=== PATIENT | male | born 1965 | race Caucasian/White ===

== ENCOUNTER → 2018-01-28 | Outpatient (CLI) | payer BC ==
--- NOTE | 2018-01-28 18:06 | XR ---
EXAMINATION TYPE: XR cervical spine comp DATE OF EXAM: 01/28/2018 COMPARISON: NONE HISTORY: Neck pain TECHNIQUE: 5 views FINDINGS: There is narrowing of C5-6 disc space widths mild spurring of the endplates. There is sligh t straightening of the vertebra. Posterior elements are intact. Neural foramina are fairly well-maint ained. Atlantoaxial facet joint is normal. There are no cervical ribs. IMPRESSION: Spondylosis at C5-6. No fracture.
--- NOTE | 2018-01-28 18:07 | XR ---
EXAMINATION TYPE: XR thoracic spine complete DATE OF EXAM: 01/28/2018 COMPARISON: NONE HISTORY: Pain TECHNIQUE: 4 views FINDINGS: Thoracic vertebra have normal alignment. Disc spaces are fairly normal. There is no evidenc e of a compression fracture. There is no paraspinal mass. Posterior elements appear intact. IMPRESSION: Negative thoracic spine exam.
--- NOTE | 2018-01-28 18:10 | XR ---
EXAMINATION TYPE: XR knee complete bilateral DATE OF EXAM: 01/28/2018 COMPARISON: NONE HISTORY: Pain TECHNIQUE: 6 views FINDINGS: I see no fracture nor dislocation. Joint spaces are fairly normal. There is no sign of join t effusion. IMPRESSION: Negative bilateral knee exam.
--- NOTE | 2018-01-28 18:11 | XR ---
EXAMINATION TYPE: XR lumbosacral spine min 4V DATE OF EXAM: 01/28/2018 COMPARISON: NONE HISTORY: Pain TECHNIQUE: 5 views FINDINGS: The lumbar vertebra have normal alignment. Posterior elements are intact. Disc spaces are n ormal. Sacroiliac joints are normal. IMPRESSION: Negative lumbar spine exam.
--- NOTE | 2018-01-28 18:13 | XR ---
EXAMINATION TYPE: XR ankle complete bilateral DATE OF EXAM: 01/28/2018 COMPARISON: NONE HISTORY: Pain TECHNIQUE: 6 views FINDINGS: Joint spaces are normal. I see no fracture nor dislocation. Soft tissues appear normal. The re are no pathologic calcifications. IMPRESSION: Negative bilateral ankle exam.
== END | disposition home or self-care (01) ==
LOC: RADXRMAIN 16:50
PROVIDERS: ATTEND Internal Medicine
DX: M47.812 Spondylosis without myelopathy or radiculopathy, cervical region (principal); M25.569 Pain in unspecified knee; M25.579 Pain in unspecified ankle and joints of unspecified foot
CPT/HCPCS: 72050; 72072; 72110

== ENCOUNTER → 2018-02-25 | Outpatient (CLI) | payer BC ==
--- NOTE | 2018-02-25 10:21 | CT ---
EXAMINATION TYPE: CT cervical spine wo con DATE OF EXAM: 02/25/2018 COMPARISON: NONE HISTORY: Neck pain and stiffness CT DLP: 618.40 mGycm Automated exposure control for dose reduction was used. TECHNIQUE: CT scan of the cervical spine is obtained without contrast, axial images are obtained, sa gittal and coronal reformatted images are also reviewed. FINDINGS: There is loss of disc height C5-6. Minimal kyphosis at C5-6 may be present. Endplate spurring has mod erate anterior thecal sac compression. Some cord contact may be present. Stenosis by measurement crit eria is not present. Bilateral severe foraminal narrowing is present due to uncovertebral joint hyper trophy C5-6. IMPRESSION: 1. Focal degenerative disc changes with loss of disc height C5-6. Uncovertebral joint hypertrophy is contributing to bilateral foraminal stenosis at that level. Endplate spurring is contributing to spin al canal narrowing. Some cord contact may be present. Consider MRI for additional evaluation of these findings. 2. Remaining disc levels have a more normal appearance.
--- NOTE | 2018-02-25 10:42 | CT ---
EXAMINATION TYPE: CT lumbar spine wo con DATE OF EXAM: 02/25/2018 COMPARISON: NONE HISTORY: Low back pain. Stiffness, Loss of range of motion CT DLP: 702.10 mGycm CONTRAST: None TECHNIQUE: CT of the lumbar spine is performed on a spiral scan at 3 mm thick sections. Reconstructed images are performed in the coronal and sagittal planes. FINDINGS: There is mild symmetrical disc bulging L3-4 and L4-5 with mild anterior thecal sac flatteni ng. No AP spinal canal stenosis. Neural foramen are patent. Mild facet hypertrophy is present L4-5. There is minimal disc bulge at L5-S1 with anterior thecal sac contact. No stenosis is present. Remaining disc levels appear unremarkable without focal disc herniation or significant disc bulge or spinal canal stenosis or neural foraminal stenosis IMPRESSION: Mild disc bulging L3-4, L4-5 and to a lesser degree L5-S1.
== END | disposition home or self-care (01) ==
LOC: RADCTMAIN 07:28
PROVIDERS: ATTEND Internal Medicine
DX: M48.02 Spinal stenosis, cervical region (principal); M99.71 Connective tissue and disc stenosis of intervertebral foramina of cervical region; M51.27 Other intervertebral disc displacement, lumbosacral region; M47.812 Spondylosis without myelopathy or radiculopathy, cervical region
CPT/HCPCS: 72125; 72131

== ENCOUNTER 2020-10-02 20:07 | Inpatient (IN) | payer BC ==
[2020-10-02] MEDS ORDERED: SODIUM CHLORIDE 0.9% 1,000 ML IV ONE (20:16)
[2020-10-02] MEDS ORDERED: HYDROmorphone 1 MG/ML 1 ML SYRINGE IVP STA (20:16)
--- NOTE | 2020-10-02 20:18 | ED ---
Abdominal Pain HPI - General Chief Complaint: Abdominal Pain Stated Complaint: ABD pain Time Seen by Provider: 10/02/20 20:12 Source: patient Mode of arrival: ambulatory Limitations: no limitations - History of Present Illness Initial Comments: 54-year-old male patient presents to the emergency department today for evaluation of right-sided abdominal pain. Patient states the pain started earlier this afternoon has been gradually worsening since. States the pain started in the midepigastric region has now migrated down to the right lower abdomen. States he has had several episodes of nausea but no vomiting. States he did one episode of diarrhea this morning but has had normal bowel movements since. Denies any hematuria, dysuria, urinary frequency, urinary urgency. Denies history of abdominal surgery. Denies any fever or chills. Denies any other medical problems. Denies any known aortic aneurysms. Patient denies any recent rash, cough, shortness of breath, chest pain, back pain, numbness, tingling, dizziness, weakness, headache, visual changes, or any other complaints. - Related Data Home Medications Medication Instructions Recorded Confirmed Tadalafil [Cialis] 5 mg PO DAILY 09/26/14 09/28/14 Allergies Allergy/AdvReac Type Severity Reaction Status Date / Time No Known Allergies Allergy Verified 10/02/20 20:11 Review of Systems ROS Statement: Those systems with pertinent positive or pertinent negative responses have been documented in the HPI. ROS Other: All systems not noted in ROS Statement are negative. Past Medical History Past Medical History: Atrial Fibrillation, Prostate Disorder Additional Past Medical History / Comment(s): HX OF AFIB, NO LONGER ON MEDICATION, HX BLOOD IN STOOL, AND HEMMORIODS History of Any Multi-Drug Resistant Organisms: None Reported Past Surgical History: Cardiac Ablation Additional Past Surgical History / Comment(s): ABLATION X2 Past Anesthesia/Blood Transfusion Reactions: No Reported Reaction Past Psychological History: No Psychological Hx Reported Smoking Status: Never smoker Past Alcohol Use History: Occasional Past Drug Use History: None Reported General Exam Limitations: no limitations General appearance: alert, in no apparent distress, other (This is a well- developed, well-nourished adult male patient in mild distress related to pain. Vital signs upon presentation are temperature 98.3F, pulse 81, respirations 16, blood pressure 175/104, pulse ox 97% on room air.) Eye exam: Absent: scleral icterus Respiratory exam: Present: normal lung sounds bilaterally. Absent: respiratory distress, wheezes, rales, rhonchi, stridor Cardiovascular Exam: Present: regular rate, normal rhythm, normal heart sounds. Absent: systolic murmur, diastolic murmur, rubs, gallop, clicks GI/Abdominal exam: Present: soft, tenderness (Right upper and right lower quadrant tenderness), guarding, normal bowel sounds. Absent: distended, rebound, rigid Neurological exam: Present: alert, oriented X3, CN II-XII intact Psychiatric exam: Present: normal affect, normal mood Skin exam: Present: warm, dry, intact, normal color. Absent: rash Course Vital Signs 10/02/20 10/02/20 10/02/20 20:09 21:00 21:30 Temperature 98.3 F Pulse Rate 81 89 84 Respiratory 16 18 18 Rate Blood Pressure 175/104 159/95 156/102 O2 Sat by Pulse 97 97 94 L Oximetry 10/02/20 10/02/20 22:00 22:30 Temperature Pulse Rate 69 76 Respiratory 18 16 Rate Blood Pressure 158/104 164/107 O2 Sat by Pulse 96 95 Oximetry Medical Decision Making - Medical Decision Making 54-year-old male patient presents to the emergency department today for evaluation of right-sided abdominal pain and nausea. Physical examination did reveal right upper quadrant right lower quadrant abdominal tenderness. Did have one episode of diarrhea this morning but normal bowel movement this evening. No urinary discomfort or related labs reviewed and are relatively unremarkable. CT abdomen and pelvis was obtained and did show abnormalities including inflammatory changes of the mesentery with a 9 cm x 5 cm ovoid mass with mass effect possible internal hernia. Patient was given pain medication and nausea medication. Upon reevaluation is still quite uncomfortable with significant abdominal tenderness and guarding. We'll admit to the hospital for further evaluation by general surgery. Patient is agreeable with this plan. Attempts were made to contact [facility] for admission without response so patient was admitted to [facility] per new protocol. - Lab Data Result diagrams: 10/02/20 20:22 10/02/20 20:22 Lab Results 10/02/20 10/02/20 10/02/20 Range/Units 20:22 20:22 20:22 WBC 10.5 (3.8-10.6) k/uL RBC 4.82 (4.30-5.90) m/uL Hgb 15.9 (13.0-17.5) gm/dL Hct 45.5 (39.0-53.0) % MCV 94.3 (80.0-100.0) fL MCH 32.9 (25.0-35.0) pg MCHC 34.9 (31.0-37.0) g/dL RDW 12.0 (11.5-15.5) % Plt Count 198 (150-450) k/uL MPV 7.2 Neutrophils % 82 % Lymphocytes % 11 % Monocytes % 5 % Eosinophils % 1 % Basophils % 1 % Neutrophils # 8.6 H (1.3-7.7) k/uL Lymphocytes # 1.1 (1.0-4.8) k/uL Monocytes # 0.5 (0-1.0) k/uL Eosinophils # 0.1 (0-0.7) k/uL Basophils # 0.1 (0-0.2) k/uL Sodium 139 (137-145) mmol/L Potassium 4.4 (3.5-5.1) mmol/L Chloride 102 (98-107) mmol/L Carbon Dioxide 32 H (22-30) mmol/L Anion Gap 5 mmol/L BUN 15 (9-20) mg/dL Creatinine 0.94 (0.66-1.25) mg/dL Est GFR (CKD-EPI)AfAm >90 (>60 ml/min/1.73 sqM) Est GFR (CKD-EPI)NonAf >90 (>60 ml/min/1.73 sqM) Glucose 128 H (74-99) mg/dL Plasma Lactic Acid Roshan 0.9 (0.7-2.0) mmol/L Calcium 9.4 (8.4-10.2) mg/dL Total Bilirubin 1.3 (0.2-1.3) mg/dL AST 29 (17-59) U/L ALT 36 (4-49) U/L Alkaline Phosphatase 82 (38-126) U/L Total Protein 7.4 (6.3-8.2) g/dL Albumin 4.6 (3.5-5.0) g/dL Amylase 50 (30-110) U/L Lipase 64 (23-300) U/L - Radiology Data Radiology results: report reviewed, image reviewed CT abdomen and pelvis was obtained report reviewed in its entirety. Impression by Dr. Carbajal shows yanira mesentery appearance. Consider inflammatory etiologies. Neoplasm such as lymphoma not excluded. Digestive internal hernia focal mass effect. No polyps section. Finding was present on 2018 CT without significant interval change favoring benign etiology. Disposition Clinical Impression: Abdominal pain, Internal hernia Disposition: ADMITTED IP TO THIS [facility] Condition: Serious Referrals: Isrrael Zepeda MD [Primary Care Provider] - 1-2 days Decision to Admit Reason: Admit from [facility] Decision Date: 10/02/20 Decision Time: 23:00
[2020-10-02] MEDS: ONDANSETRON 4 MG/2 ML VIAL IVP STA (20:27)
[2020-10-02 20:29] LABS: Basophils # (A) 0.1 k/uL (0-0.2); Basophils % (A) 1 %; Eosinophils # (A) 0.1 k/uL (0-0.7); Eosinophils % (A) 1 %; HCT 45.5 % (39.0-53.0); HGB 15.9 gm/dL (13.0-17.5); Lymphocytes # (A) 1.1 k/uL (1.0-4.8); Lymphocytes % (A) 11 %; MCH 32.9 pg (25.0-35.0); MCHC 34.9 g/dL (31.0-37.0); MCV 94.3 fL (80.0-100.0); Mean Platelet Volume 7.2; Monocytes # (A) 0.5 k/uL (0-1.0); Monocytes % (A) 5 %; Neutrophils # (A) 8.6 k/uL (1.3-7.7); Neutrophils % (A) 82 %; Platelet Count 198 k/uL (150-450); RBC 4.82 m/uL (4.30-5.90); WBC 10.5 k/uL (3.8-10.6)
[2020-10-02 20:39] LABS: ALT 36 U/L (4-49); AST 29 U/L (17-59); African American GFR (CKD) >90 (>60 ml/min/1.73 sqM); Albumin 4.6 g/dL (3.5-5.0); Alkaline Phosphatase 82 U/L (38-126); Amylase 50 U/L (30-110); Anion Gap 5 mmol/L; Blood Urea Nitrogen 15 mg/dL (9-20); Calcium 9.4 mg/dL (8.4-10.2); Carbon Dioxide 32 mmol/L (22-30); Chloride 102 mmol/L (98-107); Glucose 128 mg/dL (74-99); Lipase 64 U/L (23-300); Non-African American GFR(CKD) >90 (>60 ml/min/1.73 sqM); Potassium 4.4 mmol/L (3.5-5.1); Sodium 139 mmol/L (137-145); Total Bilirubin 1.3 mg/dL (0.2-1.3); Total Protein 7.4 g/dL (6.3-8.2)
--- NOTE | 2020-10-02 21:25 | CT ---
EXAMINATION TYPE: CT abdomen pelvis w con DATE OF EXAM: 10/02/2020 COMPARISON: None. HISTORY: Generalized abdominal pain that started today. CT DLP: 1200.2 mGycm, Automated Exposure Control for Dose Reduction was Utilized. CONTRAST: CT scan of the abdomen and pelvis is performed without oral but with IV Contrast, patient injected wi th 100ml mL of Isovue 300. FINDINGS: LUNG BASES: No significant abnormality is appreciated. LIVER/GB: Liver is heterogeneously hypodense relative to spleen suggesting mild diffuse fatty infiltr ation. PANCREAS: No significant abnormality is seen. SPLEEN: No significant abnormality is seen. ADRENALS: Nonspecific 1.9 cm left adrenal mass axial image 24. Lesion noted CT lumbar spine 2018 axia l image 15 with Hounsfield units measure -2 consistent with benign lipid rich adenoma. KIDNEYS: Symmetric cortical medullary uptake and excretion without concerning renal mass or hydroneph rosis seen bilaterally. BOWEL: Suboptimal evaluation without enteric contrast. Debris-filled stomach suggests recent meal ing estion. No suspicious small or large bowel dilatation. PROSTATE/SEMINAL VESICLES: Mildly Enlarged prostate gland consistent with BPH, correlate clinically. LYMPH NODES: Mild yanira mesentery appearance in the left midabdomen with prominent but predominantly subcentimeter lymph nodes. A few slightly enlarged lymph nodes including 2.2 x 2.1 cm lymph node axia l image 42. There is suggestion of local mass effect due to ovoid 9.5 x 5.0 cm area axial image 43, p ossible internal hernia. Some prominence of mesenteric vessels on coronal images without obvious defi arthur lesion, suggestion of more defined lesion on sagittal images with some prominent mesenteric vesse ls. Findings were present and partially imaged on February 25, 2018 CT. OSSEOUS STRUCTURES: Mild disc space narrowing L5-S1 level. Mild facet arthropathy lower lumbar levels . Moderate to borderline severe symmetric axial joint space loss in both hips somewhat pronounced for patient's age. OTHER: No significant additional abnormality is seen. IMPRESSION: Yanira mesentery appearance. Consider inflammatory etiologies. Neoplasm such as lymphoma n ot excluded. Suggestion of internal hernia with local mass effect. No bowel obstruction. Finding was present on 2018 CT without significant interval change favoring benign etiology.
[2020-10-02] MEDS ORDERED: NALOXONE 0.4 MG/ML 1 ML VIAL IV PRN (22:10)
[2020-10-02] MEDS ORDERED: HYDROmorphone 1 MG/ML 1 ML SYRINGE IVP PRN (22:10)
[2020-10-02] MEDS ORDERED: ONDANSETRON 4 MG/2 ML VIAL IVP PRN (22:10)
[2020-10-02] MEDS: SODIUM CHLORIDE 0.9% 1,000 ML IV SCH (22:32)
[2020-10-02 22:49] LABS: Appearance,Urine Clear (Clear); Bilirubin,Urine Negative (Negative); Blood,Urine Negative (Negative); Color,Urine Yellow; Glucose,Urine (UA) Negative (Negative); Ketones,Urine 1+ (Negative); Leukocyte Esterase,Urine Negative (Negative); Nitrite,Urine Negative (Negative); PH, Urine 6.5 (5.0-8.0); Protein,Urine Negative (Negative); Urobilinogen,Urine <2.0 mg/dL (<2.0)
[2020-10-02] MEDS ORDERED: tiZANidine 4 MG TAB PO PRN (23:46)
[2020-10-03] MEDS ORDERED: KETOROLAC 15 MG/ML 1 ML VIAL IVP STA (00:19)
[2020-10-03] MEDS ORDERED: KETOROLAC 15 MG/ML 1 ML VIAL IVP PRN (01:04)
--- NOTE | 2020-10-03 01:29 | P.HPIM ---
History of Present Illness H&P Date: 10/02/20 Chief Complaint: abd pain 54 year old male with hypertension , not currently on treatment, h/o afib s/p ablation patient comes in with abd pain started in the afternoon as epigastric abd pain , then shifted to right lower quadrant abd pain. 8-10/10 in severity , sharp pa in , worse with movement, one episode of diarrhea resolved, no bleeding, no sebas, no vomiting, but positive nausea, no fever, no chills, no histroy of renal stones, no dysuria or other urinary symptoms , no hematuria , no flank pain , no [place] to abd, no recent travel , no unsanitary food or drink. pain is not improving, he denies any similar episodes in the past in the ED pain improved with dilaudid but comes back once medication wears off patient does regular core muscle exercising, denies heavy alcohol use, denies any drug use, blood work unremarkable CT abd , showed unchanged compared to [address] enlargement, prominent mesenteric blood vessels and internal hernia Review of Systems Pertinent positives as noted in HPI. All other systems were reviewed and are negative Past Medical History Past Medical History: Atrial Fibrillation, Prostate Disorder Additional Past Medical History / Comment(s): HX OF AFIB, NO LONGER ON MEDICATION, HX BLOOD IN STOOL, AND HEMMORIODS History of Any Multi-Drug Resistant Organisms: None Reported Past Surgical History: Cardiac Ablation Additional Past Surgical History / Comment(s): ABLATION X2 Past Anesthesia/Blood Transfusion Reactions: No Reported Reaction Past Psychological History: No Psychological Hx Reported Smoking Status: Never smoker Past Alcohol Use History: Occasional Past Drug Use History: None Reported - Past Family History family Additional Family Medical History / Comment(s): rossy runs in the family Medications and Allergies Home Medications Medication Instructions Recorded Confirmed Type Tadalafil [Cialis] 5 mg PO DAILY 09/26/14 10/02/20 History tiZANidine HCL [Zanaflex] 4 mg PO HS PRN 10/02/20 10/02/20 History Allergies Allergy/AdvReac Type Severity Reaction Status Date / Time No Known Allergies Allergy Verified 10/02/20 23:13 Physical Exam Vitals: Vital Signs Temp Pulse Resp BP Pulse Ox 10/02/20 23:03 98.0 F 60 18 153/94 100 10/02/20 23:00 75 18 147/95 95 10/02/20 22:30 76 16 164/107 95 10/02/20 22:00 69 18 158/104 96 10/02/20 21:30 84 18 156/102 94 L 10/02/20 21:00 89 18 159/95 97 10/02/20 20:09 98.3 F 81 16 175/104 97 Intake and Output 10/02/20 10/02/20 10/03/20 14:59 22:59 06:59 Other: Weight 102.058 kg Constitutional: No acute distress, conversant, pleasant Eyes: Anicteric sclerae, moist conjunctiva, Pupils equal round reactive to light ENMT: NC/AT Oropharynx clear, no erythema, or exudates Neck: Supple, FROM, no masses, or JVD No carotid bruits No thyromegaly Lungs: Clear to auscultation Clear to percussion Normal respiratory effort, no accessory muscle use Cardiovascular: Heart regular in rate and rhythm, No murmurs, gallops, or rubs No peripheral edema Abdominal: Soft tenderness to superficial and deep palpation with voluntary guarding especially on the right side of abd, no palpable masses , no rebound Abdomen moving with respiration Normoactive bowel sounds No hepatomegaly, No splenomegaly No palpable mass No abdominal wall hernia noted Skin: Normal temperature, tone, texture, turgor No induration No subcutaneous nodules No rash, lesions No ulcers Extremities: No digital cyanosis No clubbing Pedal pulses intact and symmetrical Radial pulses intact and symmetrical No calf tenderness Psychiatric: Alert and oriented to person, place and time Appropriate affect fair judgement Neuro Muscles Strength 5/5 in all 4 extremities Sensation to light touch grossly present throughout Cranial nerves II-XII grossly intact No focal sensory deficits Lymphatics: no palpable cervical or supraclavicular , or inguinal lymph nodes Results CBC & Chem 7: 10/02/20 20:22 10/02/20 20:22 Labs: Abnormal Lab Results - Last 24 Hours (Table) 10/02/20 10/02/20 10/02/20 Range/Units 20:22 20:22 22:26 Neutrophils # 8.6 H (1.3-7.7) k/uL Carbon Dioxide 32 H (22-30) mmol/L Glucose 128 H (74-99) mg/dL Ur Specific [place] 1.050 H (1.001-1.035) Urine Ketones 1+ H (Negative) Assessment and Plan Assessment: acute abd pain pain control supportive care IVF hydration General surgery consult lipase , LA unremarkable check CPK CT abd noted NPO AMN chronic condition h/o afib s/p ablation hypertension , with dietry and life style modification , not currently on pharmacologic treatment BPH degenerative disc disease, muscle relaxants CODE STATUS:full code DVT prophylaxis: mechanical Discussed with: Patient, ER, RN Anticipated length of stay < than [address]: home A total of 75 minutes was spent on the care of this complex patient more than 50% of the time was spent in counseling and care coordination.
[2020-10-03] MEDS: HYDROmorphone 0.5 MG/0.5 ML SYRINGE IVP PRN ×2 (01:54→08:12)
[2020-10-03 08:21] LABS: Basophils % (A) 0 %; Eosinophils # (A) 0.1 k/uL (0-0.7); Eosinophils % (A) 1 %; HCT 42.1 % (39.0-53.0); HGB 14.3 gm/dL (13.0-17.5); Lymphocytes # (A) 1.3 k/uL (1.0-4.8); Lymphocytes % (A) 15 %; MCH 31.4 pg (25.0-35.0); MCHC 33.9 g/dL (31.0-37.0); MCV 92.7 fL (80.0-100.0); Monocytes # (A) 0.5 k/uL (0-1.0); Monocytes % (A) 6 %; Neutrophils # (A) 6.3 k/uL (1.3-7.7); Neutrophils % (A) 77 %; Platelet Count 185 k/uL (150-450); RBC 4.54 m/uL (4.30-5.90); RDW 12.6 % (11.5-15.5); WBC 8.1 k/uL (3.8-10.6)
[2020-10-03 08:43] LABS: ALT 27 U/L (4-49); AST 22 U/L (17-59); African American GFR (CKD) >90 (>60 ml/min/1.73 sqM); Albumin 3.7 g/dL (3.5-5.0); Alkaline Phosphatase 69 U/L (38-126); Anion Gap 5 mmol/L; Blood Urea Nitrogen 11 mg/dL (9-20); Calcium 8.4 mg/dL (8.4-10.2); Carbon Dioxide 27 mmol/L (22-30); Chloride 105 mmol/L (98-107); Glucose 97 mg/dL (74-99); Non-African American GFR(CKD) >90 (>60 ml/min/1.73 sqM); Potassium 3.7 mmol/L (3.5-5.1); Sodium 137 mmol/L (137-145); Total Bilirubin 1.7 mg/dL (0.2-1.3); Total Protein 6.1 g/dL (6.3-8.2)
--- NOTE | 2020-10-03 09:59 | P.GSCN ---
History of Present Illness Consult date: 10/03/20 History of present illness: CHIEF COMPLAINT: Abdominal pain HISTORY OF PRESENT ILLNESS: This is a 54-year-old male with a known past medical history of atrial fibrillation and treated with cardiac ablation. He is not on any medication or anticoagulation for his atrial fibrillation. Patient presents to the emergency room with sudden right-sided abdominal pain that started around noon yesterday and continued to increase in intensity. He reports that the pain started on the right lower quadrant and radiated up the right side of the abdomen. The pain became so severe that he was doubled over. He has never had pain like this before. He denies any prior abdominal surgeries. He denies any fever, chills or sweats. Does admit to having some nausea. Patient did have one episode of diarrhea earlier yesterday otherwise bowel movement have been normal. Computed tomography scan shows yanira mesentery appearance. Consider inflammatory etiologies. Neoplasm such as lymphoma not excluded. Suggestion of internal hernia with local mass effect. No bowel obstruction. Findings was present on 2018 CT without significant interval change favoring benign etiology. PAST MEDICAL HISTORY: See list. PAST SURGICAL HISTORY: See list. MEDICATIONS: See list. ALLERGIES: See list. SOCIAL HISTORY: No illicit drug use. REVIEW OF SYSTEMS: CONSTITUTIONAL: Denies fever or chills. HEENT: Denies blurred vision, vision changes, or eye pain. Denies hemoptysis CARDIOVASCULAR: Denies chest pain or pressure. RESPIRATORY: No shortness of breath. GASTROINTESTINAL: See HPI for pertinent findings HEMATOLOGIC: Denies bleeding disorders. GENITOURINARY: Denies any blood in urine or increased urinary frequency. SKIN: Denies pruitis. Denies rash. PHYSICAL EXAM: VITAL SIGNS: Reviewed GENERAL: Well-developed in no acute distress. HEENT: No sclera icterus. Extraocular movements grossly intact. Moist buccal mucosa. Head is atraumatic, normocephalic. No nasal drainage. ABDOMEN: Soft. Nondistended. Patient has tenderness in the right lower quadrant. Patient continues to have tenderness up the right side of the abdomen. Pushing on the left side of the abdomen causes pain on the right NEUROLOGIC: Alert and oriented. Cranial nerves II through XII grossly intact. LABORATORY DATA: WBC 8.1 hemoglobin 14.3 platelets 185 sodium 137 potassium 3.7 creatinine 0.77 glucose 97 total bili 1.7 LFTs normal lipase normal IMAGING: Computed tomography scan shows yanira mesentery appearance. Consider inflammatory etiologies. Neoplasm such as lymphoma not excluded. Suggestion of internal hernia with local mass effect. No bowel obstruction. Findings was pre sent on 2018 CT without significant interval change favoring benign etiology. ASSESSMENT: 1. Abdominal pain 2. Internal hernia with local mass effect noted on CAT scan likely contributing to patient's abdominal pain PLAN: -Patient is scheduled for exploratory laparotomy today with Dr. Cruz -Keep patient nothing by mouth -Continue IV fluids -Continue pain medication as needed Thank you for this consultation Physician Toxicology Supervisor note has been reviewed by physician. Signing provider agrees with the documented findings, assessment, and plan of care. Past Medical History Past Medical History: Atrial Fibrillation, Prostate Disorder Additional Past Medical History / Comment(s): HX OF AFIB, NO LONGER ON MEDICATION, HX BLOOD IN STOOL, AND HEMMORIODS History of Any Multi-Drug Resistant Organisms: None Reported Past Surgical History: Cardiac Ablation Additional Past Surgical History / Comment(s): ABLATION X2 Past Anesthesia/Blood Transfusion Reactions: No Reported Reaction Past Psychological History: No Psychological Hx Reported Smoking Status: Never smoker Past Alcohol Use History: Occasional Past Drug Use History: None Reported - Past Family History family Additional Family Medical History / Comment(s): rossy runs in the family Medications and Allergies Home Medications Medication Instructions Recorded Confirmed Type Tadalafil [Cialis] 5 mg PO DAILY 09/26/14 10/02/20 History tiZANidine HCL [Zanaflex] 4 mg PO HS PRN 10/02/20 10/02/20 History Allergies Allergy/AdvReac Type Severity Reaction Status Date / Time No Known Allergies Allergy Verified 10/02/20 23:13 Surgical - Exam Vital Signs Temp Pulse Resp BP Pulse Ox 98.3 F 81 16 175/104 97 10/02/20 20:09 10/02/20 20:09 10/02/20 20:09 10/02/20 20:09 10/02/20 20:09 Results - Labs 10/03/20 07:51 10/03/20 07:51 Abnormal Lab Results - Last 24 Hours (Table) 10/02/20 10/02/20 10/02/20 Range/Units 20:22 20:22 22:26 Neutrophils # 8.6 H (1.3-7.7) k/uL Carbon Dioxide 32 H (22-30) mmol/L Glucose 128 H (74-99) mg/dL Total Bilirubin (0.2-1.3) mg/dL Total Protein (6.3-8.2) g/dL Ur Specific [place] 1.050 H (1.001-1.035) Urine Ketones 1+ H (Negative) 10/03/20 Range/Units 07:51 Neutrophils # (1.3-7.7) k/uL Carbon Dioxide (22-30) mmol/L Glucose (74-99) mg/dL Total Bilirubin 1.7 H (0.2-1.3) mg/dL Total Protein 6.1 L (6.3-8.2) g/dL Ur Specific [place] (1.001-1.035) Urine Ketones (Negative) Diabetes panel 10/02/20 10/03/20 Range/Units 20:22 07:51 Sodium 139 137 (137-145) mmol/L Potassium 4.4 3.7 (3.5-5.1) mmol/L Chloride 102 105 (98-107) mmol/L Carbon Dioxide 32 H 27 (22-30) mmol/L BUN 15 11 (9-20) mg/dL Creatinine 0.94 0.77 (0.66-1.25) mg/dL Glucose 128 H 97 (74-99) mg/dL Calcium 9.4 8.4 (8.4-10.2) mg/dL AST 29 22 (17-59) U/L ALT 36 27 (4-49) U/L Alkaline Phosphatase 82 69 (38-126) U/L Total Protein 7.4 6.1 L (6.3-8.2) g/dL Albumin 4.6 3.7 (3.5-5.0) g/dL Calcium panel 10/02/20 10/03/20 Range/Units 20:22 07:51 Calcium 9.4 8.4 (8.4-10.2) mg/dL Albumin 4.6 3.7 (3.5-5.0) g/dL Pituitary panel 10/02/20 10/03/20 Range/Units 20:22 07:51 Sodium 139 137 (137-145) mmol/L Potassium 4.4 3.7 (3.5-5.1) mmol/L Chloride 102 105 (98-107) mmol/L Carbon Dioxide 32 H 27 (22-30) mmol/L BUN 15 11 (9-20) mg/dL Creatinine 0.94 0.77 (0.66-1.25) mg/dL Glucose 128 H 97 (74-99) mg/dL Calcium 9.4 8.4 (8.4-10.2) mg/dL Adrenal panel 10/02/20 10/03/20 Range/Units 20:22 07:51 Sodium 139 137 (137-145) mmol/L Potassium 4.4 3.7 (3.5-5.1) mmol/L Chloride 102 105 (98-107) mmol/L Carbon Dioxide 32 H 27 (22-30) mmol/L BUN 15 11 (9-20) mg/dL Creatinine 0.94 0.77 (0.66-1.25) mg/dL Glucose 128 H 97 (74-99) mg/dL Calcium 9.4 8.4 (8.4-10.2) mg/dL Total Bilirubin 1.3 1.7 H (0.2-1.3) mg/dL AST 29 22 (17-59) U/L ALT 36 27 (4-49) U/L Alkaline Phosphatase 82 69 (38-126) U/L Total Protein 7.4 6.1 L (6.3-8.2) g/dL Albumin 4.6 3.7 (3.5-5.0) g/dL
--- NOTE | 2020-10-03 13:44 | P.HPIM ---
History of Present Illness Patient is a pleasant 54-year-old male came in with complaints of right upper quadrant abdominal pain sharp in nature 10 chest in severity presently 8/10 in severity and radiating up of the right upper quadrant patient's abdominal pain started yesterday afternoon associated with nausea . Did have [address] of the abdomen is consistent with metastatic inflammation. Patient was a evaluated by general surgery, believes patient hasn't traveled hernia and patient will undergo expiratory laparotomy today. Review of Systems REVIEW OF SYSTEMS: CONSTITUTIONAL: No fever, no malaise, no fatigue. HEENT: No recent visual problems or hearing problems. Denied any sore throat. CARDIOVASCULAR: No chest pain, orthopnea, PND, no palpitations, no syncope. PULMONARY: No shortness of breath, no cough, no hemoptysis. GASTROINTESTINAL: As mentioned in HPI NEUROLOGICAL: No headaches, no weakness, no numbness. HEMATOLOGICAL: Denies any bleeding or petechiae. GENITOURINARY: Denies any burning micturition, frequency, or urgency. MUSCULOSKELETAL/RHEUMATOLOGICAL: Denies any joint pain, swelling, or any muscle pain. ENDOCRINE: Denies any polyuria or polydipsia. The rest of the 14-point review of systems is negative. Past Medical History Past Medical History: Atrial Fibrillation, Prostate Disorder Additional Past Medical History / Comment(s): HX OF AFIB, NO LONGER ON MEDICATION, HX BLOOD IN STOOL, AND HEMMORIODS History of Any Multi-Drug Resistant Organisms: None Reported Past Surgical History: Cardiac Ablation Additional Past Surgical History / Comment(s): ABLATION X2 Past Anesthesia/Blood Transfusion Reactions: No Reported Reaction Past Psychological History: No Psychological Hx Reported Smoking Status: Never smoker Past Alcohol Use History: Occasional Past Drug Use History: None Reported - Past Family History family Additional Family Medical History / Comment(s): rossy runs in the family Medications and Allergies Home Medications Medication Instructions Recorded Confirmed Type Tadalafil [Cialis] 5 mg PO DAILY 09/26/14 10/02/20 History tiZANidine HCL [Zanaflex] 4 mg PO HS PRN 10/02/20 10/02/20 History Allergies Allergy/AdvReac Type Severity Reaction Status Date / Time No Known Allergies Allergy Verified 10/02/20 23:13 Physical Exam Vitals: Vital Signs Temp Pulse Pulse Resp BP BP Pulse Ox 12/16/20 08:32 16 10/03/20 08:06 97.2 F L 76 16 132/78 95 10/03/20 03:00 97.8 F 84 18 156/70 95 10/02/20 23:16 97.9 F 71 16 145/94 97 10/02/20 23:03 98.0 F 60 18 153/94 100 10/02/20 23:00 75 18 147/95 95 10/02/20 22:30 76 16 164/107 95 10/02/20 22:00 69 18 158/104 96 10/02/20 21:30 84 18 156/102 94 L 10/02/20 21:00 89 18 159/95 97 10/02/20 20:09 98.3 F 81 16 175/104 97 Intake and Output 10/02/20 10/03/20 10/03/20 22:59 06:59 14:59 Other: # Voids 0 1 Weight 102.058 kg 102.058 kg PHYSICAL EXAMINATION: GENERAL: The patient is alert and oriented x3, not in any acute distress. Well developed, well nourished. HEENT: Pupils are round and equally reacting to light. EOMI. No scleral icterus. No conjunctival pallor. Normocephalic, atraumatic. No pharyngeal erythema. No thyromegaly. CARDIOVASCULAR: S1 and S2 present. No murmurs, rubs, or gallops. PULMONARY: Chest is clear to auscultation, no wheezing or crackles. ABDOMEN: Soft, tenderness in the right lower quadrant no rebound or rigidity, nondistended, normoactive bowel sounds. No palpable organomegaly. MUSCULOSKELETAL: No joint swelling or deformity. EXTREMITIES: No cyanosis, clubbing, or pedal edema. NEUROLOGICAL: Gross neurological examination did not reveal any focal deficits. SKIN: No rashes. Results CBC & Chem 7: 10/03/20 07:51 10/03/20 07:51 Labs: Abnormal Lab Results - Last 24 Hours (Table) 10/02/20 10/02/20 10/02/20 Range/Units 20:22 20:22 22:26 Neutrophils # 8.6 H (1.3-7.7) k/uL Carbon Dioxide 32 H (22-30) mmol/L Glucose 128 H (74-99) mg/dL Total Bilirubin (0.2-1.3) mg/dL Creatine Kinase (55-170) U/L Total Protein (6.3-8.2) g/dL Ur Specific [place] 1.050 H (1.001-1.035) Urine Ketones 1+ H (Negative) 10/03/20 10/03/20 Range/Units 07:51 07:51 Neutrophils # (1.3-7.7) k/uL Carbon Dioxide (22-30) mmol/L Glucose (74-99) mg/dL Total Bilirubin 1.7 H (0.2-1.3) mg/dL Creatine Kinase 51 L (55-170) U/L Total Protein 6.1 L (6.3-8.2) g/dL Ur Specific [place] (1.001-1.035) Urine Ketones (Negative) Thrombosis Risk Factor Assmnt - Choose All That Apply Any of the Below Risk Factors Present?: No Assessment and Plan Plan: -abdominal pain: Etiology is not clear possibly a ventral hernia patient will undergo x-ray laparotomy today. -History of atrial fibrillation presently sinus rhythm patient is status post ablation
--- NOTE | 2020-10-03 14:24 | P.PN ---
Subjective Progress Note Date: 10/03/20 Principal diagnosis: Abdominal pain Patient seen and examined at bedside. Patient states he still continues to have abdominal pain and discomfort in the epigastric and right and lower quadrants. Pain is exacerbated by movements. Patient is unable to tolerate the pain medication because it makes him feel funny. Patient is due to go for a scope later today. Patient denies chest pain, shortness of breath, nausea, fever, or chills. Objective - Vital Signs Vital signs: Vital Signs Temp 97.2 F L 10/03/20 08:06 Pulse 76 10/03/20 08:06 Resp 16 10/03/20 08:32 BP 132/78 10/03/20 08:06 Pulse Ox 95 10/03/20 08:06 Intake & Output 10/02/20 10/03/20 10/03/20 18:59 06:59 18:59 Weight 102.058 kg Other: # Voids 0 1 - Exam General: [non toxic], [no distress], [appears at stated age] Derm: [warm], [dry] Head: [atraumatic], [normocephalic], [symmetric] Eyes: [EOMI], [no lid lag], [anicteric sclera] Mouth: [no lip lesion], [mucus membranes moist] Cardiovascular: [S1S2 reg], [no murmur], [positive posterior tibial pulse bilateral], Lungs: [CTA bilateral], [no rhonchi, no rales] , [no accessory muscle use] Abdominal: [soft], [ tender to palpation], [no guarding, positive rebound], [no appreciable organomegaly] Ext: [no gross muscle atrophy], [no edema], [no contractures] Neuro: [ CN II-XI grossly intact], [no focal neuro deficits] Psych: [Alert], [oriented], [appropriate affect] - Labs CBC & Chem 7: 10/03/20 07:51 10/03/20 07:51 Labs: Abnormal Lab Results - Last 24 Hours (Table) 10/02/20 10/02/20 10/02/20 Range/Units 20:22 20:22 22:26 Neutrophils # 8.6 H (1.3-7.7) k/uL Carbon Dioxide 32 H (22-30) mmol/L Glucose 128 H (74-99) mg/dL Total Bilirubin (0.2-1.3) mg/dL Creatine Kinase (55-170) U/L Total Protein (6.3-8.2) g/dL Ur Specific [place] 1.050 H (1.001-1.035) Urine Ketones 1+ H (Negative) 10/03/20 10/03/20 Range/Units 07:51 07:51 Neutrophils # (1.3-7.7) k/uL Carbon Dioxide (22-30) mmol/L Glucose (74-99) mg/dL Total Bilirubin 1.7 H (0.2-1.3) mg/dL Creatine Kinase 51 L (55-170) U/L Total Protein 6.1 L (6.3-8.2) g/dL Ur Specific [place] (1.001-1.035) Urine Ketones (Negative) Assessment and Plan Assessment: -Acute abdominal pain pain control supportive care IVF hydration General surgery recommendations appreciated lipase , LA unremarkable CT abd noted NPO Patient is scheduled for exploratory laparotomy today with Dr. Cruz -chronic conditions h/o afib s/p ablation hypertension , with dietry and life style modification , not currently on p harmacologic treatment BPH degenerative disc disease, muscle relaxants -CODE STATUS:full code -DVT prophylaxis: mechanical -Discussed with: Patient -Anticipated length of stay < than 2 midnights -Anticipated discharge place: home A total of 30 minutes was spent on the care of this complex patient more than 50% of the time was spent in counseling and care coordination. Time with Patient: Greater than 30
[2020-10-03 15:22] LABS: Partial Thromboplastin Time 24.9 sec (22.0-30.0); Prothrombin Time 10.2 sec (9.0-12.0)
[2020-10-03] MEDS ORDERED: IV FLUID CONTINUATION 1,000 ML IV ONE (16:59)
[2020-10-03] MEDS ORDERED: fentaNYL (PF) 50 MCG/ML 2 ML AMP IV ONE (17:33)
[2020-10-03] MEDS ORDERED: MIDAZOLAM 2 MG/2 ML VIAL IV ONE (17:33)
[2020-10-03] MEDS: ONDANSETRON 4 MG/2 ML VIAL IVP STA (17:41)
[2020-10-03] MEDS ORDERED: DEXAMETHASONE SOD PHOSPHATE 4 MG/ML 1 ML VIAL IV ONE (17:41)
[2020-10-03] MEDS ORDERED: diphenhydrAMINE 50 MG/ML 1 ML VIAL IVP PRN (17:52)
[2020-10-03] MEDS: SODIUM CHLORIDE 0.9% 1,000 ML IV SCH ×4 (19:03→22:35)
[2020-10-03] MEDS ORDERED: LACTATED RINGERS 1,000 ML IV ONE ×2 (19:52→20:27)
[2020-10-03] MEDS ORDERED: SODIUM CHLORIDE 0.9% 100 ML with ceFAZolin 2,000 MG IV ONE ×2 (19:57)
[2020-10-03] MEDS ORDERED: SODIUM CHLORIDE 0.9% 50 ML with ceFAZolin 2,000 MG IV ONE ×2 (19:57)
[2020-10-03] MEDS ORDERED: ONDANSETRON 4 MG/2 ML VIAL IVP PRN (20:27)
[2020-10-03] MEDS ORDERED: HYDROmorphone 0.5 MG/0.5 ML SYRINGE IVP PRN (20:27)
[2020-10-03] MEDS ORDERED: NALOXONE 0.4 MG/ML 1 ML VIAL IV PRN ×2 (20:27→21:25)
[2020-10-03] MEDS: ROPIVACAINE 250 MG, HYDROMORPHONE (PF) 5 MG in SODIUM CHLORIDE 0.9% 200 ML EPIDURAL PRN (20:35)
--- NOTE | 2020-10-03 20:40 | P.OP ---
Date of Procedure: 10/03/20 Preoperative Diagnosis: Internal hernia Postoperative Diagnosis: Acute appendicitis Procedure(s) Performed: Exploratory laparotomy Open appendectomy Anesthesia: YUVAL Surgeon: Marshall Cruz Pathology: other (Appendix) Condition: stable Disposition: PACU Description of Procedure: The patient's placed on the operating table in supine position. He received general anesthesia. His abdomen was prepped and draped usual sterile fashion. The abdomen was entered through midline incision. Upon entering the abdomen the Bookwalter tract with wound. The right lower quadrant examined. There appeared to be evidence of a appendicitis. The cecum was mobilized brought into its midline. The mesoappendix was divided with the Ancef device. And then the appendectomy is performed by ligating the base the appendix 0 silk tie and then dividing the appendix the specimens of pathology. No significant internal hernia was visualized. The small bowel was run from ligament of Treitz to the terminal ileum. The fascia was then closed with looped #1 PDS suture. Skin was closed fredy. Patient top she will was sent to recovery room in stable condition.
[2020-10-03] MEDS ORDERED: HYDROcodone/APAP 5-325MG 1 EACH TAB PO PRN (21:25)
--- NOTE | 2020-10-03 21:25 | P.OP ---
Date of Procedure: 10/03/20 Preoperative Diagnosis: Acute appendicitis Postoperative Diagnosis: Acute appendicitis Procedure(s) Performed: Laparoscopic appendectomy Anesthesia: YUVAL Surgeon: Marshall Cruz Estimated Blood Loss (ml): 10 Pathology: other (Appendix) Condition: stable Disposition: PACU Description of Procedure: HarmThe patient's placed on the operating table in the supine position. The patient received general anesthesia. The abdomen was prepped and draped in the usual sterile fashion. The skin was anesthetized 1% local Xylocaine at the trocar sites. Using an 11 blade the skin was incised at the umbilicus. The umbilicus was grasped with a Jeimy clamp and then a Veress needle was placed into the peritoneal cavity. Position of the Veress needle was confirmed with positive drop test. After adequate insufflation a 5 mm trocar was placed into the peritoneal cavity. The abdomen was further insufflated. And then the laparoscope was placed in the peritoneal cavity. Next a 5 mm trocar was placed in the midline suprapubic position. And then a 10 mm trocar was placed in the midline epigastric position. The patient was rotated with the right side up and in Trendelenburg. The appendix was visualized. The appendix appeared to be inflamed. The appendix was grasped and then using the Harmonic scissors the mesoappendix was divided. A PDS Endoloop was then placed around the base of the appendix. And then the appendix was divided using Harmonic scissors. The appendix was placed into an Endo Catch and brought out through the 10 mm trocar site. The abdomen was irrigated. There is no bleeding seen. The trochars withdrawn. The skin was closed interrupted 3-0 Monocryl suture. Dermabond dressing was applied. Patient was sent to recovery room in stable condition.
[2020-10-04 06:21] LABS: Basophils % (A) 0 %; Eosinophils % (A) 0 %; HCT 40.4 % (39.0-53.0); HGB 14.1 gm/dL (13.0-17.5); Lymphocytes # (A) 0.6 k/uL (1.0-4.8); Lymphocytes % (A) 8 %; MCH 33.1 pg (25.0-35.0); MCHC 34.8 g/dL (31.0-37.0); MCV 95.1 fL (80.0-100.0); Mean Platelet Volume 7.6; Monocytes # (A) 0.4 k/uL (0-1.0); Monocytes % (A) 5 %; Neutrophils % (A) 86 %; Platelet Count 179 k/uL (150-450); RBC 4.24 m/uL (4.30-5.90); RDW 11.9 % (11.5-15.5); WBC 8.2 k/uL (3.8-10.6)
--- NOTE | 2020-10-04 08:31 | P.PN ---
Progress Note - Text Progress Note Date: 10/04/20 (650) Anesthesia Postop [day 1] Status post exploratory laparotomy with epidural day #2 Patient seen and examined. Doing well denies. VAS 5-6 out of 10 with cough.. [No nausea vomiting or pruritus]. Ropivacaine [0.1%] with [Dilaudid 20 mcg/mL] at 8 mL an hour. Objective: Vital signs reviewed Lungs: Good chest excursion Abdomen: Appears nondistended Other: [Epidural Site Intact without induration. Dressing intact] Neuro: [No apparent motor block]. [Sensory within normal limits]. Assessment: Status post exploratory laparotomy [postop day 1] Plan: Continue current care with your medical management. Anticipate [reevaluation tomorrow]. Platelets 179. Noticed Lovenox was ordered, communicated with Persantine and to change order to subcu heparin. Nurse notified to hold Lovenox.
[2020-10-04] MEDS ORDERED: ENOXAPARIN 40 MG/0.4 ML SYRINGE SQ SCH (09:00)
[2020-10-04 09:59] LABS: Albumin 3.8 g/dL (3.80-4.90); Albumin/Globulin Ratio 2.11 (1.60-3.17); Anion Gap 6.6 mmol/L (4.00-12.00); Calcium 8.2 mg/dL (8.7-10.3); Carbon Dioxide 26.4 mmol/L (21.6-31.8); Globulin 1.8 g/dL (1.6-3.3); Non-African American GFR(CKD) 102.7 (60.0-200.0); Potassium 4.4 mmol/L (3.5-5.5); Total Bilirubin 1.3 mg/dL (0.2-1.2); Total Protein 5.6 g/dL (6.2-8.2)
[2020-10-04] MEDS: ONDANSETRON 4 MG/2 ML VIAL IVP PRN ×2 (09:59→17:17)
[2020-10-04] MEDS: SODIUM CHLORIDE 0.9% 1,000 ML IV SCH ×3 (09:59→21:01)
[2020-10-04] MEDS: PIPERACILLIN-TAZOBACTAM 3.375 GM in SODIUM CHLORIDE 0.9% 100 ML IVPB SCH ×3 (11:16→23:55)
[2020-10-04] MEDS: HEPARIN SODIUM,PORCINE 5,000 UNIT/ML 1 ML VIAL SQ SCH ×2 (11:41→21:01)
--- NOTE | 2020-10-04 11:41 | P.PN ---
Subjective Progress Note Date: 10/04/20 CHIEF COMPLAINT: Acute appendicitis HISTORY OF PRESENT ILLNESS: Status post exploratory laparotomy with open appendectomy for acute appendicitis. Postop day #1. Patient is rating his pain about a 5 out of 10 at the incision site. He currently has epidural. He did have some nausea this morning and was complaining of gas discomfort. He did pass a small amount of gas. Afebrile. WBC 8.2 currently on a clear liquid diet. PHYSICAL EXAM: VITAL SIGNS: Reviewed. GENERAL: Well-developed in no acute distress. HEENT: No sclera icterus. Extraocular movements grossly intact. Moist buccal mucosa. Head is atraumatic, normocephalic. ABDOMEN: Soft. Mildly distended. Incision dressing has some areas of blood saturation NEUROLOGIC: Alert and oriented. Cranial nerves II through XII grossly intact. ASSESSMENT: 1. Acute appendicitis status post exploratory laparotomy and open appendectomy PLAN: -Continue clear liquid diet -Continue epidural -Continue Zofran as needed for nausea -Add simethicone drops for gas pains -Add IV Zosyn every 8 hours -Encourage patient to ambulate and to use incentive spirometer Physician Exhibits Curator note has been reviewed by physician. Signing provider agrees with the documented findings, assessment, and plan of care. Objective - Vital Signs Vital signs: Vital Signs Temp 98.0 F 10/04/20 08:00 Pulse 80 10/04/20 08:00 Resp 16 10/04/20 08:00 BP 123/73 10/04/20 08:00 Pulse Ox 96 10/04/20 08:00 Intake & Output 10/03/20 10/04/20 10/04/20 18:59 06:59 18:59 Intake Total 950 1108.3 Output Total 1865 Balance 950 -756.7 Intake: IV 950 1108.3 Output: Urine 1855 Estimated Blood Loss 10 Other: Voiding Method Indwelling Catheter Indwelling Catheter # Voids 1 - Labs CBC & Chem 7: 10/04/20 06:05 10/04/20 06:05 Labs: Abnormal Lab Results - Last 24 Hours (Table) 10/03/20 10/04/20 10/04/20 Range/Units 07:51 06:05 06:05 RBC 4.24 L (4.30-5.90) m/uL Lymphocytes # 0.6 L (1.0-4.8) k/uL Glucose 114 H (70-110) mg/dL Calcium 8.2 L (8.7-10.3) mg/dL Total Bilirubin 1.3 H (0.2-1.2) mg/dL Creatine Kinase 51 L (55-170) U/L Total Protein 5.6 L (6.2-8.2) g/dL
--- NOTE | 2020-10-04 12:05 | P.PN ---
Subjective Progress Note Date: 10/04/20 Patient is a pleasant 54-year-old male came in with complaints of right upper quadrant abdominal pain sharp in nature 10 chest in severity presently 8/10 in severity and radiating up of the right upper quadrant patient's abdominal pain started yesterday afternoon associated with nausea . Did have [address] of the abdomen is consistent with metastatic inflammation. Patient was a evaluated by general surgery, believes patient hasn't traveled hernia and patient will undergo expiratory laparotomy today. 10/04/2020 Patient is seen and evaluated in follow-up status post exploratory laparotomy with open appendectomy and is having some nausea and burping and currently denies passing any gas or having bowel movements. Patient is currently on clear liquids and tolerating. Patient does have some abdominal distention noted on exam. Patient remains on epidural pump and will continue at this time. Discussed with the patient along with nursing staff about increasing activity as tolerated and getting up and sitting in the chair. Patient currently on oxygen at 2 L via nasal cannula although no reports of shortness of breath noted. Will discuss with nursing staff about weaning FiO2 as tolerated. Continue with incentive spirometer use as well. IV Zosyn has been added. Review of systems: Constitutional: No reports of fatigue, fever, or chills Cardiovascular: No reports of chest pain or palpitations Respiratory: No reports of shortness of breath or cough GI: Reports some intermittent nausea, no reports of vomiting or diarrhea : No reports of dysuria or retention Neurovascular: No reports of weakness or numbness All medications have been reviewed Objective - Vital Signs Vital signs: Vital Signs Temp 98.0 F 10/04/20 08:00 Pulse 80 10/04/20 08:00 Resp 16 10/04/20 08:00 BP 123/73 10/04/20 08:00 Pulse Ox 96 10/04/20 08:00 Intake & Output 10/03/20 10/04/20 10/04/20 18:59 06:59 18:59 Intake Total 950 1108.3 Output Total 1865 Balance 950 -756.7 Intake: IV 950 1108.3 Output: Urine 1855 Estimated Blood Loss 10 Other: Voiding Method Indwelling Catheter # Voids 1 - Exam GENERAL: The patient is alert and oriented x3, not in any acute distress. Well developed, well nourished. HEENT: Pupils are round and equally reacting to light. EOMI. No scleral icterus. No conjunctival pallor. Normocephalic, atraumatic. No pharyngeal erythema. No thyromegaly. CARDIOVASCULAR: S1 and S2 present. No murmurs, rubs, or gallops. PULMONARY: Chest is clear to auscultation, no wheezing or crackles. ABDOMEN: Soft, tenderness in the right lower quadrant no rebound or rigidity, mildly distended, normoactive bowel sounds. No palpable organomegaly. MUSCULOSKELETAL: No joint swelling or deformity. EXTREMITIES: No cyanosis, clubbing, or pedal edema. NEUROLOGICAL: Gross neurological examination did not reveal any focal deficits. SKIN: No rashes. - Labs CBC & Chem 7: 10/04/20 06:05 10/04/20 06:05 Labs: Abnormal Lab Results - Last 24 Hours (Table) 10/03/20 10/04/20 10/04/20 Range/Units 07:51 06:05 06:05 RBC 4.24 L (4.30-5.90) m/uL Lymphocytes # 0.6 L (1.0-4.8) k/uL Glucose 114 H (70-110) mg/dL Calcium 8.2 L (8.7-10.3) mg/dL Total Bilirubin 1.3 H (0.2-1.2) mg/dL Creatine Kinase 51 L (55-170) U/L Total Protein 5.6 L (6.2-8.2) g/dL Assessment and Plan Assessment: -abdominal pain: Etiology is not clear possibly a ventral hernia, patient underwent exploratory laparotomy -Acute appendicitis Status post exploratory laparotomy with open appendectomy -History of atrial fibrillation presently sinus rhythm patient is status post ablation -DVT prophylaxis: Subcutaneous heparin -GI prophylaxis: Protonix Plan: Continue with current medications. IV antibiotics in the form of Zosyn has been added. Discussed with the patient about increasing activity as tolerated and sitting up in the chair today. Patient is belching with some intermittent nausea although no reports of gas or bowel movement noted today. Patient is currently on clear liquids and will continue at this time. Currently continues to be on an epidural pain pump. Wean FiO2 as tolerated. Will repeat a.m. labs. Further recommendations to follow.
[2020-10-04] MEDS: PANTOPRAZOLE 40 MG/10 ML VIAL IVP SCH (12:49)
[2020-10-04] MEDS: SIMETHICONE 40 MG/0.6 ML DROPS 2,000 MG/30 ML BOTTLE PO SCH ×3 (12:57→21:01)
[2020-10-04] MEDS: ROPIVACAINE 250 MG, HYDROMORPHONE (PF) 5 MG in SODIUM CHLORIDE 0.9% 200 ML EPIDURAL PRN (20:57)
[2020-10-05] MEDS: SODIUM CHLORIDE 0.9% 1,000 ML IV SCH ×4 (02:45→23:30)
[2020-10-05] MEDS: PANTOPRAZOLE 40 MG/10 ML VIAL IVP SCH (07:00)
[2020-10-05] MEDS: HEPARIN SODIUM,PORCINE 5,000 UNIT/ML 1 ML VIAL SQ SCH ×2 (07:00→20:56)
[2020-10-05] MEDS: PIPERACILLIN-TAZOBACTAM 3.375 GM in SODIUM CHLORIDE 0.9% 100 ML IVPB SCH ×3 (07:01→23:44)
[2020-10-05] MEDS: SIMETHICONE 40 MG/0.6 ML DROPS 2,000 MG/30 ML BOTTLE PO SCH ×4 (07:02→20:56)
[2020-10-05] MEDS ORDERED: HYDROmorphone 1 MG/ML 1 ML SYRINGE IVP PRN (09:50)
--- NOTE | 2020-10-05 11:36 | P.PN ---
Subjective Progress Note Date: 10/05/20 CHIEF COMPLAINT: Acute appendicitis HISTORY OF PRESENT ILLNESS: Status post exploratory laparotomy with open appendectomy for acute appendicitis. Postop day #2. Patient is rating his pain about a 5 out of 10 at the incision site. He is feeling more distended. More nauseous today. He is not passing gas his still had not had a bowel movement. He has epidural in place. Afebrile. WBC 8.2 currently on a full liquid diet PHYSICAL EXAM: VITAL SIGNS: Reviewed. GENERAL: Well-developed in no acute distress. HEENT: No sclera icterus. Extraocular movements grossly intact. Moist buccal mucosa. Head is atraumatic, normocephalic. ABDOMEN: Soft. distended. Incision site clean and intact. Some minimal blood in the middle of the incision noted NEUROLOGIC: Alert and oriented. Cranial nerves II through XII grossly intact. ASSESSMENT: 1. Acute appendicitis status post exploratory laparotomy and open appendectomy PLAN: -Continue full liquid diet -Continue epidural -Start Dilaudid to help with pain control -Continue Zofran as needed for nausea -Add simethicone drops for gas pains -Add IV Zosyn every 8 hours -Encourage patient to ambulate and to use incentive spirometer Physician Director Packaging note has been reviewed by physician. Signing provider agrees with the documented findings, assessment, and plan of care. Objective - Vital Signs Vital signs: Vital Signs Temp 98 F 10/05/20 07:36 Pulse 80 10/05/20 07:36 Resp 18 10/05/20 07:36 BP 137/79 10/05/20 07:36 Pulse Ox 92 L 10/05/20 07:36 Intake & Output 10/04/20 10/05/20 10/05/20 18:59 06:59 18:59 Intake Total 1364 Output Total 2400 Balance 1364 -2400 Intake: IV 1364 Piperacillin-Tazobactam 3 100 .375 gm In Sodium Chloride 0.9% 100 ml @ 25 mls/hr IVPB Q8HR [facility] Rx# :[id number] Ropivacaine 250 mg 64 Hydromorphone (Pf) 5 mg In Sodium Chloride 0.9% 200 ml @ Per Protocol EPIDURAL .Q0M PRN Rx#: [id number] Sodium Chloride 0.9% 1, 1200 000 ml @ 150 mls/hr IV . Q6H40M [facility] Rx#:[id number] Output: Urine 2400 Other: Voiding Method Indwelling Catheter Indwelling Catheter Indwelling Catheter # Bowel Movements 0 - Labs CBC & Chem 7: 10/04/20 06:05 10/04/20 06:05
[2020-10-05] MEDS ORDERED: KETOROLAC 15 MG/ML 1 ML VIAL IVP SCH (12:00)
--- NOTE | 2020-10-05 12:38 | P.PN ---
Subjective Progress Note Date: 10/05/20 Patient is a pleasant 54-year-old male came in with complaints of right upper quadrant abdominal pain sharp in nature 10 chest in severity presently 8/10 in severity and radiating up of the right upper quadrant patient's abdominal pain started yesterday afternoon associated with nausea . Did have [address] of the abdomen is consistent with metastatic inflammation. Patient was a evaluated by general surgery, believes patient hasn't traveled hernia and patient will undergo expiratory laparotomy today. 10/04/2020 Patient is seen and evaluated in follow-up status post exploratory laparotomy with open appendectomy and is having some nausea and burping and currently denies passing any gas or having bowel movements. Patient is currently on clear liquids and tolerating. Patient does have some abdominal distention noted on exam. Patient remains on epidural pump and will continue at this time. Discussed with the patient along with nursing staff about increasing activity as tolerated and getting up and sitting in the chair. Patient currently on oxygen at 2 L via nasal cannula although no reports of shortness of breath noted. Will discuss with nursing staff about weaning FiO2 as tolerated. Continue with incentive spirometer use as well. IV Zosyn has been added. 10/05/2020 Patient is seen this morning and continues to have some abdominal discomfort and bloating. Patient continues to be on epidural pain pump although discussing discontinuation to wean the patient off. Patient is agreeable with this. Patient was up and sitting in the chair yesterday. Patient does have incentive spirometer and will continue with this. Surgical dressing was changed this morning and appears to be dry and intact. Surgical site and fredy appear intact with no surrounding redness or swelling noted. Patient is maintained on IV antibiotics and will continue at this time. Patient denies any chest pain, shortness of breath, or palpitations. Agent is on room air and tolerating well. Patient denies any gas although continues to belch and have brief periods of nausea. Patient's diet has been advanced to full liquids and tolerating. No reports of bowel movements at this time. Review of systems: Constitutional: No reports of fatigue, fever, or chills Cardiovascular: No reports of chest pain or palpitations Respiratory: No reports of shortness of breath or cough GI: Reports some intermittent nausea, no reports of vomiting or diarrhea : No reports of dysuria or retention Neurovascular: No reports of weakness or numbness All medications have been reviewed Objective - Vital Signs Vital signs: Vital Signs Temp 98 F 10/05/20 07:36 Pulse 80 10/05/20 07:36 Resp 18 10/05/20 07:36 BP 137/79 10/05/20 07:36 Pulse Ox 92 L 10/05/20 07:36 Intake & Output 10/04/20 10/05/20 10/05/20 18:59 06:59 18:59 Intake Total 1364 Output Total 2400 Balance 1364 -2400 Intake: IV 1364 Piperacillin-Tazobactam 3 100 .375 gm In Sodium Chloride 0.9% 100 ml @ 25 mls/hr IVPB Q8HR [facility] Rx# :[id number] Ropivacaine 250 mg 64 Hydromorphone (Pf) 5 mg In Sodium Chloride 0.9% 200 ml @ Per Protocol EPIDURAL .Q0M PRN Rx#: [id number] Sodium Chloride 0.9% 1, 1200 000 ml @ 150 mls/hr IV . Q6H40M [facility] Rx#:[id number] Output: Urine 2400 Other: Voiding Method Indwelling Catheter Indwelling Catheter Indwelling Catheter # Bowel Movements 0 - Exam GENERAL: The patient is alert and oriented x3, not in any acute distress. Well developed, well nourished. HEENT: Pupils are round and equally reacting to light. EOMI. No scleral icterus. No conjunctival pallor. Normocephalic, atraumatic. No pharyngeal erythema. No thyromegaly. CARDIOVASCULAR: S1 and S2 present. No murmurs, rubs, or gallops. PULMONARY: Chest is clear to auscultation, no wheezing or crackles. ABDOMEN: Soft, tenderness in the right lower quadrant no rebound or rigidity, mildly distended, normoactive bowel sounds. No palpable organomegaly. Surgical dressing changed today with minimal drainage noted on the original. Midline fredy are intact with no redness or surrounding swelling noted. MUSCULOSKELETAL: No joint swelling or deformity. EXTREMITIES: No cyanosis, clubbing, or pedal edema. NEUROLOGICAL: Gross neurological examination did not reveal any focal deficits. SKIN: No rashes. - Labs CBC & Chem 7: 10/04/20 06:05 10/04/20 06:05 Assessment and Plan Assessment: -abdominal pain patient underwent exploratory laparotomy, slightly improved, valencia rggiovanni following -Acute appendicitis Status post exploratory laparotomy with open appendectomy, surgery following an patient is maintained on IV Zosyn -History of atrial fibrillation presently sinus rhythm patient is status post ablation -DVT prophylaxis: Subcutaneous heparin -GI prophylaxis: Protonix Plan: Continue with current medications. IV antibiotics in the form of Zosyn. Discussed with the patient about increasing activity as tolerated and sitting up in the chair today. Patient is belching with some intermittent nausea although no reports of gas or bowel movement noted again today. Patient is currently on full liquids and tolerating and will continue at this time. Slowly advance as tolerated. Currently continues to be on an epidural pain pump and will likely discontinue by the morning. Will repeat a.m. labs. Further recommendations to follow.
[2020-10-05] MEDS: METOCLOPRAMIDE 5 MG/ML 2 ML VIAL IVP SCH ×3 (13:09→23:44)
[2020-10-05] MEDS: ACETAMINOPHEN TAB 500 MG TAB PO SCH (22:16)
[2020-10-06] MEDS: ROPIVACAINE 250 MG, HYDROMORPHONE (PF) 5 MG in SODIUM CHLORIDE 0.9% 200 ML EPIDURAL PRN (01:07)
[2020-10-06] MEDS: METOCLOPRAMIDE 5 MG/ML 2 ML VIAL IVP SCH ×4 (05:25→23:03)
[2020-10-06] MEDS: ACETAMINOPHEN TAB 500 MG TAB PO SCH ×4 (05:26→23:04)
[2020-10-06] MEDS: SODIUM CHLORIDE 0.9% 1,000 ML IV SCH (05:47)
[2020-10-06 06:46] LABS: Basophils % (A) 0 %; Eosinophils # (A) 0.1 k/uL (0-0.7); Eosinophils % (A) 1 %; HCT 38.8 % (39.0-53.0); HGB 13.6 gm/dL (13.0-17.5); Lymphocytes # (A) 1.2 k/uL (1.0-4.8); Lymphocytes % (A) 11 %; MCH 33.4 pg (25.0-35.0); MCHC 35.2 g/dL (31.0-37.0); Mean Platelet Volume 7.5; Monocytes # (A) 0.8 k/uL (0-1.0); Monocytes % (A) 7 %; Neutrophils # (A) 9.2 k/uL (1.3-7.7); Neutrophils % (A) 81 %; Platelet Count 168 k/uL (150-450); RBC 4.08 m/uL (4.30-5.90); WBC 11.4 k/uL (3.8-10.6)
[2020-10-06] MEDS: PANTOPRAZOLE 40 MG/10 ML VIAL IVP SCH (08:18)
[2020-10-06] MEDS: PIPERACILLIN-TAZOBACTAM 3.375 GM in SODIUM CHLORIDE 0.9% 100 ML IVPB SCH ×3 (08:19→23:03)
[2020-10-06] MEDS: SIMETHICONE 40 MG/0.6 ML DROPS 2,000 MG/30 ML BOTTLE PO SCH ×4 (08:19→21:14)
[2020-10-06] MEDS: HEPARIN SODIUM,PORCINE 5,000 UNIT/ML 1 ML VIAL SQ SCH ×2 (08:19→21:15)
--- NOTE | 2020-10-06 08:46 | P.PN ---
Progress Note - Text Date: 10/06/2020 Time: 08:29 The patient is status post, exploratory laparotomy, postoperative day number 3 The patient has no complaints of nausea vomiting or headache. The patient does not complain of any lower extremity numbness or weakness. The epidural is running at 8 mL per hour. VAS 2-10. The patient received subcu heparin this a.m, therefore the epidural will be DC'd this afternoon. Pain meds will be provided to the patient by the service.
--- NOTE | 2020-10-06 10:29 | P.PN ---
Tomer ott is a pleasant 54-year-old male came in with complaints of right upper quadrant abdominal pain sharp in nature 10 chest in severity presently 8/10 in severity and radiating up of the right upper quadrant patient's abdominal pain started yesterday afternoon associated with nausea . Did have [address] of the abdomen is consistent with metastatic inflammation. Patient was a evaluated by general surgery, believes patient hasn't traveled hernia and patient will undergo expiratory laparotomy today. 10/04/2020 Patient is seen and evaluated in follow-up status post exploratory laparotomy with open appendectomy and is having some nausea and burping and currently denies passing any gas or having bowel movements. Patient is currently on clear liquids and tolerating. Patient does have some abdominal distention noted on e xam. Patient remains on epidural pump and will continue at this time. Discussed with the patient along with nursing staff about increasing activity as tolerated and getting up and sitting in the chair. Patient currently on oxygen at 2 L via nasal cannula although no reports of shortness of breath noted. Will discuss with nursing staff about weaning FiO2 as tolerated. Continue with incentive spirometer use as well. IV Zosyn has been added. 10/05/2020 Patient is seen this morning and continues to have some abdominal discomfort and bloating. Patient continues to be on epidural pain pump although discussing discontinuation to wean the patient off. Patient is agreeable with this. Patient was up and sitting in the chair yesterday. Patient does have incentive spirometer and will continue with this. Surgical dressing was changed this morning and appears to be dry and intact. Surgical site and fredy appear intact with no surrounding redness or swelling noted. Patient is maintained on IV antibiotics and will continue at this time. Patient denies any chest pain, shortness of breath, or palpitations. Agent is on room air and tolerating well. Patient denies any gas although continues to belch and have brief periods of nausea. Patient's diet has been advanced to full liquids and tolerating. No reports of bowel movements at this time. 10/06/2020 Patient is passing gas, patient still has epidural which probably will come out today. Patient is feeling much better abdominal pain is better controlled. Review of systems: Constitutional: No reports of fatigue, fever, or chills Cardiovascular: No reports of chest pain or palpitations Respiratory: No reports of shortness of breath or cough GI: Reports some intermittent nausea, no reports of vomiting or diarrhea : No reports of dysuria or retention Neurovascular: No reports of weakness or numbness All medications have been reviewed Objective - Vital Signs Vital signs: Vital Signs Temp 99.4 F 10/06/20 07:46 Pulse 82 10/06/20 07:46 Resp 18 10/06/20 07:46 BP 149/93 10/06/20 07:46 Pulse Ox 91 L 10/06/20 07:46 Intake & Output 10/05/20 10/06/20 10/06/20 18:59 06:59 18:59 Intake Total 325.333 Output Total 2100 4000 Balance -2100 -3674.667 Intake: Intake, IV Titration 225.333 Amount Ropivacaine 250 mg 225.333 Hydromorphone (Pf) 5 mg In Sodium Chloride 0.9% 200 ml @ Per Protocol EPIDURAL .Q0M PRN Rx#: [id number] Oral 100 Output: Urine 2100 4000 Uretheral (Brown) 2000 Other: Voiding Method Indwelling Catheter Indwelling Catheter # Voids 1 - Exam GENERAL: The patient is alert and oriented x3, not in any acute distress. Well developed, well nourished. HEENT: Pupils are round and equally reacting to light. EOMI. No scleral icterus. No conjunctival pallor. Normocephalic, atraumatic. No pharyngeal erythema. No thyromegaly. CARDIOVASCULAR: S1 and S2 present. No murmurs, rubs, or gallops. PULMONARY: Chest is clear to auscultation, no wheezing or crackles. ABDOMEN: Soft, tenderness in the right lower quadrant no rebound or rigidity, mildly distended, normoactive bowel sounds. No palpable organomegaly. Surgical site areas appear to be clean MUSCULOSKELETAL: No joint swelling or deformity. EXTREMITIES: No cyanosis, clubbing, or pedal edema. NEUROLOGICAL: Gross neurological examination did not reveal any focal deficits. SKIN: No rashes. - Labs CBC & Chem 7: 10/06/20 06:18 10/04/20 06:05 Labs: Abnormal Lab Results - Last 24 Hours (Table) 10/06/20 Range/Units 06:18 WBC 11.4 H (3.8-10.6) k/uL RBC 4.08 L (4.30-5.90) m/uL Hct 38.8 L (39.0-53.0) % Neutrophils # 9.2 H (1.3-7.7) k/uL Assessment and Plan Plan: -abdominal pain patient underwent exploratory laparotomy, slightly improved, surgery following -Acute appendicitis Status post exploratory laparotomy with open appendectomy, surgery following an patient is maintained on IV Zosyn -History of atrial fibrillation presently sinus rhythm patient is status post ablation -DVT prophylaxis: Subcutaneous heparin -GI prophylaxis: Protonix Plan: Continue with current medications. IV antibiotics in the form of Zosyn. Passing gas still has epidural which will come out no nausea and significant improved abdominal pain Patient is currently on full liquids and tolerating and will continue at this time. Slowly advance as tolerated.
[2020-10-06 10:55] LABS: Albumin/Globulin Ratio 2.22 (1.60-3.17); Anion Gap 7.1 mmol/L (4.00-12.00); Calcium 8.6 mg/dL (8.7-10.3); Carbon Dioxide 29.9 mmol/L (21.6-31.8); Globulin 1.8 g/dL (1.6-3.3); Non-African American GFR(CKD) 102.7 (60.0-200.0); Potassium 3.8 mmol/L (3.5-5.5); Total Bilirubin 2.3 mg/dL (0.2-1.2); Total Protein 5.8 g/dL (6.2-8.2)
--- NOTE | 2020-10-06 15:18 | P.PN ---
Subjective Progress Note Date: 10/06/20 CHIEF COMPLAINT: Appendicitis HISTORY OF PRESENT ILLNESS: The patient is a 54-year-old female status post open appendectomy, 10/03/20. She is POD 3. Overnight he had abdominal cramping that has improved. Patient is eager to go home. He just started passing flatus today. He notes incisional pain however tolerable. He is tolerating diet. No chills. He had low-grade temperature of 99, under 100F. He is ambulating. ROS: No reports of nausea and vomiting. No bowel movements. No productive sp utum. No chest pain. No shortness of breath. Passing flatus. PHYSICAL EXAM: VITAL SIGNS: Reviewed CONSTITUTIONAL: Well developed and in no acute distress. EYES: Conjuctivae without sclera icterus. Extraocular movements grossly intact. HEAD, EARS, NOSE, THROAT: Moist buccal mucosa. Head is atraumatic, normocephalic. Hears conversational speech. No nasal drainage. NECK: No thyroidomegaly. RESPIRATORY: Non-labored respirations and equal bilateral excursions. CARDIOVASCULAR: Palpable 2+ radial pulses. ABDOMEN: No peritonitis. Incision is intact. MUSCULOSKELETAL: No gross deformity of the lower extremities noted. No clubbing. No cyanosis. SKIN: Good skin turgor. Well perfused. NEUROLOGIC: Cranial nerves II through XII grossly intact. No focal or lateralizing signs. PSYCH: Appropriate affect. Alert and oriented to person, place and time. CLINICAL LABS: WBC elevated at 8.2-11.4. ASSESSMENT: 1. Appendicitis PLAN: 1. Will add Flagyl for elevated white count and low-grade fevers. 2. Increase diet to soft diet 3. CBC ordered for morning Objective - Vital Signs Vital signs: Vital Signs Temp 99.3 F 10/06/20 14:00 Pulse 98 10/06/20 14:00 Resp 16 10/06/20 14:00 BP 144/92 10/06/20 14:00 Pulse Ox 90 L 10/06/20 14:00 Intake & Output 10/05/20 10/06/20 10/06/20 18:59 06:59 18:59 Intake Total 325.333 Output Total 2100 4000 Balance -2100 -3674.667 Intake: Intake, IV Titration 225.333 Amount Ropivacaine 250 mg 225.333 Hydromorphone (Pf) 5 mg In Sodium Chloride 0.9% 200 ml @ Per Protocol EPIDURAL .Q0M PRN Rx#: [id number] Oral 100 Output: Urine 2100 4000 Uretheral (Brown) 2000 Other: Voiding Method Indwelling Catheter Indwelling Catheter Indwelling Catheter # Voids 1 - Labs CBC & Chem 7: 10/06/20 06:18 10/06/20 06:18 Labs: Abnormal Lab Results - Last 24 Hours (Table) 10/06/20 10/06/20 Range/Units 06:18 06:18 WBC 11.4 H (3.8-10.6) k/uL RBC 4.08 L (4.30-5.90) m/uL Hct 38.8 L (39.0-53.0) % Neutrophils # 9.2 H (1.3-7.7) k/uL BUN 8.0 L (9.0-27.0) mg/dL BUN/Creatinine Ratio 10.00 L (12.00-20.00) Ratio Calcium 8.6 L (8.7-10.3) mg/dL Total Bilirubin 2.3 H (0.2-1.2) mg/dL AST 38 H (14-35) U/L Total Protein 5.8 L (6.2-8.2) g/dL Assessment and Plan (1) Appendicitis Current Visit: Yes Status: Acute Code(s): K37 - UNSPECIFIED APPENDICITIS SNOMED Code(s): 85572548 (2) Leukocytosis Current Visit: Yes Status: Acute Code(s): D72.829 - ELEVATED WHITE BLOOD CELL COUNT, UNSPECIFIED SNOMED Code(s): 777186579
[2020-10-07] MEDS: ACETAMINOPHEN TAB 500 MG TAB PO SCH ×2 (05:21→13:04)
[2020-10-07] MEDS: METOCLOPRAMIDE 5 MG/ML 2 ML VIAL IVP SCH ×2 (05:22→13:04)
[2020-10-07] MEDS: PIPERACILLIN-TAZOBACTAM 3.375 GM in SODIUM CHLORIDE 0.9% 100 ML IVPB SCH ×2 (07:40→15:34)
[2020-10-07] MEDS: PANTOPRAZOLE 40 MG/10 ML VIAL IVP SCH (07:41)
[2020-10-07] MEDS: HEPARIN SODIUM,PORCINE 5,000 UNIT/ML 1 ML VIAL SQ SCH (07:41)
[2020-10-07] MEDS: SIMETHICONE 40 MG/0.6 ML DROPS 2,000 MG/30 ML BOTTLE PO SCH ×2 (07:41→14:22)
[2020-10-07 08:18] VITALS: PULSE 89
[2020-10-07 08:51] LABS: Basophils % (A) 0 %; Eosinophils # (A) 0.1 k/uL (0-0.7); Eosinophils % (A) 1 %; HCT 38.1 % (39.0-53.0); HGB 13.1 gm/dL (13.0-17.5); Lymphocytes % (A) 11 %; MCHC 34.5 g/dL (31.0-37.0); MCV 92.8 fL (80.0-100.0); Mean Platelet Volume 7.9; Monocytes # (A) 0.6 k/uL (0-1.0); Monocytes % (A) 6 %; Neutrophils # (A) 7.5 k/uL (1.3-7.7); Neutrophils % (A) 82 %; Platelet Count 179 k/uL (150-450); RDW 12.5 % (11.5-15.5); WBC 9.1 k/uL (3.8-10.6)
--- NOTE | 2020-10-07 10:11 | P.DS ---
Providers Date of admission: 10/03/20 14:15 Attending physician: Saulo Cardenas Consults: 10/02/20 22:10 Consult Physician Routine Consulting Provider: Marshall Cruz Consult Reason/Comments: Abd pain; abn CT Do you want consulting provider notified?: Yes Primary care physician: Duane Pennington [facility] Course: 54-year-old male came in with complaints of right upper quadrant abdominal pain sharp in nature 10 chest in severity presently 8/10 in severity and radiating up of the right upper quadrant patient's abdominal pain started yesterday afternoon associated with nausea . Did have [address] of the abdomen is consistent with metastatic inflammation. Patient was a evaluated by general surgery, believes patient hasn't traveled hernia and patient will undergo expiratory laparotomy today. 10/04/2020 Patient is seen and evaluated in follow-up status post exploratory laparotomy with open appendectomy and is having some nausea and burping and currently denies passing any gas or having bowel movements. Patient is currently on clear liquids and tolerating. Patient does have some abdominal distention noted on exam. Patient remains on epidural pump and will continue at this time. Discussed with the patient along with nursing staff about increasing activity as tolerated and getting up and sitting in the chair. Patient currently on oxygen at 2 L via nasal cannula although no reports of shortness of breath noted. Will discuss with nursing staff about weaning FiO2 as tolerated. Continue with incentive spirometer use as well. IV Zosyn has been added. 10/05/2020 Patient is seen this morning and continues to have some abdominal discomfort and bloating. Patient continues to be on epidural pain pump although discussing discontinuation to wean the patient off. Patient is agreeable with this. Patient was up and sitting in the chair yesterday. Patient does have incentive spirometer and will continue with this. Surgical dressing was changed this morning and appears to be dry and intact. Surgical site and fredy appear intact with no surrounding redness or swelling noted. Patient is maintained on IV antibiotics and will continue at this time. Patient denies any chest pain, shortness of breath, or palpitations. Agent is on room air and tolerating well. Patient denies any gas although continues to belch and have brief periods of nausea. Patient's diet has been advanced to full liquids and tolerating. No reports of bowel movements at this time. 10/06/2020 Patient is passing gas, patient still has epidural which probably will come out today. Patient is feeling much better abdominal pain is better controlled. 10/07/2020 Patient looks tired as he didn't get enough sleep last night and wishing to go home. Patient did move his bowel epidural is out does have good bowel sounds pain is well-controlled. Patient is complaining of some cough patient will need an incentive spirometer does have some atelectasis clinically patient was receiv ing antibiotics because of which are I do not believe patient has pneumonia. I'll leave the decision of continues to have antibiotics to general surgery pain management as per neurosurgery. PHYSICAL EXAMINATION: GENERAL: The patient is alert and oriented x3, not in any acute distress. Well developed, well nourished. HEENT: Pupils are round and equally reacting to light. EOMI. No scleral icterus. No conjunctival pallor. Normocephalic, atraumatic. No pharyngeal erythema. No thyromegaly. CARDIOVASCULAR: S1 and S2 present. No murmurs, rubs, or gallops. PULMONARY: Chest is clear to auscultation, no wheezing or crackles. ABDOMEN: Soft, nontender, nondistended, normoactive bowel sounds. No palpable organomegaly. Surgical sites look clean MUSCULOSKELETAL: No joint swelling or deformity. EXTREMITIES: No cyanosis, clubbing, or pedal edema. NEUROLOGICAL: Gross neurological examination did not reveal any focal deficits. SKIN: No rashes. Assessment and Plan Plan: -abdominal pain secondary to appendicitis acute patient underwent exploratory laparotomy, patient is found to have appendicitis patient underwent appendectomy presently on Zosyn probably can be discharged today. Vagina surgery antibiotics and made medications as per them -Acute appendicitis Status post exploratory laparotomy with open appendectomy, surgery following an patient is maintained on IV Zosyn -History of atrial fibrillation presently sinus rhythm patient is status post ablation Patient Condition at Discharge: Serious Plan - Discharge Summary Discharge Rx Participant: No New Discharge Prescriptions: Continue Tadalafil [Cialis] 5 mg PO DAILY tiZANidine HCL [Zanaflex] 4 mg PO HS PRN PRN Reason: neck spasm Discharge Medication List Tadalafil [Cialis] 5 mg PO DAILY 09/26/14 [History] tiZANidine HCL [Zanaflex] 4 mg PO HS PRN 10/02/20 [History] Follow up Appointment(s)/Referral(s): Isrrael Zepeda MD [Primary Care Provider] - 3 Days (Office closed at time of discharge please call ThursdayOctober 08 to set up a follow up appointment)
[2020-10-07 15:38] VITALS: BP 158/107; RESP 16; TEMP 99
--- NOTE | 2020-10-07 16:01 | P.PN ---
Subjective Progress Note Date: 10/07/20 CHIEF COMPLAINT: Appendicitis HISTORY OF PRESENT ILLNESS: The patient is a 54-year-old female status post open appendectomy, 10/03/20. Patient tolerated nonnarcotic pain regimen with ibuprofen Tylenol. He is passing flatus having bowel movements. He reports gassiness. ROS: No reports of nausea and vomiting. No bowel movements. No productive sputum. No chest pain. No shortness of breath. Passing flatus. PHYSICAL EXAM: VITAL SIGNS: Reviewed CONSTITUTIONAL: Well developed and in no acute distress. EYES: Conjuctivae without sclera icterus. Extraocular movements grossly intact. HEAD, EARS, NOSE, THROAT: Moist buccal mucosa. Head is atraumatic, normocephalic. Hears conversational speech. No nasal drainage. NECK: No thyroidomegaly. RESPIRATORY: Non-labored respirations and equal bilateral excursions. CARDIOVASCULAR: Palpable 2+ radial pulses. ABDOMEN: No peritonitis. Mild distention MUSCULOSKELETAL: No gross deformity of the lower extremities noted. No clubbing. No cyanosis. SKIN: Good skin turgor. Well perfused. NEUROLOGIC: Cranial nerves II through XII grossly intact. No focal or lateralizing signs. PSYCH: Appropriate affect. Alert and oriented to person, place and time. CLINICAL LABS: WBC elevated at 8.2-11.4, now 9.1 ASSESSMENT: 1. Appendicitis PLAN: 1. Discharge instructions including using Gas-X as needed described. 2. Continue with ibuprofen for home. 3. Follow up with Dr. Cruz 1 week. 4. Abdominal binder also described for pain management. 5. For acute appendicitis, Augmentin prescribed for 1 week Objective - Vital Signs Vital signs: Vital Signs Temp 99.0 F 10/07/20 14:00 Pulse 89 10/07/20 14:00 Resp 16 10/07/20 14:00 BP 158/107 10/07/20 14:00 Pulse Ox 94 L 10/07/20 14:00 Intake & Output 10/06/20 10/07/20 10/07/20 18:59 06:59 18:59 Output Total 2200 Balance -2200 Output: Urine 2200 Uretheral (Brown) 2200 Other: Voiding Method Indwelling Catheter Toilet # Voids 3 # Bowel Movements 0 - Labs CBC & Chem 7: 10/07/20 08:38 10/06/20 06:18 Labs: Abnormal Lab Results - Last 24 Hours (Table) 10/07/20 Range/Units 08:38 RBC 4.10 L (4.30-5.90) m/uL Hct 38.1 L (39.0-53.0) % Assessment and Plan (1) Appendicitis Status: Acute Code(s): K37 - UNSPECIFIED APPENDICITIS SNOMED Code(s): 75170447 (2) Leukocytosis Status: Acute Code(s): D72.829 - ELEVATED WHITE BLOOD CELL COUNT, UNSPECIFIED SNOMED Code(s): 344595256
== END 2020-10-07 16:44 | disposition home or self-care (01) | DRG 342 ==
LOC: EC 20:07 → 1SOBS 21:56 → OBSVTOIN 10-03 14:15 → 4SSUR 10-03 20:43
PROVIDERS: ADMIT Internal Medicine; ATTEND Internal Medicine
PROC: 0DTJ0ZZ Resection of Appendix, Open Approach (ICD-10-PCS; principal; 2020-10-03 11:40)
DX: K35.80 Unspecified acute appendicitis (principal); J98.11 Atelectasis; N40.0 Benign prostatic hyperplasia without lower urinary tract symptoms; I10 Essential (primary) hypertension; I48.91 Unspecified atrial fibrillation; Z98.890 Other specified postprocedural states
CPT/HCPCS: 36415; 74177; 80053; 81003; 82150; 82550; 83605; 83690; 85025; 85610; 85730; 88304; 94760; 96361; 96374; 96376; 99285

== ENCOUNTER → 2021-05-06 | Outpatient (CLI) | payer BC ==
[2021-05-06 15:54] LABS: African American GFR (CKD) 118.2 (60.0-200.0); Albumin 4.3 g/dL (3.80-4.90); Albumin/Globulin Ratio 2.05 (1.60-3.17); Anion Gap 6.2 mmol/L (4.00-12.00); Calcium 8.6 mg/dL (8.7-10.3); Carbon Dioxide 27.8 mmol/L (21.6-31.8); Chol/HDL Ratio 4.12; Globulin 2.1 g/dL (1.6-3.3); LDL Cholesterol,Calculated 125.8 mg/dL (0.0-131.0); Potassium 4.2 mmol/L (3.5-5.5); Total Bilirubin 1.1 mg/dL (0.3-1.2); Total Protein 6.4 g/dL (6.2-8.2); VLDL Calculation 30.2 mg/dL (5.00-40.00)
== END | disposition home or self-care (01) ==
LOC: LABWHC1 08:31
PROVIDERS: ATTEND Internal Medicine Clinical Cardiac Electrophysiology
DX: I48.0 Paroxysmal atrial fibrillation (principal); E78.5 Hyperlipidemia, unspecified
CPT/HCPCS: 36415; 80053; 80061; 84443

== ENCOUNTER → 2021-07-22 | Outpatient (CLI) | payer BC ==
[2021-07-22 12:42] LABS: African American GFR (CKD) >90 (>60 ml/min/1.73 sqM); Anion Gap 6 mmol/L; Blood Urea Nitrogen 11 mg/dL (9-20); Carbon Dioxide 28 mmol/L (22-30); Chloride 105 mmol/L (98-107); Non-African American GFR(CKD) >90 (>60 ml/min/1.73 sqM); Potassium 4.3 mmol/L (3.5-5.1); Sodium 139 mmol/L (137-145)
[2021-07-22 12:48] LABS: HCT 43.1 % (39.0-53.0); HGB 14.8 gm/dL (13.0-17.5); MCH 32.8 pg (25.0-35.0); MCHC 34.2 g/dL (31.0-37.0); MCV 96.1 fL (80.0-100.0); Mean Platelet Volume 7.7; Platelet Count 179 k/uL (150-450); RBC 4.49 m/uL (4.30-5.90); WBC 4.7 k/uL (3.8-10.6)
== END | disposition home or self-care (01) ==
LOC: LABPAT 10:56
PROVIDERS: ATTEND Internal Medicine
DX: Z01.812 Encounter for preprocedural laboratory examination (principal)
CPT/HCPCS: 36415; 80051; 82565; 84520; 85027

== ENCOUNTER 2021-07-23 07:31 | Inpatient (IN) | payer BC ==
[~2021-07-23 07:31] MED LIST: ALPRAZolam 0.25 MG TAB PO PRN; ALPRAZolam 0.5 MG TAB PO PRN; ASPIRIN 325 MG TAB PO STA; ATORVASTATIN 80 MG TAB PO STA; HEPARIN SODIUM,PORCINE 10,000 UNIT in SODIUM CHLORIDE 0.9% 1,000 ML IRRIGATION PRN; HEPARIN SODIUM,PORCINE 2,500 UNIT in SODIUM CHLORIDE 0.9% 250 ML IRRIGATION PRN; NITROGLYCERIN SL TABS 0.4 MG TAB SUBLINGUAL PRN
[2021-07-23] MEDS ORDERED: SODIUM CHLORIDE 0.9% 1,000 ML IV ONE (07:46)
[2021-07-23] MEDS ORDERED: LIDOCAINE 1% INJ 10MG/ML (20 ML MDV) ONE (08:57)
[2021-07-23] MEDS ORDERED: HEPARIN SODIUM 1,000 UN/ML (10ML VL) ONE (08:58)
[2021-07-23] MEDS ORDERED: VERAPAMIL 2.5 MG/ML 2 ML AMP ONE (08:58)
[2021-07-23] MEDS ORDERED: fentaNYL (PF) 50 MCG/ML 2 ML AMP ONE (08:58)
[2021-07-23] MEDS ORDERED: MIDAZOLAM 2 MG/2 ML VIAL IV ONE (09:10)
[2021-07-23] MEDS ORDERED: fentaNYL (PF) 50 MCG/ML 2 ML AMP IV ONE (09:10)
[2021-07-23] MEDS ORDERED: LIDOCAINE 1% INJ 10MG/ML (20 ML MDV) SQ ONE (09:10)
[2021-07-23] MEDS ORDERED: HEPARIN SODIUM 1,000 UN/ML (10ML VL) IV ONE (09:12)
[2021-07-23] MEDS ORDERED: IOPAMIDOL-370 125ML BTL INJ ONE (09:29)
[2021-07-23 11:46] LABS: ALT 19 U/L (4-49); AST 24 U/L (17-59); African American GFR (CKD) >90 (>60 ml/min/1.73 sqM); Albumin 3.9 g/dL (3.5-5.0); Alkaline Phosphatase 63 U/L (38-126); Anion Gap 5 mmol/L; Blood Urea Nitrogen 9 mg/dL (9-20); Calcium 9.1 mg/dL (8.4-10.2); Carbon Dioxide 29 mmol/L (22-30); Chloride 105 mmol/L (98-107); Glucose 102 mg/dL (74-99); Magnesium 2.2 mg/dL (1.6-2.3); Non-African American GFR(CKD) >90 (>60 ml/min/1.73 sqM); Potassium 4.2 mmol/L (3.5-5.1); Sodium 139 mmol/L (137-145); Total Protein 6.5 g/dL (6.3-8.2)
--- NOTE | 2021-07-23 12:02 | P.GSCN ---
History of Present Illness Consult date: 07/23/21 Reason for Consult: Coronary artery disease with left main disease Requesting physician: Brendan Luis History of present illness: This is a 55-year-old very active gentleman who follows on an outpatient basis with Dr. Zepeda for primary care and Dr. Burgos for cardiology. He has a previous medical history of paroxysmal atrial fibrillation status post ablation in 2012, hypertension, hyperlipidemia, appendicitis status post appendectomy in September 2020, 6 pack of beer per day EtOH use without history of withdrawal, never smoker, and family history of heart disease. Apparently over the last year or so the patient has been experiencing exertional dyspnea with mid sternal chest pressure which he attributed to getting older and being out of shape. He had a young friend who from massive heart attack, he was concerned and decided his symptoms should not be overlooked so he presented to [facility] for evaluation treatment. He had a stress test which was abnormal and he was recommended to undergo heart catheterization which was completed today and which demonstrated left main stenosis 70%, proximal LAD stenosis 90% with mid LAD stenosis 60%. Due to these findings consultation was placed to Dr. Malcolm from cardiothoracic surgery for revascularization recommendations. Review of Systems Review of systems was completed and was negative except as noted - Cardiovascular Reports as per HPI, Reports chest pain, Reports dyspnea on exertion Past Medical History Past Medical History: Atrial Fibrillation, Chest Pain / Angina, Prostate Disorder Additional Past Medical History / Comment(s): HX OF AFIB, NO LONGER ON MEDICATION, HX BLOOD IN STOOL, AND HEMMOHROIDS, appendicitis History of Any Multi-Drug Resistant Organisms: None Reported Past Surgical History: Appendectomy, Cardiac Ablation Additional Past Surgical History / Comment(s): ABLATION X2 Past Anesthesia/Blood Transfusion Reactions: No Reported Reaction Past Psychological History: No Psychological Hx Reported Smoking Status: Never smoker Past Alcohol Use History: Daily Additional Past Alcohol Use History / Comment(s): Drinks 6 beers daily Past Drug Use History: None Reported - Past Family History family Additional Family Medical History / Comment(s): rossy runs in the family Father Family Medical History: Cancer Additional Family Medical History / Comment(s): Bladder cancer; skin cancer; smoker Mother Family Medical History: Coronary Artery Disease (CAD) Medications and Allergies Home Medications Medication Instructions Recorded Confirmed Type Aspirin [Adult Low Dose Aspirin EC] 81 mg PO DAILY 07/22/21 07/23/21 History Metoprolol Succinate [Toprol XL] 25 mg PO DAILY 07/22/21 07/23/21 History Rosuvastatin [Crestor] 20 mg PO DAILY 07/22/21 07/23/21 History Allergies Allergy/AdvReac Type Severity Reaction Status Date / Time No Known Allergies Allergy Verified 07/22/21 11:40 Surgical - Exam Vital Signs Pulse Resp BP Pulse Ox 64 16 143/96 97 07/23/21 07:52 07/23/21 07:52 07/23/21 07:52 07/23/21 07:52 CONSTITUTIONAL: Awake and alert, appears comfortable, cooperative, well- developed, well-nourished, no pain, no acute distress EYES: Pupils equal, round, reactive to light, normal ocular movement ENT: Moist mucous membranes without oral lesions present NECK: No masses, no bruits, trachea midline RESPIRATORY: Lungs sounds clear to auscultation bilaterally. Respirations even, nonlabored. Currently on room air with oxygen saturation 96%. Strong cough. No chest wall deformities. No clubbing or cyanosis present CARDIOVASCULAR: S1, S2 present. Regular rate and rhythm, sinus rhythm on telemetry. Palpable peripheral pulses bilaterally. No edema present. No calf pain or tenderness noted. No significant lower extremity varicosities noted. Left radial Zane's test less than 8 seconds. GASTROINTESTINAL: Abdomen soft, nontender, nondistended without masses or organomegaly noted. There is no rebound or guarding present. Active bowel s ounds present 4 quadrants. GENITOURINARY: Deferred INTEGUMENTARY: Skin is warm and dry with evidence of good perfusion. NEUROLOGIC: Cranial nerves II through XII intact, normal coordination, no obvious motor or sensory deficits, speech is normal MUSKULOSKELETAL: Able to move all extremities, strength equal bilaterally, normal posture PSYCHIATRIC: Alert and oriented to person place and time, appropriate affect, intact judgment and insight Results - Labs 07/23/21 10:51 Abnormal Lab Results - Last 24 Hours (Table) 07/23/21 Range/Units 10:51 Glucose 102 H (74-99) mg/dL Diabetes panel 07/23/21 Range/Units 10:51 Sodium 139 (137-145) mmol/L Potassium 4.2 (3.5-5.1) mmol/L Chloride 105 (98-107) mmol/L Carbon Dioxide 29 (22-30) mmol/L BUN 9 (9-20) mg/dL Creatinine 0.68 (0.66-1.25) mg/dL Glucose 102 H (74-99) mg/dL Calcium 9.1 (8.4-10.2) mg/dL AST 24 (17-59) U/L ALT 19 (4-49) U/L Alkaline Phosphatase 63 (38-126) U/L Total Protein 6.5 (6.3-8.2) g/dL Albumin 3.9 (3.5-5.0) g/dL Calcium panel 07/23/21 Range/Units 10:51 Calcium 9.1 (8.4-10.2) mg/dL Albumin 3.9 (3.5-5.0) g/dL Pituitary panel 07/23/21 Range/Units 10:51 Sodium 139 (137-145) mmol/L Potassium 4.2 (3.5-5.1) mmol/L Chloride 105 (98-107) mmol/L Carbon Dioxide 29 (22-30) mmol/L BUN 9 (9-20) mg/dL Creatinine 0.68 (0.66-1.25) mg/dL Glucose 102 H (74-99) mg/dL Calcium 9.1 (8.4-10.2) mg/dL Adrenal panel 07/23/21 Range/Units 10:51 Sodium 139 (137-145) mmol/L Potassium 4.2 (3.5-5.1) mmol/L Chloride 105 (98-107) mmol/L Carbon Dioxide 29 (22-30) mmol/L BUN 9 (9-20) mg/dL Creatinine 0.68 (0.66-1.25) mg/dL Glucose 102 H (74-99) mg/dL Calcium 9.1 (8.4-10.2) mg/dL Total Bilirubin 1.0 (0.2-1.3) mg/dL AST 24 (17-59) U/L ALT 19 (4-49) U/L Alkaline Phosphatase 63 (38-126) U/L Total Protein 6.5 (6.3-8.2) g/dL Albumin 3.9 (3.5-5.0) g/dL - Imaging Additional studies: Heart catheterization results reviewed Assessment and Plan Assessment: 1. Coronary artery disease with left main disease 2. History of paroxysmal atrial fibrillation status post ablation in 2012 3. Hypertension 4. Hyperlipidemia, untreated, cholesterol 206, LDL 125, triglyceride 154 5. Appendicitis status post appendectomy in September 2020 6. 6 pack of beer per day EtOH use without history of withdrawal 7. Never smoker 8. Family history of heart disease Plan: The patient was seen and examined at the bedside. Chart/diagnostics reviewed. The case will be discussed with Dr. Malcolm. The usual perioperative course of coronary artery bypass surgery was discussed in detail with the patient and his , risks and benefits were reviewed, all questions were answered. Preoperative testing initiated. Once completed we will calculate STS risk score and discuss with the patient and his . Recommend continuing aspirin, statin, beta shabnam therapy. Follow-up appointment made with Dr. Gold arango 15 @ 11 AM to discuss testing results and plan for surgery. More recommendations to follow. Thank you Dr. Luis for this consult. We look forward to working with you in the care of your patient. Time with Patient: Greater than 30
--- NOTE | 2021-07-23 12:19 | XR ---
EXAMINATION TYPE: XR chest 2V DATE OF EXAM: 07/23/2021 COMPARISON: NONE HISTORY: Preop cardiac surgery TECHNIQUE: Frontal and lateral views of the chest are obtained. FINDINGS: There is no focal air space opacity, pleural effusion, or pneumothorax seen. There are ove rlying artifacts. The cardiac silhouette size is within normal limits. The osseous structures are i ntact. IMPRESSION: No acute cardiopulmonary process.
[2021-07-23 13:47] LABS: Appearance,Urine Clear (Clear); Bilirubin,Urine Negative (Negative); Blood,Urine Negative (Negative); Color,Urine Light Yellow; Glucose,Urine (UA) Negative (Negative); Ketones,Urine Negative (Negative); Leukocyte Esterase,Urine Negative (Negative); Nitrite,Urine Negative (Negative); Protein,Urine Negative (Negative); Specific Gravity,Urine 1.017 (1.001-1.035); Urobilinogen,Urine <2.0 mg/dL (<2.0)
--- NOTE | 2021-07-23 14:27 | US ---
EXAMINATION TYPE: US carotid duplex BILAT DATE OF EXAM: 07/23/2021 COMPARISON: NONE CLINICAL HISTORY: preop cardiac surgery. EXAM MEASUREMENTS: RIGHT: Peak Systolic Velocity (PSV) cm/sec ----- Right CCA: 112.3 ----- Right ICA: 89.4 ----- Right ECA: 87.4 ICA/CCA ratio: 0.8 RIGHT: End Diastole cm/sec ----- Right CCA: 19.3 ----- Right ICA: 32.9 ----- Right ECA: 8.6 LEFT: Peak Systolic Velocity (PSV) cm/sec ----- Left CCA: 102.7 ----- Left ICA: 89.5 ----- Left ECA: 69.2 ICA/CCA ratio: 0.9 LEFT: End Diastole cm/sec ----- Left CCA: 17.8 ----- Left ICA: 29.3 ----- Left ECA: 0.0 VERTEBRALS (direction of flow): Right Vertebral: Antegrade Left Vertebral: Antegrade Rhythm: Normal Grayscale, color Doppler, spectral Doppler imaging performed of the carotid arteries. Waveform analys is does not show significant stenosis of the internal carotid arteries. No elevated velocities, minim al atherosclerotic changes. IMPRESSION: No hemodynamic significant stenosis of the proximal internal carotid arteries by Doppler criteria, indirect measurement of carotid stenosis Criteria for Assigning % of Stenosis / Diameter reduction (Estimation based on the indirect measurements of the internal carotid artery velocities (ICA PSV). 1. Normal (no stenosis)=ICA PSV < 125 cm/s: ratio < 2.0: ICA EDV<40 cm/s. 2. Less than 50% stenosis=ICA PSV < 125 cm/s: ratio < 2.0: ICA EDV<40 cm/s. 3. 50 to 69% stenosis=ICA PSV of 125 to 230 cm/s: ration 2.0 ? 4.0: ICA EDV 40-100 cm/s. 4. Greater than 70% stenosis to near occlusion= ICA PSV > 230 cm/s: ratio > 4.0: ICA EDV > 100 cm/s. 5. Near occlusion= ICA PSV velocities may be low or undetectable: variable ratio and ICA EDV. 6. Total occlusion=unable to detect flow.
[2021-07-23] MEDS ORDERED: LORazepam 2 MG/ML INJ IV PRN ×3 (16:55)
[2021-07-23] MEDS: SODIUM CHLORIDE 0.9% 1,000 ML in EMPTY BAG 1 BAG IV SCH ×2 (17:02→17:03)
[2021-07-23] MEDS: THIAMINE 100 MG TAB PO SCH (17:15)
[2021-07-23] MEDS: MULTIVITAMINS, THERA 1 EACH TAB PO SCH (17:15)
--- NOTE | 2021-07-23 18:27 | P.CARDCATH ---
Description of Procedure: PROCEDURES PERFORMED: Left heart catheterization, bilateral coronary angiography INDICATION: Abnormal stress test, angina HISTORY: Patient is a pleasant 55-year-old male with family history of coronary artery disease who has been experiencing chest pain with approximately 3-4 minutes of physical activity for the last approximately year. He therefore underwent workup with stress test with reproduction of chest pain and was set up for heart catheterization. CONSENT:I have discussed the risks, benefits and alternative therapies for the above-mentioned procedure and for both sedation/analgesia as well as necessary blood product administration, if indicated, as they pertain to this patient. The patient has indicated understanding and acceptance of the risks and procedures discussed. PROCEDURE: After the risks, benefits and alternatives of the above mentioned procedure explained in detail with the patient, informed consent was obtained. Patient was taken to the catheterization lab and prepped and draped in usual fashion. 1% lidocaine was used to anesthetize the right radial artery. A 6- Anguillan sheath was placed in the right radial artery using modified Seldinger technique. Left coronary angiography was performed with a 5-Anguillan JL 3.5 catheter and right coronary angiography was performed with a 5-Anguillan JR5 cat heter in various views. A 5-Anguillan FR5 catheter was inserted into the left ventricle and pressure measurements were obtained. The right radial sheath was removed and a TR band was placed with hemostasis achieved. The patient tolerated the procedure well. Patient was transported back to the post catheterization holding area in stable condition. Conscious Sedation: Patient was monitored under the direct supervision of vision of myself for conscious sedation using Versed and fentanyl for a total duration of 12 minutes HEMODYNAMICS: Ao: 134/76 LV: 136/4, LVEDP 20mmHg SELECTIVE CORONARY ARTERIOGRAPHY: LEFT MAIN: The left main is a large caliber vessel which trifurcates into the LAD, ramus and circumflex. There is a distal LAD 70% stenosis involving the trifurcation. LEFT ANTERIOR DESCENDING CORONARY ARTERY: LAD is a large caliber vessel which wraps around to the apex. There is an ostial 90% LAD stenosis and otherwise mild luminal irregularities. RAMUS INTERMEDIUS: The ramus is a moderate caliber vessel without significant stenosis. LEFT CIRCUMFLEX CORONARY ARTERY: Left circumflex is a moderate caliber vessel without significant stenosis. RIGHT CORONARY ARTERY: The right coronary artery is a large caliber vessel which gives off a PDA and PLV branch and is the dominant vessel. There are mild luminal irregularities. FINAL IMPRESSION: 1. CAD as described above with distal left main 70% stenosis and proximal LAD 90% stenosis and otherwise mild luminal irregularities. 2. Elevated left sided filling pressures PLAN: 1. Aggressive risk factor modification per most recent ACC/AHA guidelines. 2. Given involvement of left main involving trifurcation, we will have cardiothoracic surgery evaluate patient for possible CABG.
[2021-07-23] MEDS: METOPROLOL TARTRATE 12.5 MG TAB PO SCH (21:24)
--- NOTE | 2021-07-23 22:40 | US ---
EXAMINATION TYPE: US duplex aorta DATE OF EXAM: 07/23/2021 COMPARISON: CT 10/02/2020 CLINICAL HISTORY: rule out aneurysm. Grandfather has aortic dissection. No abdominal pain EXAM MEASUREMENTS: Abdominal Aorta: Proximal: 2.1 x 2.2 x 1.9 cm Mid: 1.9 x 2.1 x 1.6 cm Distal: 2.1 x 2.2 x 1.8 cm Bifurcation: RT: 1.1 x 1.0 cm LT: 0.9 x 1.1 cm No sonographic evidence for AAA IMPRESSION: Normal exam. No evidence of abdominal aortic aneurysm or dissection.
[2021-07-24 03:27] LABS: Chol/HDL Ratio 4.21 Ratio; VLDL Calculation 9.62 mg/dL (5.00-40.00)
[2021-07-24] MEDS: THIAMINE 100 MG TAB PO SCH ×2 (06:17→17:51)
[2021-07-24] MEDS ORDERED: ACETAMINOPHEN TAB 325 MG TAB PO PRN (07:48)
[2021-07-24 08:09] LABS: HCT 43.6 % (39.0-53.0); HGB 14.8 gm/dL (13.0-17.5); MCH 32.6 pg (25.0-35.0); MCHC 33.9 g/dL (31.0-37.0); MCV 95.9 fL (80.0-100.0); Mean Platelet Volume 7.5; Platelet Count 191 k/uL (150-450); RBC 4.55 m/uL (4.30-5.90); RDW 12.1 % (11.5-15.5); WBC 5.6 k/uL (3.8-10.6)
[2021-07-24] MEDS: HEPARIN SODIUM,PORCINE/PF 5,000 UNIT/0.5 ML SYRINGE SQ SCH ×3 (08:29→23:25)
[2021-07-24] MEDS: METOPROLOL TARTRATE 12.5 MG TAB PO SCH ×2 (08:29→20:24)
[2021-07-24] MEDS: ATORVASTATIN 80 MG TAB PO SCH (08:29)
[2021-07-24] MEDS: ASPIRIN 325 MG TAB PO SCH (08:29)
[2021-07-24] MEDS: MULTIVITAMINS, THERA 1 EACH TAB PO SCH (08:29)
[2021-07-24] MEDS: MUPIROCIN 2% OINT 22 GM TUBE NASAL SCH ×2 (08:31→20:24)
[2021-07-24] MEDS: PANTOPRAZOLE 40 MG TABLET PO SCH (08:31)
[2021-07-24 08:37] LABS: African American GFR (CKD) >90 (>60 ml/min/1.73 sqM); Anion Gap 6 mmol/L; Blood Urea Nitrogen 11 mg/dL (9-20); Carbon Dioxide 22 mmol/L (22-30); Chloride 108 mmol/L (98-107); Glucose 105 mg/dL (74-99); Non-African American GFR(CKD) >90 (>60 ml/min/1.73 sqM); Potassium 4.1 mmol/L (3.5-5.1); Sodium 136 mmol/L (137-145)
--- NOTE | 2021-07-24 09:46 | P.PN ---
Subjective Progress Note Date: 07/24/21 Principal diagnosis: Coronary artery disease with left main disease. Previous medical history of paroxysmal atrial fibrillation status post ablation in 2012, hypertension, hyperlipidemia, appendicitis status post appendectomy in September 2020, daily EtOH use without history of withdrawal, never smoker, and family history of heart disease on his mother's side and son having Marfan's The patient was seen and examined this morning on the cardiac stepdown unit sitting up in bed in no acute distress. Denies any chest pain or shortness of breath. Discussed plan for surgery on Thursday, patient verbalizes understanding and agreement. Patient has been ambulatory in the room without any difficulty. Preoperative testing has been completed, no major red flags. No new concerns. Objective - Vital Signs Vital signs: Vital Signs Temp 98.0 F 07/24/21 04:00 Pulse 59 L 07/24/21 04:00 Resp 18 07/24/21 04:00 BP 130/76 07/24/21 04:00 Pulse Ox 99 07/24/21 04:00 Intake & Output 07/23/21 07/24/21 07/24/21 18:59 06:59 18:59 Intake Total 1298 10 240 Balance 1298 10 240 Weight 100.7 kg 64.3 kg Intake: IV 700 10 Invasive Line 2 10 Intake, IV Titration 0 Amount Sodium Chloride 0.9% 1, 0 000 ml @ 0 mls/hr IV .[employer] ONE Rx#:[id number] Oral 598 240 Other: # Voids 1 3 - Exam CONSTITUTIONAL: Appears comfortable, cooperative, no acute distress RESPIRATORY: Lungs sounds clear bilaterally. Respirations even, nonlabored. Currently on room air with oxygen saturation 99%. Able to achieve 4000 mL on incentive spirometry. Strong cough. CARDIOVASCULAR: S1, S2 present. Regular rate and rhythm, sinus rhythm on telemetry. Palpable peripheral pulses bilaterally. No edema present. No calf pain or tenderness noted. GASTROINTESTINAL: Abdomen soft, nontender, nondistended. Active bowel sounds present 4 quadrants. Tolerating diet. GENITOURINARY: Continues to void INTEGUMENTARY: Skin is warm and dry with evidence of good perfusion. Right radial heart catheterization site without redness or drainage NEUROLOGIC: Cranial nerves II through XII intact MUSKULOSKELETAL: Able to move all extremities, strength equal bilaterally, gait normal PSYCHIATRIC: Alert and oriented to person place and time, appropriate affect, intact judgment and insight - Allied health notes Allied health notes reviewed: nursing - Labs CBC & Chem 7: 07/24/21 07:32 07/24/21 07:30 Labs: Abnormal Lab Results - Last 24 Hours (Table) 07/23/21 07/24/21 Range/Units 10:51 07:30 Sodium 136 L (137-145) mmol/L Chloride 108 H (98-107) mmol/L Glucose 102 H 105 H (74-99) mg/dL Cholesterol 219.00 H (0.00-200.00) mg/dL Microbiology - Last 24 Hours (Table) 07/23/21 18:25 Nasal Screen MRSA/MSSA - Preliminary Nasal Swab - Imaging and Cardiology Chest x-ray: report reviewed, image reviewed CT scan - abdomen: report reviewed, image reviewed Heart catheterization and transthoracic echocardiogram films reviewed yesterday with Dr. Malcolm Assessment and Plan Assessment: 1. Coronary artery disease with left main disease 2. History of paroxysmal atrial fibrillation status post ablation in 2012 3. Hypertension 4. Hyperlipidemia, treated, cholesterol 219, LDL 125 5. Appendicitis status post appendectomy in September 2020 6. 6 pack of beer per day EtOH use without history of withdrawal 7. Never smoker, preoperative FEV1 89% of predicted 8. Family history of heart disease, including son with Marfan's Plan: 1. Continue aspirin, statin, beta shabnam therapy 2. Increase activity, ambulate as tolerated. 5 m walk test performed, 2.40, 2.65, 2.29 seconds 3. Encourage continued incentive spirometry use 4. Our plan is for myocardial revascularization with bilateral internal mammary artery usage, exclusion of the left atrial appendage on 07/26/[address] Malcolm 5. GI/DVT prophylaxis 6. CIWA protocol 7. Medical management of other comorbidities per primary care, cardiology 8. Will consult pulmonology, internal medicine service 9. STS risk calculated, mortality risk less than 1% 10. More recommendations to follow Time with Patient: Greater than 30
[2021-07-24 12:28] LABS: Hepatitis A Antibody IgM Nonreactive (Nonreactive); Hepatitis B Core IgM Nonreactive (Nonreactive); Hepatitis B Surface Antigen Nonreactive (Nonreactive); Hepatitis C IgG Antibody Nonreactive (Nonreactive)
--- NOTE | 2021-07-24 13:07 | P.PN ---
Subjective Progress Note Date: 07/24/21 HISTORY OF PRESENT ILLNESS: This is a 55-year-old male, patient of Dr. Burgos, who underwent cardiac catheterization yesterday with Dr. Luis revealing coronary artery disease with distal left main 70% stenosis and proximal LAD 90% stenosis. Patient was evaluated by cardiothoracic surgery and patient is tentatively scheduled for surgery on Thursday. Patient denies chest pain or pressure. He denies shortness of breath. Vital signs are stable. Blood pressure 130/79. Heart rate in the 60s. Telemetry reveals sinus mechanism. He is afebrile. He is on room air with oxygen saturations greater than 92%. PHYSICAL EXAM: VITAL SIGNS: Reviewed. GENERAL: Well-developed in no acute distress. NECK: Supple. No JVD or thyromegaly LUNGS: Respirations even and unlabored. Lungs essentially clear to auscultation bilaterally. HEART: Regular rate and rhythm. S1 and S2 heard. EXTREMITIES: Normal range of motion. No clubbing or cyanosis. Peripheral pulses intact. No lower extremity edema. Right radial cath site with pulse present ASSESSMENT: Coronary artery disease with left main disease History of paroxysmal atrial fibrillation with previous ablation Hyperlipidemia Hypertension Daily alcohol use Family history of coronary artery disease PLAN: Continue current cardiac medications Patient is tentatively scheduled for CABG on Thursday Further recommendations pending patient's course Nurse practitioner note has been reviewed by physician. Signing provider agrees with the documented findings, assessment, and plan of care. Objective - Vital Signs Vital signs: Vital Signs Temp 98.3 F 07/24/21 08:00 Pulse 62 07/24/21 08:00 Resp 18 07/24/21 08:00 BP 130/79 07/24/21 08:00 Pulse Ox 94 L 07/24/21 08:00 Intake & Output 07/23/21 07/24/21 07/24/21 18:59 06:59 18:59 Intake Total 1298 10 840 Balance 1298 10 840 Weight 100.7 kg 64.3 kg Intake: IV 700 10 Invasive Line 2 10 Intake, IV Titration 0 Amount Sodium Chloride 0.9% 1, 0 000 ml @ 0 mls/hr IV .[facility] ONE Rx#:[id number] Oral 598 840 Other: # Voids 1 3 1 - Labs CBC & Chem 7: 07/24/21 07:32 07/24/21 07:30 Labs: Abnormal Lab Results - Last 24 Hours (Table) 07/23/21 07/24/21 Range/Units 10:51 07:30 Sodium 136 L (137-145) mmol/L Chloride 108 H (98-107) mmol/L Glucose 105 H (74-99) mg/dL Cholesterol 219.00 H (0.00-200.00) mg/dL Microbiology - Last 24 Hours (Table) 07/23/21 18:25 Nasal Screen MRSA/MSSA - Preliminary Nasal Swab
--- NOTE | 2021-07-24 14:02 | P.CNPUL ---
History of Present Illness Consult date: 07/24/21 Requesting physician: Basilio Horton Reason for consult: other (Post CABG ICU/ventilator management) Chief complaint: Exertional shortness of breath, chest tightness History of present illness: This is a very pleasant 55-year-old male patient who follows with Dr. Zepeda as his primary care provider. He has a history of hypertension, hyperlipidemia, paroxysmal atrial fibrillation with previous ablation approximately 8 years ago. He does drink about 6 beers daily. He is a lifelong nonsmoker. FEV1 value 89% of predicted. He had been having issues with exertional shortness of breath and chest tightness. He had cardiology workup and stress testing revealed evidence of ischemia. He was brought in yesterday for an elective cardiac catheterization and was found to have 70% distal left main stenosis and a 90% proximal LAD stenosis is being considered for coronary artery bypass surgery. Presently, he is resting quite comfortably in bed. Awake and alert in no acute distress. Denies any chest pain, shortness of breath, cough or congestion. Maintaining good O2 saturation in the 90s on room air. Chest x-ray reveals no acute cardiopulmonary process. Carotid Dopplers revealed no significant carotid stenosis. White count 5.6. Hemoglobin 14.8. Clear liquids 191. Sodium 136. Potassium 4.1. Creatinine 0.70. Glucose 105. He's been initiated on aspirin, statin, beta blockers. Review of Systems REVIEW OF SYSTEMS: CONSTITUTIONAL: Denies any recent significant weight loss or weight gain. EYES: Denies change in vision. EARS, NOSE, MOUTH, THROAT: Denies headaches, denies sore throat. CARDIOVASCULAR: Denies chest pain, palpitations or syncopal episodes. RESPIRATORY: Exertional chest tightness and shortness of breath, no cough, congestion or hemoptysis. GASTROINTESTINAL: Denies change in appetite, denies abdominal pain GENITOURINARY: Denies hematuria, denies infections. MUSKULOSKELETAL: Denies pain, denies swelling. INTEGUMENTARY: Denies rash, denies eczema. NEUROLOGICAL: Denies recent memory loss, no recent seizure activity. PSYCHIATRIC: Denies anxiety, denies depression. HEMATOLOGIC/LYMPHATIC: Denies anemia, denies enlarged lymph nodes. Past Medical History Past Medical History: Atrial Fibrillation, Chest Pain / Angina, Prostate Disorder Additional Past Medical History / Comment(s): HX OF AFIB, NO LONGER ON MEDICATION, HX BLOOD IN STOOL AND HEMMOHROIDS, appendicitis History of Any Multi-Drug Resistant Organisms: None Reported Past Surgical History: Appendectomy, Cardiac Ablation Additional Past Surgical History / Comment(s): ABLATION X2 Past Anesthesia/Blood Transfusion Reactions: No Reported Reaction Smoking Status: Never smoker - Past Family History Father Family Medical History: Cancer Additional Family Medical History / Comment(s): Bladder cancer; skin cancer; smoker Mother Family Medical History: Coronary Artery Disease (CAD) family Additional Family Medical History / Comment(s): rossy runs in the family Medications and Allergies Home Medications Medication Instructions Recorded Confirmed Type Aspirin [Adult Low Dose Aspirin EC] 81 mg PO DAILY 07/22/21 07/23/21 History Metoprolol Succinate [Toprol XL] 25 mg PO DAILY 07/22/21 07/23/21 History Rosuvastatin [Crestor] 20 mg PO DAILY 07/22/21 07/23/21 History Allergies Allergy/AdvReac Type Severity Reaction Status Date / Time No Known Allergies Allergy Verified 07/22/21 11:40 Physical Exam Vitals: Vital Signs Temp Pulse Pulse Resp BP BP Pulse Ox 07/24/21 08:00 98.3 F 62 18 130/79 94 L 07/24/21 04:00 98.0 F 59 L 18 130/76 99 07/24/21 00:00 97.8 F 62 18 122/73 98 07/23/21 20:00 97.8 F 60 18 135/85 98 07/23/21 16:06 98.2 F 62 20 122/83 98 07/23/21 15:17 68 16 132/93 99 Intake and Output 07/23/21 07/24/21 07/24/21 22:59 06:59 14:59 Intake Total 128 840 Balance 128 840 Intake: IV 10 Invasive Line 2 10 Oral 118 840 Other: # Voids 3 1 Weight 100.7 kg 64.3 kg GENERAL EXAM: Alert, very pleasant 55-year-old gentleman, on room air, comfortable in no apparent distress. HEAD: Normocephalic. EYES: Normal reaction of pupils, equal size. NOSE: Clear with pink turbinates. THROAT: No erythema or exudates. NECK: No masses, no JVD. CHEST: No chest wall deformity. LUNGS: Equal air entry with no crackles, wheeze, rhonchi or dullness. CVS: S1 and S2 normal with no audible murmur, regular rhythm. ABDOMEN: No hepatosplenomegaly, normal bowel sounds, no guarding or rigidity. SPINE: No scoliosis or deformity SKIN: No rashes CENTRAL NERVOUS SYSTEM: No focal deficits, tone is normal in all 4 extremities. EXTREMITIES: There is no peripheral edema. No clubbing, no cyanosis. Peripheral pulses are intact. Results - Laboratory Findings CBC and BMP: 07/24/21 07:32 07/24/21 07:30 Abnormal lab findings: Abnormal Labs 07/23/21 07/24/21 10:51 07:30 Sodium 136 L Chloride 108 H Glucose 102 H 105 H Cholesterol 219.00 H - Diagnostic Findings Chest x-ray: image reviewed Assessment and Plan Assessment: 1 Exertional dyspnea and chest tightness and a patient found to have significant coronary artery disease including 70% stenosis of the distal left main and 90% stenosis of the proximal LAD 2 Hyperlipidemia 3 Hypertension 4 Lifelong nonsmoker, FEV1 89% of predicted 5 Daily alcohol use 6 History of proximal atrial fibrillation status post ablation in 2012 Plan: The patient was seen and evaluated by Dr. Rolle Chest x-ray, labs, FEV1 value reviewed Educated regarding the use of the incentive spirometer and cough and deep breathing exercises Plan is for possible surgery on 07/26/2021 We will continue to follow and make further recommendations based on his clinical status I, the cosigning physician, performed a history & physical examination of the patient. Lungs sounds are clear. Maintaining good O2 saturations in the 90s on room air. I discussed the assessment and plan of care with my nurse practitioner, Laura Null. I attest to the above consultation as dictated by her. Time with Patient: Greater than 30
--- NOTE | 2021-07-24 20:11 | P.CONS ---
History of Present Illness - History of Present Illness This is a pleasant 55 years old male with past medical history of paroxysmal atrial fibrillation status post ablation, hypertension, hyperlipidemia. Alcohol abuse. Patient had cardiac cath yesterday with Dr. Luis showed significant coronary artery disease with 70% stenosis of the left main artery and 90% of the LAD. Patient admitted and evaluated by cardiothoracic surgery for bypass procedure this coming Thursday 07/26. Patient currently lying in bed comfortable, he says he has mild chest discomfort and dyspnea. No other complaints. No abdominal pain. No diarrhea. No dysuria. No fever. Vitals are stable. Labs are unremarkable including CBC, BMP, liver enzymes and INR. Patient drink 6 years per day and he is already on [facility] protocol maintained Review of Systems CONSTITUTIONAL: No fever, no malaise, no fatigue. HEENT: No recent visual problems or hearing problems. Denied any sore throat. CARDIOVASCULAR: No orthopnea, PND, no palpitations, no syncope. PULMONARY: No shortness of breath, no cough, no hemoptysis. GASTROINTESTINAL: No diarrhea, no nausea, no vomiting, no abdominal pain. Normoactive bowel sounds. NEUROLOGICAL: No headaches, no weakness, no numbness. HEMATOLOGICAL: Denies any bleeding or petechiae. GENITOURINARY: Denies any burning micturition, frequency, or urgency. MUSCULOSKELETAL/RHEUMATOLOGICAL: Denies any joint pain, swelling, or any muscle pain. ENDOCRINE: Denies any polyuria or polydipsia. Past Medical History Past Medical History: Atrial Fibrillation, Chest Pain / Angina, Prostate Disorder Additional Past Medical History / Comment(s): HX OF AFIB, NO LONGER ON MEDICATION, HX BLOOD IN STOOL AND HEMMOHROIDS, appendicitis History of Any Multi-Drug Resistant Organisms: None Reported Past Surgical History: Appendectomy, Cardiac Ablation Additional Past Surgical History / Comment(s): ABLATION X2 Past Anesthesia/Blood Transfusion Reactions: No Reported Reaction Smoking Status: Never smoker - Past Family History Father Family Medical History: Cancer Additional Family Medical History / Comment(s): Bladder cancer; skin cancer; smoker Mother Family Medical History: Coronary Artery Disease (CAD) family Additional Family Medical History / Comment(s): alexbarbara runs in the family Medications and Allergies Home Medications Medication Instructions Recorded Confirmed Type Aspirin [Adult Low Dose Aspirin EC] 81 mg PO DAILY 07/22/21 07/23/21 History Metoprolol Succinate [Toprol XL] 25 mg PO DAILY 07/22/21 07/23/21 History Rosuvastatin [Crestor] 20 mg PO DAILY 07/22/21 07/23/21 History Allergies Allergy/AdvReac Type Severity Reaction Status Date / Time No Known Allergies Allergy Verified 07/22/21 11:40 Physical Exam Vitals: Vital Signs Temp Pulse Pulse Resp BP BP Pulse Ox 07/24/21 08:00 98.3 F 62 18 130/79 94 L 07/24/21 04:00 98.0 F 59 L 18 130/76 99 07/24/21 00:00 97.8 F 62 18 122/73 98 07/23/21 20:00 97.8 F 60 18 135/85 98 07/23/21 16:06 98.2 F 62 20 122/83 98 07/23/21 15:17 68 16 132/93 99 Intake and Output 07/23/21 07/24/21 07/24/21 22:59 06:59 14:59 Intake Total 128 840 Balance 128 840 Intake: IV 10 Invasive Line 2 10 Oral 118 840 Other: # Voids 3 1 Weight 100.7 kg 64.3 kg GENERAL: The patient is alert and oriented x3, not in any acute distress. Well developed, well nourished. HEENT: Pupils are round and equally reacting to light. EOMI. No scleral icterus. No conjunctival pallor. Normocephalic, atraumatic. No pharyngeal erythema. No thyromegaly. CARDIOVASCULAR: S1 and S2 present. No murmurs, rubs, or gallops. PULMONARY: Chest is clear to auscultation, no wheezing or crackles. ABDOMEN: Soft, nontender, nondistended, normoactive bowel sounds. No palpable organomegaly. MUSCULOSKELETAL: No joint swelling or deformity. EXTREMITIES: No cyanosis, clubbing, or pedal edema. NEUROLOGICAL: Gross neurological examination did not reveal any focal deficits. SKIN: No rashes. No petechiae Results CBC & Chem 7: 07/24/21 07:32 07/24/21 07:30 Labs: Abnormal Lab Results - Last 24 Hours (Table) 07/23/21 07/24/21 Range/Units 10:51 07:30 Sodium 136 L (137-145) mmol/L Chloride 108 H (98-107) mmol/L Glucose 105 H (74-99) mg/dL Cholesterol 219.00 H (0.00-200.00) mg/dL Microbiology - Last 24 Hours (Table) 07/23/21 18:25 Nasal Screen MRSA/MSSA - Preliminary Nasal Swab Assessment and Plan Assessment: coronary artery disease with stenosis of left main artery 70%, and LAD 90%, scheduled for bypass surgery on 07/26 Paroxysmal atrial fibrillation status post ablation, not on anticoagulation Hypertension Hyperlipidemia Plan: This is a pleasant 55 years old male with significant coronary artery disease scheduled for bypass on Thursday 07/26 Continue with aspirin Continue with CIWA protocol and a mean Several consultants on the case including cardiology and cardiothoracic surgery and pulmonary Labs and medication were reviewed.. Continue same treatment. Continue with symptomatic treatment. Resume home medication. Monitor lytes and vitals. DVT and GI prophylaxis. Further recommendationsas per clinical course of the patient DVT prophylaxis: Subcutaneous heparin Lovenox GI Prophylaxis: Ppi Prognosis is guarded
[2021-07-24] MEDS: SODIUM CHLORIDE 0.9% 1,000 ML in EMPTY BAG 1 BAG IV SCH ×3 (20:18→22:24)
[2021-07-25] MEDS: PANTOPRAZOLE 40 MG TABLET PO SCH (06:13)
[2021-07-25] MEDS: THIAMINE 100 MG TAB PO SCH ×2 (06:13→17:38)
[2021-07-25 07:26] LABS: HCT 42.5 % (39.0-53.0); HGB 14.4 gm/dL (13.0-17.5); MCH 32.5 pg (25.0-35.0); MCV 95.5 fL (80.0-100.0); Mean Platelet Volume 7.6; Platelet Count 182 k/uL (150-450); RBC 4.45 m/uL (4.30-5.90); RDW 11.9 % (11.5-15.5); WBC 5.2 k/uL (3.8-10.6)
[2021-07-25 07:55] LABS: African American GFR (CKD) >90 (>60 ml/min/1.73 sqM); Anion Gap 6 mmol/L; Blood Urea Nitrogen 13 mg/dL (9-20); Calcium 8.9 mg/dL (8.4-10.2); Carbon Dioxide 25 mmol/L (22-30); Chloride 106 mmol/L (98-107); Glucose 97 mg/dL (74-99); Non-African American GFR(CKD) >90 (>60 ml/min/1.73 sqM); Sodium 137 mmol/L (137-145)
[2021-07-25] MEDS: SODIUM CHLORIDE 0.9% 1,000 ML in EMPTY BAG 1 BAG IV SCH ×2 (08:15→17:38)
[2021-07-25] MEDS: ATORVASTATIN 80 MG TAB PO SCH (08:52)
[2021-07-25] MEDS: METOPROLOL TARTRATE 12.5 MG TAB PO SCH ×2 (08:52→20:49)
[2021-07-25] MEDS: HEPARIN SODIUM,PORCINE/PF 5,000 UNIT/0.5 ML SYRINGE SQ SCH ×3 (08:52→23:06)
[2021-07-25] MEDS: MUPIROCIN 2% OINT 22 GM TUBE NASAL SCH ×2 (08:52→20:49)
[2021-07-25] MEDS: ASPIRIN 325 MG TAB PO SCH (08:52)
[2021-07-25] MEDS: MULTIVITAMINS, THERA 1 EACH TAB PO SCH (08:52)
--- NOTE | 2021-07-25 09:30 | P.PN ---
Subjective Progress Note Date: 07/25/21 Principal diagnosis: Coronary artery disease with left main disease. Previous medical history of paroxysmal atrial fibrillation status post ablation in 2012, hypertension, hyperlipidemia, appendicitis status post appendectomy in September 2020, daily EtOH use without history of withdrawal, never smoker, and family history of heart disease on his mother's side and son having Marfan's The patient was seen and examined this morning on the cardiac stepdown unit sitting up in bed in no acute distress eating breakfast. Denies any chest pain or shortness of breath currently. Discussed plan for surgery on Thursday, patient verbalizes understanding and agreement, he had a lot of questions this morning which were answered accordingly. Patient has been ambulatory without any dif ficulty. No new concerns. Objective - Vital Signs Vital signs: Vital Signs Temp 98 F 07/25/21 08:00 Pulse 66 07/25/21 08:00 Resp 16 07/25/21 08:00 BP 123/77 07/25/21 08:00 Pulse Ox 98 07/25/21 08:00 Intake & Output 07/24/21 07/25/21 07/25/21 18:59 06:59 18:59 Intake Total 1557 180 Balance 1557 180 Weight 65.2 kg Intake: Oral 1557 180 Other: # Voids 1 1 - Exam CONSTITUTIONAL: Appears comfortable, cooperative, no acute distress RESPIRATORY: Lungs sounds clear bilaterally. Respirations even, nonlabored. Currently on room air with oxygen saturation 98%. Able to achieve 4000 mL on incentive spirometry. Strong cough. CARDIOVASCULAR: S1, S2 present. Regular rate and rhythm, sinus rhythm on telemetry. Palpable peripheral pulses bilaterally. No edema present. No calf pain or tenderness noted. GASTROINTESTINAL: Abdomen soft, nontender, nondistended. Active bowel sounds present 4 quadrants. Tolerating diet. GENITOURINARY: Continues to void INTEGUMENTARY: Skin is warm and dry with evidence of good perfusion. Right radial heart catheterization site without redness or drainage NEUROLOGIC: Cranial nerves II through XII intact MUSKULOSKELETAL: Able to move all extremities, strength equal bilaterally, gait normal PSYCHIATRIC: Alert and oriented to person place and time, appropriate affect, intact judgment and insight - Allied health notes Allied health notes reviewed: nursing - Labs CBC & Chem 7: 07/25/21 06:30 07/25/21 06:30 Labs: Abnormal Lab Results - Last 24 Hours (Table) 07/25/21 Range/Units 06:30 Crossmatch See Detail Assessment and Plan Assessment: 1. Coronary artery disease with left main disease 2. History of paroxysmal atrial fibrillation status post ablation in 2012 3. Hypertension 4. Hyperlipidemia, treated, cholesterol 219, LDL 125 5. Appendicitis status post appendectomy in September 2020 6. 6 pack of beer per day EtOH use without history of withdrawal 7. Never smoker, preoperative FEV1 89% of predicted 8. Family history of heart disease, including son with Marfan's Plan: 1. Continue aspirin, statin, beta shabnam therapy 2. Increase activity, ambulate as tolerated. 3. Encourage continued incentive spirometry use 4. Our plan is for myocardial revascularization with bilateral internal mammary artery usage, exclusion of the left atrial appendage on 07/26/[address] Malcolm. NPO after midnight 5. GI/DVT prophylaxis 6. CIWA protocol 7. Medical management of other comorbidities per primary care, cardiology 8. More recommendations to follow Time with Patient: Greater than 30
--- NOTE | 2021-07-25 11:29 | P.PN ---
Subjective This is a 55-year-old male, patient of Dr. Burgos, who underwent cardiac catheterization 07/23/[address] Luis revealing coronary artery disease with distal left main 70% stenosis and proximal LAD 90% stenosis. Patient was evaluated by cardiothoracic surgery and patient is tentatively scheduled for surgery on Thursday. Patient denies chest pain or pressure. He denies shortness of breath. Vital signs are stable. Blood pressure 123/77, heart rate 66, afebrile, maintaining oxygen saturations on room air. He's currently maintained on aspirin 325 mg daily, atorvastatin 80 mg daily, metoprolol titrate 0.5 mg twice a day PHYSICAL EXAM: VITAL SIGNS: Reviewed. GENERAL: Well-developed in no acute distress. NECK: Supple. No JVD or thyromegaly LUNGS: Respirations even and unlabored. Lungs essentially clear to auscultation bilaterally. HEART: Regular rate and rhythm. S1 and S2 heard. EXTREMITIES: Normal range of motion. No clubbing or cyanosis. Peripheral pulses intact. No lower extremity edema. Right radial cath site with pulse present ASSESSMENT: Coronary artery disease with left main disease History of paroxysmal atrial fibrillation with previous ablation 2013 Hyperlipidemia Hypertension Daily alcohol use Family history of coronary artery disease PLAN: Continue current cardiac medications Patient is tentatively scheduled for CABG on Thursday Further recommendations pending patient's course Nurse practitioner note has been reviewed by physician. Signing provider agrees with the documented findings, assessment, and plan of care. Objective - Vital Signs Vital signs: Vital Signs Temp 98 F 07/25/21 08:00 Pulse 66 07/25/21 08:00 Resp 16 07/25/21 08:00 BP 123/77 07/25/21 08:00 Pulse Ox 98 07/25/21 08:00 Intake & Output 07/24/21 07/25/21 07/25/21 18:59 06:59 18:59 Intake Total 1557 180 Balance 1557 180 Weight 65.2 kg Intake: Oral 1557 180 Other: # Voids 1 1 - Labs CBC & Chem 7: 07/25/21 06:30 07/25/21 06:30 Labs: Abnormal Lab Results - Last 24 Hours (Table) 07/25/21 Range/Units 06:30 Crossmatch See Detail
--- NOTE | 2021-07-25 12:44 | ECHOF ---
Referral Reason:preop cardiac surgery MEASUREMENTS -------- HEIGHT: 196.8 cm WEIGHT: 100.7 kg BP: 136/85 RVIDd: 3.6 cm (< 3.3) IVSd: 1.2 cm (0.6 - 1.1) LVIDd: 4.9 cm (3.9 - 5.3) LVPWd: 1.1 cm (0.6 - 1.1) IVSs: 1.7 cm LVIDs: 3.2 cm LVPWs: 1.9 cm LA Diam: 4.0 cm (2.7 - 3.8) LAESV Index (A-L): 32.06 ml/m Ao Diam: 3.4 cm (2.0 - 3.7) AV Cusp: 2.3 cm (1.5 - 2.6) MV EXCURSION: 11.820 mm (> 18.000) MV EF SLOPE: 93 mm/s (70 - 150) EPSS: 0.6 cm MV E Josh: 0.88 m/s MV DecT: 185 ms MV A Josh: 0.53 m/s MV E/A Ratio: 1.64 RAP: 5.00 mmHg RVSP: 25.27 mmHg FINDINGS -------- Sinus rhythm. This was a technically good study. The left ventricular size is normal. There is borderline concentric left ventricular hypertrophy. Overall left ventricular systolic function is normal with, an EF between 60 - 65 %. The right ventricle is mildly enlarged. LA is midly dilated 29-33ml/m2. The right atrium is normal in size. Interatrial and interventricular septum intact. The aortic valve is trileaflet, and appears structurally normal. No aortic stenosis or regurgitation. The mitral valve is normal. Mild tricuspid regurgitation present. Right ventricular systolic pressure is normal at < 35 mmHg. Trace/mild (physiologic) pulmonic regurgitation. The aortic root size is normal. Normal inferior vena cava with normal inspiratory collapse consistent with estimated right atrial pre ssure of 5 mmHg. There is no pericardial effusion. CONCLUSIONS -------- 1. The left ventricular size is normal. 2. There is borderline concentric left ventricular hypertrophy. 3. Overall left ventricular systolic function is normal with, an EF between 60 - 65 %. 4. The right ventricle is mildly enlarged. 5. LA is midly dilated 29-33ml/m2. 6. The aortic valve is trileaflet, and appears structurally normal. No aortic stenosis or regurgitati on. 7. Mild tricuspid regurgitation present. 8. Trace/mild (physiologic) pulmonic regurgitation. 9. There is no pericardial effusion. THERMODYNAMICS PROFESSOR: GREG Zaman
--- NOTE | 2021-07-25 14:23 | P.PN ---
Subjective This is a pleasant 55 years old male with past medical history of paroxysmal atrial fibrillation status post ablation, hypertension, hyperlipidemia. Alcohol abuse. Patient had cardiac cath yesterday with Dr. Luis showed significant coronary artery disease with 70% stenosis of the left main artery and 90% of the LAD. Patient admitted and evaluated by cardiothoracic surgery for bypass procedure this coming Thursday 07/26. Patient currently lying in bed comfortable, he says he has mild chest discomfort and dyspnea. No other complaints. No abdominal pain. No diarrhea. No dysuria. No fever. Vitals are stable. Labs are unremarkable including CBC, BMP, liver enzymes and INR. Patient drink 6 years per day and he is already on CIWA protocol maintained 07/25/2021 patient Is sitting up in bed comfortably. No chest pain or dyspnea. No other complaints Labs and vitals are stable Continue with aspirin, metoprolol, CIWA protocol, no signs of local withdrawal Patient is going for bypass surgery tomorrow Objective - Vital Signs Vital signs: Vital Signs Temp 97.6 F 07/25/21 12:00 Pulse 60 07/25/21 12:00 Resp 16 07/25/21 12:00 BP 130/86 07/25/21 12:00 Pulse Ox 95 07/25/21 12:00 Intake & Output 07/24/21 07/25/21 07/25/21 18:59 06:59 18:59 Intake Total 1557 360 Balance 1557 360 Weight 65.2 kg Intake: Oral 1557 360 Other: # Voids 1 1 1 - Exam GENERAL: The patient is alert and oriented x3, not in any acute distress. Well developed, well nourished. HEENT: Pupils are round and equally reacting to light. EOMI. No scleral icterus. No conjunctival pallor. Normocephalic, atraumatic. No pharyngeal erythema. No thyromegaly. CARDIOVASCULAR: S1 and S2 present. No murmurs, rubs, or gallops. PULMONARY: Chest is clear to auscultation, no wheezing or crackles. ABDOMEN: Soft, nontender, nondistended, normoactive bowel sounds. No palpable organomegaly. MUSCULOSKELETAL: No joint swelling or deformity. EXTREMITIES: No cyanosis, clubbing, or pedal edema. NEUROLOGICAL: Gross neurological examination did not reveal any focal deficits. SKIN: No rashes. no petechiae. - Labs CBC & Chem 7: 07/25/21 06:30 07/25/21 06:30 Labs: Abnormal Lab Results - Last 24 Hours (Table) 07/25/21 Range/Units 06:30 Crossmatch See Detail Microbiology - Last 24 Hours (Table) 07/23/21 18:25 Nasal Screen MRSA/MSSA - Final Nasal Swab Staphylococcus aureus,Not MRSA Assessment and Plan Assessment: coronary artery disease with stenosis of left main artery 70%, and LAD 90%, scheduled for bypass surgery on 07/26 Paroxysmal atrial fibrillation status post ablation, not on anticoagulation Hypertension Hyperlipidemia Plan: This is a pleasant 55 years old male with significant coronary artery disease s cheduled for bypass on Thursday 07/26 Continue with aspirin Continue with CIWA protocol and a mean Several consultants on the case including cardiology and cardiothoracic surgery and pulmonary Labs and medication were reviewed.. Continue same treatment. Continue with symptomatic treatment. Resume home medication. Monitor lytes and vitals. DVT and GI prophylaxis. Further recommendationsas per clinical course of the patient DVT prophylaxis: Subcutaneous heparin Lovenox GI Prophylaxis: Ppi Prognosis is guarded
--- NOTE | 2021-07-25 14:25 | P.PN ---
Subjective Progress Note Date: 07/25/21 Principal diagnosis: Coronary artery disease with 70% stenosis of distal left main and 90% stenosis of proximal LAD This is a very pleasant 55-year-old male patient who follows with Dr. Zepeda as his primary care provider. He has a history of hypertension, hyperlipidemia, paroxysmal atrial fibrillation with previous ablation approximately 8 years ago. He does drink about 6 beers daily. He is a lifelong nonsmoker. FEV1 value 89% of predicted. He had been having issues with exertional shortness of breath and chest tightness. He had cardiology workup and stress testing revealed evidence of ischemia. He was brought in yesterday for an elective cardiac catheterization and was found to have 70% distal left main stenosis and a 90% proximal LAD stenosis is being considered for coronary artery bypass surgery. Presently, he is resting quite comfortably in bed. Awake and alert in no acute distress. Denies any chest pain, shortness of breath, cough or congestion. Maintaining good O2 saturation in the 90s on room air. Chest x-ray reveals no acute cardiopulmonary process. Carotid Dopplers revealed no significant carotid stenosis. White count 5.6. Hemoglobin 14.8. Clear liquids 191. Sodium 136. Potassium 4.1. Creatinine 0.70. Glucose 105. He's been initiated on aspirin, statin, beta blockers. Reevaluated today on 07/25/2021, patient is scheduled to undergo myocardial revascularization tomorrow, pulmonary-maddox, the patient is doing great, no cough no wheezing no shortness of breath, patient is doing excellent with incentive spirometry, his FEV1 baseline is 89%, and we have cleared him yesterday for surgery which is scheduled tomorrow. Chest x-ray a few days ago showed no acute cardiopulmonary process. Objective - Vital Signs Vital signs: Vital Signs Temp 97.6 F 07/25/21 12:00 Pulse 60 07/25/21 12:00 Resp 16 07/25/21 12:00 BP 130/86 07/25/21 12:00 Pulse Ox 95 07/25/21 12:00 Intake & Output 07/24/21 07/25/21 07/25/21 18:59 06:59 18:59 Intake Total 1557 360 Balance 1557 360 Weight 65.2 kg Intake: Oral 1557 360 Other: # Voids 1 1 1 - Exam Physical Exam revealed a 55-year-old white male in no distress Head: Atraumatic, normocephalic. HEENT:[Neck is supple.] [No neck masses.] [No thyromegaly.] [No JVD.] Chest: [Clear throughout, no crackles, no rhonchi, no wheezes.] Cardiac Exam: [Normal S1 and S2, no S3 gallop, no murmur.] Abdomen: [Soft, nontender, no megaly, no rebound, no guarding, normal bowel sounds.] Extremities: [No clubbing, no edema, no cyanosis.] Neurological Exam: [No focal neurologic deficit.] Psychiatric: Normal mood, affect and normal mental status examination. Skin: No rashes. - Labs CBC & Chem 7: 07/25/21 06:30 07/25/21 06:30 Labs: Abnormal Lab Results - Last 24 Hours (Table) 07/25/21 Range/Units 06:30 Crossmatch See Detail Microbiology - Last 24 Hours (Table) 07/23/21 18:25 Nasal Screen MRSA/MSSA - Final Nasal Swab Staphylococcus aureus,Not MRSA Assessment and Plan Assessment: 1 Exertional dyspnea and chest tightness and a patient found to have significant coronary artery disease including 70% stenosis of the distal left main and 90% stenosis of the proximal LAD 2 Hyperlipidemia 3 Hypertension 4 Lifelong nonsmoker, FEV1 89% of predicted 5 Daily alcohol use 6 History of proximal atrial fibrillation status post ablation in 2012 Recommendation: Continue incentive spirometry Will see the patient again post surgery tomorrow. Patient is considered relatively low operative risk We continue to follow Time with Patient: Less than 30
[2021-07-26] MEDS ORDERED: HEPARIN SODIUM 1,000 UN/ML (10ML VL) IV ONE (05:00)
[2021-07-26] MEDS ORDERED: NITROGLYCERIN-D5W PMX 50 MG in DEXTROSE/WATER 1 250ML.BAG IV SCH (05:00)
[2021-07-26] MEDS ORDERED: DILTIAZEM 125 MG in SODIUM CHLORIDE 0.9% 100 ML IV SCH (05:00)
[2021-07-26] MEDS ORDERED: TRANEXAMIC ACID 2,000 MG in SODIUM CHLORIDE 0.9% 80 ML IV ONE (05:00)
[2021-07-26] MEDS ORDERED: PROTAMINE SULFATE 250 MG in EMPTY BAG 1 BAG IV ONE (05:00)
[2021-07-26] MEDS ORDERED: PAPAVERINE 360 MG in SODIUM CHLORIDE 0.9% 90 ML IV ONE (05:00)
[2021-07-26] MEDS ORDERED: METOPROLOL TARTRATE 12.5 MG TAB PO ONE (05:00)
[2021-07-26] MEDS ORDERED: CHLORHEXIDINE GLUCONATE 15 ML CUP MUCOUS MEM ONE (05:00)
[2021-07-26] MEDS ORDERED: CLEVIDIPINE BUTYRATE 25 MG in EMPTY BAG 1 BAG IV SCH ×2 (05:00→14:00)
[2021-07-26] MEDS ORDERED: PHENYLEPHRINE 10 MG/ML VIAL IV ONE (05:00)
[2021-07-26] MEDS ORDERED: ceFAZolin 1,000 MG in SODIUM CHLORIDE 0.9% IRRIGATIO 1,000 ML IRRIGATION ONE (05:00)
[2021-07-26] MEDS ORDERED: ELECTROLYTE-A SOLUTION 1,000 ML with POTASSIUM CHLORIDE 40 MEQ, MAGNESIUM SULFATE 16 ME... IV SCH ×5 (05:00)
[2021-07-26] MEDS ORDERED: CALCIUM CHLORIDE 100 MG/ML 10 ML SYRINGE IVP ONE (05:00)
[2021-07-26] MEDS ORDERED: ALBUMIN HUMAN 25% 50 ML in EMPTY BAG 1 BAG IVPB ONE (05:00)
[2021-07-26] MEDS ORDERED: HEPARIN SODIUM,PORCINE 5,000 UNIT in SODIUM CHLORIDE 0.9% 500 ML 500 ML IV ONE (05:00)
[2021-07-26] MEDS ORDERED: ATORVASTATIN 10 MG TAB PO ONE (05:00)
[2021-07-26] MEDS ORDERED: ALBUMIN HUMAN 5% 500 ML in EMPTY BAG 1 BAG IVPB ONE ×6 (05:00)
[2021-07-26] MEDS ORDERED: PROTAMINE SULFATE 10 MG/ML 25 ML VIAL IV ONE ×2 (05:00→08:00)
[2021-07-26] MEDS ORDERED: NITROGLYCERIN-D5W PMX 25 MG/250 ML BTL IV ONE (05:00)
[2021-07-26] MEDS ORDERED: MANNITOL 25% 12.5 GM/50 ML VIAL IV ONE ×2 (05:00)
[2021-07-26] MEDS ORDERED: NOREPINEPHRINE 4 MG in SODIUM CHLORIDE 0.9% 250 ML IV SCH (05:00)
[2021-07-26] MEDS ORDERED: MAGNESIUM SULFATE SYG 4.06 MEQ/ML SYRINGE IV ONE (05:00)
[2021-07-26] MEDS ORDERED: ASPIRIN 325 MG TAB PO ONE (05:00)
[2021-07-26] MEDS ORDERED: LACTATED RINGERS 1,000 ML IV SCH (05:00)
[2021-07-26] MEDS ORDERED: SODIUM BICARB 8.4% 50 ML SYR (1 MEQ/ML) IV ONE (05:00)
[2021-07-26] MEDS ORDERED: ELECTROLYTE-A SOLUTION 1,000 ML with POTASSIUM CHLORIDE 100 MEQ, MAGNESIUM SULFATE 16 M... IV SCH ×5 (05:00)
[2021-07-26] MEDS ORDERED: PHENYLEPHRINE 40 MG in SODIUM CHLORIDE 0.9% 250 ML IV ONE (05:00)
[2021-07-26] MEDS ORDERED: INSULIN REGULAR 100 UNIT in SODIUM CHLORIDE 0.9% 100 ML IV SCH ×2 (05:00→14:00)
[2021-07-26] MEDS: MULTIVITAMINS, THERA 1 EACH TAB PO SCH (05:23)
[2021-07-26] MEDS: THIAMINE 100 MG TAB PO SCH ×2 (05:41→17:31)
[2021-07-26] MEDS: PANTOPRAZOLE 40 MG TABLET PO SCH (05:41)
[2021-07-26 06:51] LABS: HCT 42.6 % (39.0-53.0); HGB 14.6 gm/dL (13.0-17.5); MCH 32.6 pg (25.0-35.0); MCHC 34.4 g/dL (31.0-37.0); Mean Platelet Volume 7.4; Platelet Count 179 k/uL (150-450); RBC 4.49 m/uL (4.30-5.90); RDW 11.9 % (11.5-15.5); WBC 5.7 k/uL (3.8-10.6)
[2021-07-26 07:13] LABS: Chloride 108 mmol/L (98-107)
[2021-07-26 07:15] LABS: Partial Thromboplastin Time 24.7 sec (22.0-30.0); Prothrombin Time 10.6 sec (9.0-12.0)
[2021-07-26 07:34] LABS: African American GFR (CKD) >90 (>60 ml/min/1.73 sqM); Anion Gap 8 mmol/L; Blood Urea Nitrogen 13 mg/dL (9-20); Calcium 8.5 mg/dL (8.4-10.2); Carbon Dioxide 24 mmol/L (22-30); Glucose 102 mg/dL (74-99); Non-African American GFR(CKD) >90 (>60 ml/min/1.73 sqM); Potassium 3.8 mmol/L (3.5-5.1); Sodium 140 mmol/L (137-145)
[2021-07-26] MEDS ORDERED: PHENYLEPHRINE-0.9% NACL SYG 1,000 MCG/10 ML SYRINGE ONE (08:00)
[2021-07-26] MEDS ORDERED: ceFAZolin 1,000 MG VIAL ONE (08:00)
[2021-07-26] MEDS ORDERED: MAGNESIUM SULFATE 4 MEQ/ML 10ML VIAL ONE (08:00)
[2021-07-26] MEDS ORDERED: TRANEXAMIC ACID 1,000 MG/10 ML VIAL ONE (08:00)
[2021-07-26] MEDS ORDERED: SODIUM CHLORIDE 0.9% 100 ML BAG ONE (08:00)
[2021-07-26] MEDS ORDERED: SUFentanil 50 MCG/ML 1 ML AMP IV ONE (08:00)
[2021-07-26] MEDS ORDERED: MORPHINE SULFATE (PF) 0.3 MG/0.3 ML SYR ONE (08:00)
[2021-07-26] MEDS ORDERED: HEPARIN SODIUM,PORCINE 10,000 UNIT/ML 1 ML VIAL ONE (08:00)
[2021-07-26] MEDS ORDERED: PROPOFOL 10 MG/ML 20 ML VIAL IV ONE (08:00)
[2021-07-26] MEDS ORDERED: SODIUM CHLORIDE 0.9% IRRIG 1,000 ML BTL IRRIGATION ONE (08:00)
[2021-07-26] MEDS ORDERED: fentaNYL (PF) 50 MCG/ML 50 ML VIAL ONE (08:00)
[2021-07-26] MEDS ORDERED: SUCCINYLCHOLINE CHLORIDE 100 MG/5 ML SYR IV ONE (08:00)
[2021-07-26] MEDS ORDERED: ePHEDrine SULFATE/0.9% NACL/PF 50 MG/5 ML SYRINGE IV ONE (08:00)
[2021-07-26] MEDS ORDERED: MIDAZOLAM 2 MG/2 ML VIAL ONE (08:00)
[2021-07-26] MEDS ORDERED: LIDOCAINE 2% SYG (PF) 100 MG/5 ML ONE (08:00)
[2021-07-26] MEDS ORDERED: SODIUM CHLORIDE 0.9% 250 ML BAG ONE (08:00)
[2021-07-26] MEDS ORDERED: VECURONIUM 10 MG VIAL IV ONE (08:00)
[2021-07-26 08:45] LABS: ABG Base Excess 1.6 mmol/L; ABG Glucose Whole Blood 117 mg/dL (75-99); ABG HCO3 26 mmol/L (21-25); ABG Hematocrit 41 % (34.0-46.0); ABG Ionized Calcium 4.6 mg/dL (4.5-5.3); ABG Lactic Acid Whole Blood 0.8 mmol/L (0.5-1.6); ABG PCO2 40 mmHg (35-45); ABG PH 7.42 (7.35-7.45); ABG Potassium Whole Blood 3.6 mmol/L (3.4-4.5); ABG Sodium Whole Blood 141 mmol/L (135-146); ABG TCO2 27 mmol/L (19-24)
[2021-07-26 11:32] LABS: ABG Base Excess 1.4 mmol/L; ABG Glucose Whole Blood 135 mg/dL (75-99); ABG HCO3 27 mmol/L (21-25); ABG Hematocrit 40 % (34.0-46.0); ABG Ionized Calcium 4.6 mg/dL (4.5-5.3); ABG Lactic Acid Whole Blood 0.8 mmol/L (0.5-1.6); ABG PCO2 46 mmHg (35-45); ABG PH 7.38 (7.35-7.45); ABG PO2 381 mmHg (83-108); ABG Potassium Whole Blood 3.8 mmol/L (3.4-4.5); ABG Sodium Whole Blood 140 mmol/L (135-146); ABG TCO2 29 mmol/L (19-24)
--- NOTE | 2021-07-26 11:42 | P.PN ---
Subjective This is a pleasant 55 years old male with past medical history of paroxysmal atrial fibrillation status post ablation, hypertension, hyperlipidemia. Alcohol abuse. Patient had cardiac cath yesterday with Dr. Luis showed significant coronary artery disease with 70% stenosis of the left main artery and 90% of the LAD. Patient admitted and evaluated by cardiothoracic surgery for bypass procedure this coming Thursday 07/26. Patient currently lying in bed comfortable, he says he has mild chest discomfort and dyspnea. No other complaints. No abdominal pain. No diarrhea. No dysuria. No fever. Vitals are stable. Labs are unremarkable including CBC, BMP, liver enzymes and INR. Patient drink 6 years per day and he is already on CIWA protocol maintained 07/25/2021 patient Is sitting up in bed comfortably. No chest pain or dyspnea. No other complaints Labs and vitals are stable Continue with aspirin, metoprolol, CIWA protocol, no signs of local withdrawal Patient is going for bypass surgery tomorrow 07/26/2021 Pressure undergoing vascular surgery for his coronary artery disease for planned bypass today, after that he will be moved to the intensive care unit we will continue to follow Vitals and labs are reviewed, unremarkable and stable this morning Objective - Vital Signs Vital signs: Vital Signs Temp 96.2 F L 07/26/21 06:10 Pulse 63 07/26/21 06:10 Resp 16 07/26/21 06:10 BP 126/82 07/26/21 06:10 Pulse Ox 96 07/26/21 06:10 Intake & Output 07/25/21 07/26/21 07/26/21 18:59 06:59 18:59 Intake Total 540 200 53 Balance 540 200 53 Weight 66 kg Intake: IV 200 53 Oral 540 Other: # Voids 2 3 - Exam GENERAL: The patient is alert and oriented x3, not in any acute distress. Well developed, well nourished. HEENT: Pupils are round and equally reacting to light. EOMI. No scleral icterus. No conjunctival pallor. Normocephalic, atraumatic. No pharyngeal erythema. No thyromegaly. CARDIOVASCULAR: S1 and S2 present. No murmurs, rubs, or gallops. PULMONARY: Chest is clear to auscultation, no wheezing or crackles. ABDOMEN: Soft, nontender, nondistended, normoactive bowel sounds. No palpable organomegaly. MUSCULOSKELETAL: No joint swelling or deformity. EXTREMITIES: No cyanosis, clubbing, or pedal edema. NEUROLOGICAL: Gross neurological examination did not reveal any focal deficits. SKIN: No rashes. no petechiae. - Labs CBC & Chem 7: 07/26/21 06:30 07/26/21 06:30 Labs: Abnormal Lab Results - Last 24 Hours (Table) 07/25/21 07/26/21 Range/Units 06:30 06:30 Chloride 108 H (98-107) mmol/L Glucose 102 H (74-99) mg/dL Crossmatch See Detail Microbiology - Last 24 Hours (Table) 07/23/21 18:25 Nasal Screen MRSA/MSSA - Final Nasal Swab Staphylococcus aureus,Not MRSA Assessment and Plan Assessment: coronary artery disease with stenosis of left main artery 70%, and LAD 90%, scheduled for bypass surgery on 07/26 Paroxysmal atrial fibrillation status post ablation, not on anticoagulation Hypertension Hyperlipidemia Plan: This is a pleasant 55 years old male with significant coronary artery disease scheduled for bypass on Thursday 07/26 Continue with aspirin Continue with CIWA protocol and a mean Several consultants on the case including cardiology and cardiothoracic surgery and pulmonary Labs and medication were reviewed.. Continue same treatment. Continue with symptomatic treatment. Resume home medication. Monitor lytes and vitals. DVT and GI prophylaxis. Further recommendationsas per clinical course of the patient DVT prophylaxis: Subcutaneous heparin Lovenox GI Prophylaxis: Ppi Prognosis is guarded
[2021-07-26 12:09] LABS: ABG Base Excess 0.5 mmol/L; ABG Glucose Whole Blood 127 mg/dL (75-99); ABG HCO3 26 mmol/L (21-25); ABG Hematocrit 34 % (34.0-46.0); ABG Ionized Calcium 4.1 mg/dL (4.5-5.3); ABG Lactic Acid Whole Blood 0.9 mmol/L (0.5-1.6); ABG PCO2 42 mmHg (35-45); ABG Potassium Whole Blood 4.6 mmol/L (3.4-4.5); ABG Sodium Whole Blood 139 mmol/L (135-146); ABG TCO2 27 mmol/L (19-24)
[2021-07-26 12:45] LABS: ABG Glucose Whole Blood 136 mg/dL (75-99); ABG HCO3 25 mmol/L (21-25); ABG Hematocrit 38 % (34.0-46.0); ABG Ionized Calcium 4.2 mg/dL (4.5-5.3); ABG PCO2 44 mmHg (35-45); ABG PH 7.37 (7.35-7.45); ABG PO2 316 mmHg (83-108); ABG Potassium Whole Blood 4.4 mmol/L (3.4-4.5); ABG Sodium Whole Blood 140 mmol/L (135-146); ABG TCO2 27 mmol/L (19-24)
[2021-07-26] MEDS ORDERED: Phosphorus Replacement Protoco 1 EACH MISC MISCELLANE PRN (14:00)
[2021-07-26] MEDS ORDERED: ONDANSETRON 4 MG/2 ML VIAL IVP PRN (14:00)
[2021-07-26] MEDS ORDERED: BENZOCAINE/MENTHOL LOZENG 1 EACH LOZENGE MUCOUS MEM PRN (14:00)
[2021-07-26] MEDS ORDERED: ALBUMIN HUMAN 5% 250 ML in EMPTY BAG 1 BAG IVPB PRN (14:00)
[2021-07-26] MEDS ORDERED: hydrALAZINE HCL 20 MG/ML 1 ML VIAL IVP PRN (14:00)
[2021-07-26] MEDS ORDERED: AMIODARONE 450 MG in DEXTROSE 5% IN WATER 250 ML IV PRN ×2 (14:00)
[2021-07-26] MEDS ORDERED: CALCIUM GLUCONATE 2 GM in SODIUM CHLORIDE 0.9% 100 ML IVPB PRN (14:00)
[2021-07-26] MEDS ORDERED: Magnesium Replacement Protocol 1 EACH MISC MISCELLANE PRN (14:00)
[2021-07-26] MEDS ORDERED: DEXTROSE 5% IN WATER 100 ML with AMIODARONE 150 MG IV PRN (14:00)
[2021-07-26] MEDS ORDERED: Potassium Replacement Protocol 1 EACH MISC MISCELLANE PRN (14:00)
[2021-07-26] MEDS ORDERED: AMIODARONE 360 MG in DEXTROSE 5% IN WATER 200 ML IV PRN ×2 (14:00)
[2021-07-26] MEDS ORDERED: DEXMEDETOMIDINE/0.9% NACL(PMX) 400 MCG in EMPTY BAG 1 BAG IV SCH (14:00)
[2021-07-26] MEDS ORDERED: IPRATROPIUM-ALBUTEROL 3 ML NEB INHALATION PRN (14:00)
[2021-07-26] MEDS ORDERED: METOCLOPRAMIDE 5 MG/ML 2 ML VIAL IVP PRN (14:00)
[2021-07-26] MEDS ORDERED: ALBUMIN HUMAN 5% 250 ML IVPB ONE (14:06)
[2021-07-26 14:16] LABS: ABG PO2 >420 mmHg (83-108)
[2021-07-26 14:17] LABS: ABG PO2 >420 mmHg (83-108)
[2021-07-26] MEDS: NITROGLYCERIN-D5W PMX 50 MG in DEXTROSE/WATER 1 250ML.BAG IV SCH (14:30)
[2021-07-26] MEDS: SODIUM CHLORIDE 0.9% 1,000 ML IV SCH (14:30)
[2021-07-26 14:42] LABS: Glucose,Whole Blood 111 mg/dL (75-99)
[2021-07-26] MEDS: MORPHINE SULFATE 2 MG/ML SYRINGE IVP PRN ×2 (14:50→18:56)
[2021-07-26 14:51] LABS: Ionized Calcium 4.9 mg/dL (4.5-5.3)
[2021-07-26] MEDS ORDERED: DEXTROSE 5% IN WATER 100 ML with AMIODARONE 150 MG IV ONE (14:51)
[2021-07-26 14:52] VITALS: BMI 17.0
[2021-07-26 14:57] LABS: ALT 17 U/L (4-49); AST 33 U/L (17-59); African American GFR (CKD) >90 (>60 ml/min/1.73 sqM); Albumin 2.3 g/dL (3.5-5.0); Alkaline Phosphatase 37 U/L (38-126); Anion Gap 4 mmol/L; Blood Urea Nitrogen 8 mg/dL (9-20); Calcium 7.8 mg/dL (8.4-10.2); Carbon Dioxide 24 mmol/L (22-30); Chloride 109 mmol/L (98-107); Glucose 110 mg/dL (74-99); Magnesium 2.2 mg/dL (1.6-2.3); Non-African American GFR(CKD) >90 (>60 ml/min/1.73 sqM); Potassium 3.7 mmol/L (3.5-5.1); Sodium 137 mmol/L (137-145); Total Bilirubin 0.8 mg/dL (0.2-1.3); Total Protein 4.3 g/dL (6.3-8.2)
--- NOTE | 2021-07-26 14:59 | XR ---
EXAMINATION TYPE: XR chest 1V portable DATE OF EXAM: 07/26/2021 COMPARISON: Chest x-ray of 07/23/2021 HISTORY: Postop cardiac surgery TECHNIQUE: Single frontal view of the chest is obtained. FINDINGS: Patient is post median sternotomy. Endotracheal tube and NG tube, right jugular central ve nous catheter, mediastinal drain, bilateral chest tubes are overlying appropriate positions. No evide nt pneumothorax. There is blunting of the left cost phrenic angle. Patient is post median sternotomy and left atrial appendage clip placement. Cardiac mediastinal silhouette is somewhat widened likely d ue to postop change. IMPRESSION: There may be basilar atelectasis, small effusion on the left. Overall satisfactory posto perative chest x-ray.
[2021-07-26 15:02] LABS: INR 1.1 (<1.2); Partial Thromboplastin Time 43.5 sec (22.0-30.0); Prothrombin Time 11.6 sec (9.0-12.0)
[2021-07-26 15:13] LABS: Basophils % (A) 0 %; Eosinophils % (A) 1 %; HCT 33.2 % (39.0-53.0); HGB 11.9 gm/dL (13.0-17.5); Lymphocytes % (A) 15 %; MCH 33.5 pg (25.0-35.0); MCHC 35.9 g/dL (31.0-37.0); MCV 93.3 fL (80.0-100.0); Mean Platelet Volume 7.5; Monocytes # (A) 0.1 k/uL (0-1.0); Monocytes % (A) 2 %; Neutrophils # (A) 5.3 k/uL (1.3-7.7); Neutrophils % (A) 82 %; Platelet Count 109 k/uL (150-450); RBC 3.56 m/uL (4.30-5.90); RDW 12.7 % (11.5-15.5); WBC 6.5 k/uL (3.8-10.6)
[2021-07-26 15:24] LABS: Glucose,Whole Blood 113 mg/dL (75-99)
[2021-07-26 15:25] LABS: ABG Base Excess 1.8 mmol/L; ABG HCO3 27 mmol/L (21-25); ABG Oxygen Saturation 99.4 % (94-97); ABG PCO2 45 mmHg (35-45); ABG PH 7.39 (7.35-7.45); ABG PO2 175 mmHg (83-108); ABG TCO2 28 mmol/L (19-24); Allen Test Performed? Yes
[2021-07-26] MEDS: ASPIRIN 325 MG TAB PO SCH (15:25)
[2021-07-26] MEDS: MUPIROCIN 2% OINT 22 GM TUBE NASAL SCH ×2 (15:26→21:57)
[2021-07-26] MEDS: METOPROLOL TARTRATE 12.5 MG TAB PO SCH ×2 (15:26→21:18)
[2021-07-26] MEDS: SODIUM CHLORIDE 0.9% 1,000 ML in EMPTY BAG 1 BAG IV SCH (15:28)
[2021-07-26] MEDS: IPRATROPIUM-ALBUTEROL 3 ML NEB INHALATION SCH ×3 (15:35→20:15)
[2021-07-26] MEDS ORDERED: CALCIUM GLUCONATE 1 GM in SODIUM CHLORIDE 0.9% 100 ML IVPB ONE (15:45)
[2021-07-26] MEDS ORDERED: POTASSIUM BICARBONATE/CIT AC 20 MEQ TABLET.EFF PO ONE (15:45)
--- NOTE | 2021-07-26 15:50 | OP ---
OPERATIVE REPORT DATE OF THE SURGERY: 07/26/2021. SURGEON: Dr. Dung Malcolm. ASSISTANTS: 1. CARMELINA Valencia. 2. Brandy De Oliveira. PREOPERATIVE DIAGNOSES: 1. Left main disease. 2. Hypertension. 3. Hyperlipidemia. 4. History of paroxysmal atrial fibrillation, status post ablation. POSTOPERATIVE DIAGNOSES: 1. Left main disease. 2. Hypertension. 3. Hyperlipidemia. 4. History of paroxysmal atrial fibrillation, status post ablation. PROCEDURE: 1. Total arterial double coronary artery bypass grafting using the skeletonized in situ right internal mammary artery crossing anteriorly to the left anterior descending artery, the skeletonized in situ left internal mammary artery to the ramus intermedius artery. 2. Exclusion of the left atrial appendage using a 35 mm AtriClip. 3. Intraoperative graft flow measurements using the [employer] system. 4. Intraoperative transesophageal echocardiogram and epiaortic scanning. INDICATIONS FOR SURGERY: The patient is a 55-year-old gentleman with a past medical history of hypertension, hyperlipidemia and moderate alcohol consumption who has been complaining of dyspnea on exertion and with some chest discomfort for a year. Workup included a 2D echo that showed preserved function. Cardiac catheterization followed and that showed a plaque in the distal left main that was significant into the LAD. The right coronary artery was with no significant stenosis. His lateral wall is supplied by mainly a ramus intermedius artery and the distal circumflex is a small non-bypassable vessel. The patient was kept in the hospital in view of the critical anatomy. I will proceed with urgent surgery today. The STS risk was discussed with him and his . They understood it and agreed to proceed. The patient has a history of atrial fibrillation and underwent ablation and has been free of atrial fibrillation. Discussion with referring continuing education specialist concluded the lack of need to proceed with any pulmonary vein isolation and just to exclude the left atrial appendage; something we plan to do electively on everybody, anyway. DESCRIPTION OF THE PROCEDURE: With the patient in supine position, right internal jugular [place] catheter and right radial arterial line were placed. Normal PA pressure and good cardiac index. Subsequently he was brought to the operating room, where general endotracheal anesthesia was induced uneventfully. He received 2 grams of cefazolin intravenously as well as 1 gram of vancomycin intravenously for a positive staph screen in the nose. Brown catheter was inserted. The chest, abdomen and both lower extremities were prepped and draped using ChloraPrep. Ioban was used to cover the skin. Transesophageal echocardiogram confirmed the preoperative finding of normal systolic function and no significant valvular abnormality with a normal-sized aortic root. Midline sternotomy was performed and Ostene was used. The left hemisternum was elevated and the left internal mammary artery was harvested in a totally skeletonized fashion using a plasma blade. The left pleura was intentionally opened in this process and was drained with a 19-Israeli Michael drain. The same was repeated on the right side, where the right hemisternum was elevated and the right internal mammary artery was harvested in a totally skeletonized fashion. The right pleura was opened and drained with a 19-Israeli Michael drain. Subsequently we used an [employer] tractor for completion of the surgery. Mediastinal fat was transected between 2 ties and epiaortic scanning revealed no protruding atheroma in the ascending aorta. Pericardium was opened in an inverted T-fashion and a pericardial cradle was created. Findings included a normal aorta, soft, and a normal-sized heart. After systemic heparinization and placement of respective pledgeted pursestrings, aortic cannulation with a 21-Israeli Soft flow cannula and venous cannulation via the right atrial appendage with a 3-stage 29-Israeli cannula were performed. Antegrade as well as retrograde cardioplegia catheters were placed. Cardiopulmonary bypass was initiated. The patient was allowed to have a temperature dropped to 35 degrees Celsius. With the heart empty and beating, we looked at the target, and it appeared that the mid LAD and the proximal ramus intermedius artery before it went into myocardial would be the site for bypass. Aorta was clamped, and during aortic clamping myocardial protection was achieved with an initial dose of 1 L of antegrade cold blood cardioplegia with adequate arrest 200 mL followed by a dose of retrograde cold cardioplegia. Subsequent doses were given antegrade. The first distal anastomosis was between the left internal mammary artery that passed in a window made in the left side of the pericardium and anastomosed to the ramus intermedius artery, which was around a 2 mm vessel, using Prolene 7-0 in continuous fashion. The second distal anastomosis was between the right internal mammary artery that crossed anteriorly at the level of the mid ascending aorta and anastomosed to the mid left anterior descending artery, which was around 4 mm in diameter across the soft plaque at that level with normal artery on both sides of the plaque. With that, patient had been rewarmed and was given lidocaine and magnesium, and aorta was unclamped. He regained spontaneous sinus rhythm. After around 10-15 minutes of reperfusion, he was weaned off cardiopulmonary bypass without the need of any inotropic or vasopressor support. Graft flow measurements at this point with the [employer] system showed a flow of 55 mL/minute into the right internal mammary artery with a pulsatility index of 1, diastolic filling of 60%. The flow into the left internal mammary artery to the obtuse marginal artery was 54 mL/minute, pulsatility index of 1.6, diastolic filling of 65%, showing two excellent functioning grafts. With that, all suckers were stopped and test-dose then full-dose protamine was given. Decannulation followed. The venous cannulation site was reinforced with a silk tie. No pacing wires were placed. One 19-Israeli Michael drain was left substernally. Pericardial fat was approximated over the heart and mediastinal fat was used to cover the right internal mammary artery across its course, which again was at the level of the mid ascending aorta. After ensuring adequate hemostasis and hemodynamics and after correct sponge, instrument and needle counts, the sternum was closed using 5 [id number] pineal cables after interposing Fibrillar between the sternal edges. Thorough irrigation with cefazolin followed. The rest of the closure proceeded in layers. Skin glue was applied. The patient did not receive any blood bank product but received around 500 mL of Cell Saver blood. He was transferred to the ICU with excellent hemodynamics on low- dose nitroglycerin. MMODL / IJN: [id number] /
[2021-07-26] MEDS ORDERED: BENZOCAINE SPRAY 1 CAN MUCOUS MEM PRN (16:17)
[2021-07-26 16:28] LABS: Glucose,Whole Blood 158 mg/dL (75-99)
[2021-07-26 17:06] LABS: Glucose,Whole Blood 184 mg/dL (75-99)
[2021-07-26] MEDS: KETOROLAC 15 MG/ML 1 ML VIAL IVP SCH (17:36)
[2021-07-26] MEDS: HEPARIN SODIUM,PORCINE/PF 5,000 UNIT/0.5 ML SYRINGE SQ SCH (17:36)
[2021-07-26] MEDS: ATORVASTATIN 80 MG TAB PO SCH (17:37)
[2021-07-26 17:47] LABS: Basophils % (A) 0 %; Eosinophils % (A) 0 %; HCT 42.6 % (39.0-53.0); HGB 14.8 gm/dL (13.0-17.5); Lymphocytes # (A) 0.9 k/uL (1.0-4.8); Lymphocytes % (A) 8 %; MCHC 34.7 g/dL (31.0-37.0); MCV 95.3 fL (80.0-100.0); Mean Platelet Volume 7.5; Monocytes # (A) 0.5 k/uL (0-1.0); Monocytes % (A) 5 %; Neutrophils # (A) 9.5 k/uL (1.3-7.7); Neutrophils % (A) 87 %; Platelet Count 141 k/uL (150-450); RBC 4.47 m/uL (4.30-5.90); RDW 12.1 % (11.5-15.5)
[2021-07-26 18:08] LABS: Glucose,Whole Blood 160 mg/dL (75-99)
[2021-07-26 18:21] LABS: ABG HCO3 27 mmol/L (21-25); ABG Oxygen Saturation 98.6 % (94-97); ABG PCO2 48 mmHg (35-45); ABG PH 7.36 (7.35-7.45); ABG PO2 118 mmHg (83-108); ABG TCO2 28 mmol/L (19-24); Allen Test Performed? Yes
[2021-07-26] MEDS: ACETAMINOPHEN IV (For NPO) 1,000 MG in EMPTY BAG 1 BAG IVPB SCH (18:29)
[2021-07-26 19:01] LABS: Glucose,Whole Blood 142 mg/dL (75-99)
[2021-07-26 20:06] LABS: Glucose,Whole Blood 116 mg/dL (75-99)
[2021-07-26 20:12] LABS: Basophils % (A) 0 %; Eosinophils % (A) 0 %; HCT 37.8 % (39.0-53.0); HGB 13.2 gm/dL (13.0-17.5); Lymphocytes # (A) 0.5 k/uL (1.0-4.8); Lymphocytes % (A) 4 %; MCHC 34.8 g/dL (31.0-37.0); MCV 94.9 fL (80.0-100.0); Mean Platelet Volume 8.4; Monocytes # (A) 0.5 k/uL (0-1.0); Monocytes % (A) 5 %; Neutrophils # (A) 9.4 k/uL (1.3-7.7); Neutrophils % (A) 91 %; Platelet Count 128 k/uL (150-450); RBC 3.99 m/uL (4.30-5.90); RDW 12.2 % (11.5-15.5); WBC 10.4 k/uL (3.8-10.6)
[2021-07-26 21:08] LABS: Glucose,Whole Blood 124 mg/dL (75-99)
[2021-07-26] MEDS: AMIODARONE 200 MG TAB PO SCH (21:19)
[2021-07-26] MEDS: CLOPIDOGREL 75 MG TAB PO SCH (21:19)
[2021-07-26] MEDS ORDERED: POTASSIUM CHLORIDE ER 20 MEQ TAB.ER PO SCH (22:00)
[2021-07-26 22:09] LABS: Glucose,Whole Blood 135 mg/dL (75-99)
[2021-07-26 23:13] LABS: Glucose,Whole Blood 139 mg/dL (75-99)
[2021-07-27 00:12] LABS: Glucose,Whole Blood 134 mg/dL (75-99)
[2021-07-27] MEDS: ACETAMINOPHEN IV (For NPO) 1,000 MG in EMPTY BAG 1 BAG IVPB SCH (00:22)
[2021-07-27] MEDS: KETOROLAC 15 MG/ML 1 ML VIAL IVP SCH ×5 (00:23→23:22)
[2021-07-27] MEDS: HEPARIN SODIUM,PORCINE/PF 5,000 UNIT/0.5 ML SYRINGE SQ SCH ×4 (00:24→23:22)
[2021-07-27] MEDS ORDERED: HYDROcodone/APAP 5-325MG 1 EACH TAB PO PRN ×2 (02:02→02:03)
[2021-07-27 02:16] LABS: Glucose,Whole Blood 139 mg/dL (75-99)
[2021-07-27 03:03] LABS: Glucose,Whole Blood 132 mg/dL (75-99)
[2021-07-27 04:58] LABS: Glucose,Whole Blood 128 mg/dL (75-99)
[2021-07-27 05:21] LABS: Basophils % (A) 0 %; Eosinophils % (A) 0 %; HCT 36.7 % (39.0-53.0); HGB 12.9 gm/dL (13.0-17.5); Lymphocytes # (A) 0.6 k/uL (1.0-4.8); Lymphocytes % (A) 5 %; MCH 33.2 pg (25.0-35.0); MCHC 35.1 g/dL (31.0-37.0); MCV 94.6 fL (80.0-100.0); Mean Platelet Volume 8.4; Monocytes # (A) 0.7 k/uL (0-1.0); Monocytes % (A) 6 %; Neutrophils # (A) 9.8 k/uL (1.3-7.7); Neutrophils % (A) 88 %; Platelet Count 129 k/uL (150-450); RBC 3.89 m/uL (4.30-5.90); RDW 12.2 % (11.5-15.5); WBC 11.1 k/uL (3.8-10.6)
[2021-07-27 05:53] LABS: Ionized Calcium 4.8 mg/dL (4.5-5.3)
[2021-07-27 06:06] LABS: ALT 19 U/L (4-49); AST 35 U/L (17-59); African American GFR (CKD) >90 (>60 ml/min/1.73 sqM); Albumin 3.2 g/dL (3.5-5.0); Alkaline Phosphatase 49 U/L (38-126); Anion Gap 7 mmol/L; Blood Urea Nitrogen 10 mg/dL (9-20); Calcium 8.1 mg/dL (8.4-10.2); Carbon Dioxide 23 mmol/L (22-30); Chloride 102 mmol/L (98-107); Glucose 127 mg/dL (74-99); Magnesium 1.9 mg/dL (1.6-2.3); Non-African American GFR(CKD) >90 (>60 ml/min/1.73 sqM); Sodium 132 mmol/L (137-145); Total Bilirubin 0.9 mg/dL (0.2-1.3); Total Protein 5.4 g/dL (6.3-8.2)
[2021-07-27 06:17] LABS: Glucose,Whole Blood 135 mg/dL (75-99)
[2021-07-27 07:08] LABS: Glucose,Whole Blood 153 mg/dL (75-99)
--- NOTE | 2021-07-27 07:15 | XR ---
EXAMINATION TYPE: XR chest 1V portable DATE OF EXAM: 07/27/2021 COMPARISON: Chest x-ray 07/26/2021 HISTORY: Postop cardiac surgery TECHNIQUE: Single frontal view of the chest is obtained. FINDINGS: There is been interval extubation, endotracheal and NG tube. Median sternal drain, right j ugular central venous catheter, left and right chest tubes remain in place. No evident pneumothorax o r sizable effusion. Cardiac mediastinal silhouette is stable accounting for differences in technique. Patient is post median sternotomy and left atrial appendage clip placement. Minimal patchy basilar d ensity is present. IMPRESSION: Interval extubation. Probable basilar atelectasis, no sizable effusion
[2021-07-27] MEDS: IPRATROPIUM-ALBUTEROL 3 ML NEB INHALATION SCH ×4 (07:54→20:35)
[2021-07-27] MEDS ORDERED: FUROSEMIDE 10 MG/ML 2 ML VIAL IV STA (08:48)
[2021-07-27] MEDS ORDERED: MAGNESIUM HYDROXIDE 2,400 MG/10 ML CUP PO PRN (09:00)
[2021-07-27] MEDS ORDERED: PANTOPRAZOLE 40 MG/10 ML VIAL IVP SCH (09:00)
[2021-07-27] MEDS ORDERED: CLOPIDOGREL 75 MG TAB PO SCH (09:00)
[2021-07-27] MEDS ORDERED: bisacodyL 10 MG SUPP RECTAL PRN (09:00)
--- NOTE | 2021-07-27 09:21 | P.PN ---
Subjective Progress Note Date: 07/27/21 Principal diagnosis: Coronary artery disease with left main disease. Past medical history significant for paroxysmal atrial fibrillation status post ablation in 2012, hypertension, hyperlipidemia, appendicitis status post appendectomy in September 2020, daily EtOH use without history of withdrawal, lifetime nonsmoker and a family history of heart disease on his mother's side and son having Marfan's. POD #1 total arterial double coronary artery bypass grafting using the skele tonized in situ right internal mammary artery crossing anteriorly to the left anterior descending coronary artery, the skeletonized in situ left internal mammary artery to the ramus intermedius coronary artery. Exclusion of the left atrial appendage using a 35 mm Atriclip. Intraoperative graft flow measurements using the dilitronics system, intraoperative transesophageal echocardiogram and epi-aortic scanning. Postoperative acute blood loss anemia and thrombocytopenia, expected given hemodilution and cardiopulmonary bypass pump. The patient was seen in follow-up today 07/27/2021 at his bedside in the intensive care unit. Currently he is sitting up to the bedside chair, is awake, alert and oriented 3 and is in no acute distress. Denies any complaints of shortness of breath, although is complaining of some surgical type pain to his chest tube insertion sites which she reports is well controlled with the current pain medication regimen. He remains hemodynamically stable and is currently on no inotropic or pressor support. He was successfully extubated at 6:35 PM last evening, currently he is on room air with oxygen saturations 95%. He is achieving 1500 mL on his incentive spirometry with encouragement. Mediastinal, left and right pleural chest tubes remain in place to low continuous wall suction -20 cm H2O. No air leak is present. Draining thin serosanguineous drainage with his left pleural chest tube draining 20 mL output in the last 8 hours and 250 mL output since surgery. Mediastinal chest tubes drained 30 mL output in the last 8 hours and 550 mL output since surgery. Right pleural chest tube with 450 mL output since surgery. Right IJ Cordis with [place]atie catheter remains in place with current hemodynamics showing a cardiac output of 5.7, cardiac index 2.4, PA pressures 17/8 and CVP 8 mmHg. Bedside telemetry showing normal sinus rhythm heart rate 75 BPM. Objective - Vital Signs Vital signs: Vital Signs Temp 37.0 F L 07/27/21 04:00 Pulse 70 07/27/21 07:57 Resp 16 07/27/21 07:57 BP 126/82 07/26/21 06:10 Pulse Ox 95 07/27/21 07:00 Intake & Output 07/26/21 07/27/21 07/27/21 18:59 06:59 18:59 Intake Total 849.213 4844.829 77.214 Output Total 4610 1228 170 Balance -4070.007 1243.829 -92.786 Weight 66 kg 105.1 kg Intake: IV 449 1258 59 .9 NS pressure bag 36 108 9 ACETAMINOPHEN IV (For NPO 100 100 ) 1,000 mg In Empty Bag 1 bag @ 400 mls/hr IVPB Q6HR [facility] Rx#:[id number] Albumin Human 5% 250 ml 250 In Empty Bag 1 bag @ 250 mls/hr IVPB Q1HR PRN Rx#: [id number] CO/CI 60 180 Sodium Chloride 0.9% 1, 200 570 50 000 ml @ 50 mls/hr IV . Q20H [facility] Rx#:[id number] ceFAZolin 2 gm In Sodium 50 Chloride 0.9% 50 ml @ 100 mls/hr IVPB Q8HR [facility] Rx# :[id number] Intake, IV Titration 90.993 13.829 18.214 Amount Clevidipine Butyrate 25 50.000 mg In Empty Bag 1 bag @ 1 MG/HR 2 mls/hr IV .Q24H [facility] Rx#:[id number] Dexmedetomidine/0.9% NaCl 21.175 (Pmx) 400 mcg In Empty Bag 1 bag @ Titrate IV . Q0M [facility] Rx#:[id number] Insulin Regular 100 unit 1.338 13.829 18.214 In Sodium Chloride 0.9% 100 ml @ Per Protocol IV .Q0M [facility] Rx#:[id number] propofoL 1,000 mg In 18.48 Empty Bag 1 bag @ Titrate IV .Q0M [facility] Rx#: [id number] Oral 1200 Output: Chest Tube Drainage 610 428 150 Chest Tube Left 120 118 0 Chest Tube Mediastinal 300 160 0 Chest Tube Right 190 150 150 Urine 2500 800 20 Estimated Blood Loss 1500 Other: Voiding Method Indwelling Catheter Indwelling Catheter ABP, PAP, CO, CI - Last Documented Arterial Blood Pressure 108/57 Pulmonary Artery Pressure 17/8 Cardiac Output 5.7 Cardiac Index 2.4 - Exam CONSTITUTIONAL: Sitting up to the bedside chair in the intensive care unit, appears comfortable, cooperative, no apparent acute distress. HEENT: Neck is supple, no JVD, no lymphadenopathy. Right IJ Cordis and [place] Katie catheter in place and functioning. RESPIRATORY: Lungs sounds essentially clear throughout, diminished to his bilateral bases. Respirations are symmetrical and nonlabored. Currently on room air with oxygen saturations 95%. Able to achieve 1500 mL on his incentive spirometry. Strong cough. CARDIOVASCULAR: Regular rhythm and rate. S1 and S2 present, negative for S3, gallop or murmur. Sternum is stable. Palpable peripheral pulses bilaterally, no edema present to his bilateral lower extremities. No calf pain or tenderness noted. Heart hugger in place with patient demonstrating appropriate use. Knee- high LUKE hose and sequential compression devices in place to his bilateral lower extremities. GASTROINTESTINAL: Abdomen soft, nontender, nondistended. Hypoactive bowel sounds present 4 quadrants. Tolerating diet. Passing flatus. No guarding or rigidity. GENITOURINARY: Brown present draining clear, yellow urine. Output 385 mL in the last 8 hours INTEGUMENTARY: Skin is warm and dry with no evidence of clubbing or cyanosis. Midline sternal incision clean dry and well approximated, covered with dry intact dressing. NEUROLOGIC: Cranial nerves II through XII intact. No focal deficits. MUSKULOSKELETAL: Able to move all extremities, strength equal bilaterally, generalized weakness. PSYCHIATRIC: Alert and oriented to person place and time, appropriate affect, intact judgment and insight. INVASIVE LINES AND TUBES: Mediastinal, left and right pleural chest tubes present and connected to low continuous wall suction, no air leaks present. Mediastinal tube with 30 mL of thin serosanguineous drainage overnight, 550 mL output in the last 24 hours. Left pleural chest tube with 20 mL of thin serosanguineous drainage overnight, 250 mL output in the last 24 hours. Right pleural chest tube with 0 mL of drainage overnight, 450 mL output in the last 24 hours. Right internal jugular [place]/Cordis, right radial arterial line present. Last CO 5.7, CI 2.4, PA 17/8 and CVP 8 mmHg. - Allied health notes Allied health notes reviewed: nursing - Labs CBC & Chem 7: 07/27/21 05:00 07/27/21 05:00 Labs: Abnormal Lab Results - Last 24 Hours (Table) 07/25/21 07/26/21 07/26/21 Range/Units 06:30 08:49 11:37 WBC (3.8-10.6) k/uL RBC (4.30-5.90) m/uL Hgb (13.0-17.5) gm/dL Hct (39.0-53.0) % Plt Count (150-450) k/uL Neutrophils # (1.3-7.7) k/uL Lymphocytes # (1.0-4.8) k/uL APTT (22.0-30.0) sec ABG pCO2 46 H (35-45) mmHg ABG pO2 >420 H 381 H (83-108) mmHg ABG HCO3 26 H 27 H (21-25) mmol/L ABG Total CO2 27 H 29 H (19-24) mmol/L ABG O2 Saturation 100.0 H 100.0 H (94-97) % ABG Potassium (3.4-4.5) mmol/L ABG Ionized Calcium (4.5-5.3) mg/dL ABG Glucose 117 H 135 H (75-99) mg/dL Hemoglobin 12.9 L (13.0-17.5) gm/dL Sodium (137-145) mmol/L Chloride (98-107) mmol/L BUN (9-20) mg/dL Creatinine (0.66-1.25) mg/dL Glucose (74-99) mg/dL POC Glucose (mg/dL) (75-99) mg/dL Calcium (8.4-10.2) mg/dL Alkaline Phosphatase (38-126) U/L Total Protein (6.3-8.2) g/dL Albumin (3.5-5.0) g/dL Arterial Blood Potassium (3.4-4.5) mmol/L Arterial Blood Glucose 117 H 135 H (75-99) mg/dL Crossmatch See Detail 07/26/21 07/26/21 07/26/21 Range/Units 12:13 12:50 14:37 WBC (3.8-10.6) k/uL RBC (4.30-5.90) m/uL Hgb (13.0-17.5) gm/dL Hct (39.0-53.0) % Plt Count (150-450) k/uL Neutrophils # (1.3-7.7) k/uL Lymphocytes # (1.0-4.8) k/uL APTT (22.0-30.0) sec ABG pCO2 (35-45) mmHg ABG pO2 >420 H 316 H (83-108) mmHg ABG HCO3 26 H (21-25) mmol/L ABG Total CO2 27 H 27 H (19-24) mmol/L ABG O2 Saturation 100.0 H 100.0 H (94-97) % ABG Potassium 4.6 H (3.4-4.5) mmol/L ABG Ionized Calcium 4.1 L 4.2 L (4.5-5.3) mg/dL ABG Glucose 127 H 136 H (75-99) mg/dL Hemoglobin 11.0 L 12.4 L (13.0-17.5) gm/dL Sodium (137-145) mmol/L Chloride (98-107) mmol/L BUN (9-20) mg/dL Creatinine (0.66-1.25) mg/dL Glucose (74-99) mg/dL POC Glucose (mg/dL) 111 H (75-99) mg/dL Calcium (8.4-10.2) mg/dL Alkaline Phosphatase (38-126) U/L Total Protein (6.3-8.2) g/dL Albumin (3.5-5.0) g/dL Arterial Blood Potassium 4.6 H (3.4-4.5) mmol/L Arterial Blood Glucose 127 H 136 H (75-99) mg/dL Crossmatch 07/26/21 07/26/21 07/26/21 Range/Units 14:39 14:39 14:39 WBC (3.8-10.6) k/uL RBC 3.56 L (4.30-5.90) m/uL Hgb 11.9 L (13.0-17.5) gm/dL Hct 33.2 L (39.0-53.0) % Plt Count 109 L (150-450) k/uL Neutrophils # (1.3-7.7) k/uL Lymphocytes # (1.0-4.8) k/uL APTT 43.5 H (22.0-30.0) sec ABG pCO2 (35-45) mmHg ABG pO2 (83-108) mmHg ABG HCO3 (21-25) mmol/L ABG Total CO2 (19-24) mmol/L ABG O2 Saturation (94-97) % ABG Potassium (3.4-4.5) mmol/L ABG Ionized Calcium (4.5-5.3) mg/dL ABG Glucose (75-99) mg/dL Hemoglobin (13.0-17.5) gm/dL Sodium (137-145) mmol/L Chloride 109 H (98-107) mmol/L BUN 8 L (9-20) mg/dL Creatinine 0.55 L (0.66-1.25) mg/dL Glucose 110 H (74-99) mg/dL POC Glucose (mg/dL) (75-99) mg/dL Calcium 7.8 L (8.4-10.2) mg/dL Alkaline Phosphatase 37 L (38-126) U/L Total Protein 4.3 L (6.3-8.2) g/dL Albumin 2.3 L (3.5-5.0) g/dL Arterial Blood Potassium (3.4-4.5) mmol/L Arterial Blood Glucose (75-99) mg/dL Crossmatch 07/26/21 07/26/21 07/26/21 Range/Units 15:17 15:23 16:07 WBC (3.8-10.6) k/uL RBC (4.30-5.90) m/uL Hgb (13.0-17.5) gm/dL Hct (39.0-53.0) % Plt Count (150-450) k/uL Neutrophils # (1.3-7.7) k/uL Lymphocytes # (1.0-4.8) k/uL APTT (22.0-30.0) sec ABG pCO2 (35-45) mmHg ABG pO2 175 H (83-108) mmHg ABG HCO3 27 H (21-25) mmol/L ABG Total CO2 28 H (19-24) mmol/L ABG O2 Saturation 99.4 H (94-97) % ABG Potassium (3.4-4.5) mmol/L ABG Ionized Calcium (4.5-5.3) mg/dL ABG Glucose (75-99) mg/dL Hemoglobin (13.0-17.5) gm/dL Sodium (137-145) mmol/L Chloride (98-107) mmol/L BUN (9-20) mg/dL Creatinine (0.66-1.25) mg/dL Glucose (74-99) mg/dL POC Glucose (mg/dL) 113 H 158 H (75-99) mg/dL Calcium (8.4-10.2) mg/dL Alkaline Phosphatase (38-126) U/L Total Protein (6.3-8.2) g/dL Albumin (3.5-5.0) g/dL Arterial Blood Potassium (3.4-4.5) mmol/L Arterial Blood Glucose (75-99) mg/dL Crossmatch 07/26/21 07/26/21 07/26/21 Range/Units 17:04 17:30 18:07 WBC 11.0 H (3.8-10.6) k/uL RBC (4.30-5.90) m/uL Hgb (13.0-17.5) gm/dL Hct (39.0-53.0) % Plt Count 141 L (150-450) k/uL Neutrophils # 9.5 H (1.3-7.7) k/uL Lymphocytes # 0.9 L (1.0-4.8) k/uL APTT (22.0-30.0) sec ABG pCO2 (35-45) mmHg ABG pO2 (83-108) mmHg ABG HCO3 (21-25) mmol/L ABG Total CO2 (19-24) mmol/L ABG O2 Saturation (94-97) % ABG Potassium (3.4-4.5) mmol/L ABG Ionized Calcium (4.5-5.3) mg/dL ABG Glucose (75-99) mg/dL Hemoglobin (13.0-17.5) gm/dL Sodium (137-145) mmol/L Chloride (98-107) mmol/L BUN (9-20) mg/dL Creatinine (0.66-1.25) mg/dL Glucose (74-99) mg/dL POC Glucose (mg/dL) 184 H 160 H (75-99) mg/dL Calcium (8.4-10.2) mg/dL Alkaline Phosphatase (38-126) U/L Total Protein (6.3-8.2) g/dL Albumin (3.5-5.0) g/dL Arterial Blood Potassium (3.4-4.5) mmol/L Arterial Blood Glucose (75-99) mg/dL Crossmatch 07/26/21 07/26/21 07/26/21 Range/Units 18:18 18:59 20:00 WBC (3.8-10.6) k/uL RBC 3.99 L (4.30-5.90) m/uL Hgb (13.0-17.5) gm/dL Hct 37.8 L (39.0-53.0) % Plt Count 128 L (150-450) k/uL Neutrophils # 9.4 H (1.3-7.7) k/uL Lymphocytes # 0.5 L (1.0-4.8) k/uL APTT (22.0-30.0) sec ABG pCO2 48 H (35-45) mmHg ABG pO2 118 H (83-108) mmHg ABG HCO3 27 H (21-25) mmol/L ABG Total CO2 28 H (19-24) mmol/L ABG O2 Saturation 98.6 H (94-97) % ABG Potassium (3.4-4.5) mmol/L ABG Ionized Calcium (4.5-5.3) mg/dL ABG Glucose (75-99) mg/dL Hemoglobin (13.0-17.5) gm/dL Sodium (137-145) mmol/L Chloride (98-107) mmol/L BUN (9-20) mg/dL Creatinine (0.66-1.25) mg/dL Glucose (74-99) mg/dL POC Glucose (mg/dL) 142 H (75-99) mg/dL Calcium (8.4-10.2) mg/dL Alkaline Phosphatase (38-126) U/L Total Protein (6.3-8.2) g/dL Albumin (3.5-5.0) g/dL Arterial Blood Potassium (3.4-4.5) mmol/L Arterial Blood Glucose (75-99) mg/dL Crossmatch 07/26/21 07/26/21 07/26/21 Range/Units 20:04 21:07 22:07 WBC (3.8-10.6) k/uL RBC (4.30-5.90) m/uL Hgb (13.0-17.5) gm/dL Hct (39.0-53.0) % Plt Count (150-450) k/uL Neutrophils # (1.3-7.7) k/uL Lymphocytes # (1.0-4.8) k/uL APTT (22.0-30.0) sec ABG pCO2 (35-45) mmHg ABG pO2 (83-108) mmHg ABG HCO3 (21-25) mmol/L ABG Total CO2 (19-24) mmol/L ABG O2 Saturation (94-97) % ABG Potassium (3.4-4.5) mmol/L ABG Ionized Calcium (4.5-5.3) mg/dL ABG Glucose (75-99) mg/dL Hemoglobin (13.0-17.5) gm/dL Sodium (137-145) mmol/L Chloride (98-107) mmol/L BUN (9-20) mg/dL Creatinine (0.66-1.25) mg/dL Glucose (74-99) mg/dL POC Glucose (mg/dL) 116 H 124 H 135 H (75-99) mg/dL Calcium (8.4-10.2) mg/dL Alkaline Phosphatase (38-126) U/L Total Protein (6.3-8.2) g/dL Albumin (3.5-5.0) g/dL Arterial Blood Potassium (3.4-4.5) mmol/L Arterial Blood Glucose (75-99) mg/dL Crossmatch 07/26/21 07/27/21 07/27/21 Range/Units 23:11 00:11 02:15 WBC (3.8-10.6) k/uL RBC (4.30-5.90) m/uL Hgb (13.0-17.5) gm/dL Hct (39.0-53.0) % Plt Count (150-450) k/uL Neutrophils # (1.3-7.7) k/uL Lymphocytes # (1.0-4.8) k/uL APTT (22.0-30.0) sec ABG pCO2 (35-45) mmHg ABG pO2 (83-108) mmHg ABG HCO3 (21-25) mmol/L ABG Total CO2 (19-24) mmol/L ABG O2 Saturation (94-97) % ABG Potassium (3.4-4.5) mmol/L ABG Ionized Calcium (4.5-5.3) mg/dL ABG Glucose (75-99) mg/dL Hemoglobin (13.0-17.5) gm/dL Sodium (137-145) mmol/L Chloride (98-107) mmol/L BUN (9-20) mg/dL Creatinine (0.66-1.25) mg/dL Glucose (74-99) mg/dL POC Glucose (mg/dL) 139 H 134 H 139 H (75-99) mg/dL Calcium (8.4-10.2) mg/dL Alkaline Phosphatase (38-126) U/L Total Protein (6.3-8.2) g/dL Albumin (3.5-5.0) g/dL Arterial Blood Potassium (3.4-4.5) mmol/L Arterial Blood Glucose (75-99) mg/dL Crossmatch 07/27/21 07/27/21 07/27/21 Range/Units 03:02 04:56 05:00 WBC 11.1 H (3.8-10.6) k/uL RBC 3.89 L (4.30-5.90) m/uL Hgb 12.9 L (13.0-17.5) gm/dL Hct 36.7 L (39.0-53.0) % Plt Count 129 L (150-450) k/uL Neutrophils # 9.8 H (1.3-7.7) k/uL Lymphocytes # 0.6 L (1.0-4.8) k/uL APTT (22.0-30.0) sec ABG pCO2 (35-45) mmHg ABG pO2 (83-108) mmHg ABG HCO3 (21-25) mmol/L ABG Total CO2 (19-24) mmol/L ABG O2 Saturation (94-97) % ABG Potassium (3.4-4.5) mmol/L ABG Ionized Calcium (4.5-5.3) mg/dL ABG Glucose (75-99) mg/dL Hemoglobin (13.0-17.5) gm/dL Sodium (137-145) mmol/L Chloride (98-107) mmol/L BUN (9-20) mg/dL Creatinine (0.66-1.25) mg/dL Glucose (74-99) mg/dL POC Glucose (mg/dL) 132 H 128 H (75-99) mg/dL Calcium (8.4-10.2) mg/dL Alkaline Phosphatase (38-126) U/L Total Protein (6.3-8.2) g/dL Albumin (3.5-5.0) g/dL Arterial Blood Potassium (3.4-4.5) mmol/L Arterial Blood Glucose (75-99) mg/dL Crossmatch 07/27/21 07/27/21 07/27/21 Range/Units 05:00 06:15 07:06 WBC (3.8-10.6) k/uL RBC (4.30-5.90) m/uL Hgb (13.0-17.5) gm/dL Hct (39.0-53.0) % Plt Count (150-450) k/uL Neutrophils # (1.3-7.7) k/uL Lymphocytes # (1.0-4.8) k/uL APTT (22.0-30.0) sec ABG pCO2 (35-45) mmHg ABG pO2 (83-108) mmHg ABG HCO3 (21-25) mmol/L ABG Total CO2 (19-24) mmol/L ABG O2 Saturation (94-97) % ABG Potassium (3.4-4.5) mmol/L ABG Ionized Calcium (4.5-5.3) mg/dL ABG Glucose (75-99) mg/dL Hemoglobin (13.0-17.5) gm/dL Sodium 132 L (137-145) mmol/L Chloride (98-107) mmol/L BUN (9-20) mg/dL Creatinine 0.54 L (0.66-1.25) mg/dL Glucose 127 H (74-99) mg/dL POC Glucose (mg/dL) 135 H 153 H (75-99) mg/dL Calcium 8.1 L (8.4-10.2) mg/dL Alkaline Phosphatase (38-126) U/L Total Protein 5.4 L (6.3-8.2) g/dL Albumin 3.2 L (3.5-5.0) g/dL Arterial Blood Potassium (3.4-4.5) mmol/L Arterial Blood Glucose (75-99) mg/dL Crossmatch - Imaging and Cardiology Chest x-ray: report reviewed, image reviewed Assessment and Plan Assessment: 1. Coronary artery disease with left main disease, status post total arterial Doppler coronary artery bypass grafting surgery 2. History of paroxysmal atrial fibrillation status post ablation in 2012, status post exclusion of the left atrial appendage using a 35 mm Atriclip 3. Hypertension 4. Hyperlipidemia, treated, cholesterol 219, LDL 125 5. Appendicitis status post appendectomy in September 2020 6. 6 pack of beer per day EtOH use without history of withdrawal, currently on CIWA protocol 7. Lifetime nonsmoker, preoperative FEV1 89% of predicted 8. Family history of heart disease, including son with Marfan's 9. Postoperative acute blood loss anemia, expected Plan: 1. Continue aspirin, statin, Plavix, beta shabnam. Will increase metoprolol tartrate 25 mg by mouth twice a day. 2. Continue amiodarone 400 mg by mouth twice a day for atrial fibrillation prophylaxis. 3. Bronchodilators per pulmonology management. Encourage incentive spirometer use 10 times every hour while awake. 4. Increase activity, ambulate as tolerated, PT/OT/cardiac rehab consulted. 5. Will monitor daily labs and chest x-rays. Electrolyte replacement per protocol. 6. GI/DVT prophylaxis. 7. Insulin management per primary care service. The patient is a nondiabetic, preoperative hemoglobin A1c 4.9%, does need tight blood sugar control to promote sternal union and prevent infection. 8. Pain control with current medication regimen. Once his chest tubes are removed we will discontinue the Davin and add acetaminophen 650 mg by mouth every 6 hours when necessary pain. 9. We will remove his chest tubes today. 10. Will discontinue swan. Connect cordis to continuous CVP monitoring. 11. Remove Brown, continue to record strict and accurate I's and O's. Daily weights. 12. Lasix 20 mg IV 1 now. 13. Continue CIWA protocol. 14. More recommendations to follow based on patient's clinical course. Time with Patient: Greater than 30
[2021-07-27] MEDS: THIAMINE 100 MG TAB PO SCH ×2 (09:31→17:33)
[2021-07-27] MEDS: MAGNESIUM SULFATE-D5W PMX 1 GM in DEXTROSE/WATER 1 100ML.BAG IVPB SCH ×2 (09:31→13:07)
[2021-07-27] MEDS: CLOPIDOGREL 75 MG TAB PO SCH (09:31)
[2021-07-27] MEDS: ASPIRIN 325 MG TAB PO SCH (09:31)
[2021-07-27] MEDS: AMIODARONE 200 MG TAB PO SCH ×2 (09:31→20:55)
[2021-07-27] MEDS: ATORVASTATIN 80 MG TAB PO SCH (09:32)
[2021-07-27] MEDS: MUPIROCIN 2% OINT 22 GM TUBE NASAL SCH ×2 (09:33→20:58)
[2021-07-27] MEDS: METOPROLOL TARTRATE 25 MG TAB PO SCH ×2 (09:37→20:57)
[2021-07-27 10:46] LABS: Glucose,Whole Blood 141 mg/dL (75-99)
[2021-07-27] MEDS: SODIUM CHLORIDE 0.9% 1,000 ML IV SCH (12:01)
--- NOTE | 2021-07-27 12:35 | P.PN ---
Subjective Progress Note Date: 07/27/21 Principal diagnosis: Coronary artery disease with 70% stenosis of distal left main and 90% stenosis of proximal LAD This is a very pleasant 55-year-old male patient who follows with Dr. Zepeda as his primary care provider. He has a history of hypertension, hyperlipidemia, paroxysmal atrial fibrillation with previous ablation approximately 8 years ago. He does drink about 6 beers daily. He is a lifelong nonsmoker. FEV1 value 89% of predicted. He had been having issues with exertional shortness of breath and chest tightness. He had cardiology workup and stress testing revealed evidence of ischemia. He was brought in yesterday for an elective cardiac catheterization and was found to have 70% distal left main stenosis and a 90% proximal LAD stenosis is being considered for coronary artery bypass surgery. Presently, he is resting quite comfortably in bed. Awake and alert in no acute distress. Denies any chest pain, shortness of breath, cough or congestion. Maintaining good O2 saturation in the 90s on room air. Chest x-ray reveals no acute cardiopulmonary process. Carotid Dopplers revealed no significant carotid stenosis. White count 5.6. Hemoglobin 14.8. Clear liquids 191. Sodium 136. Potassium 4.1. Creatinine 0.70. Glucose 105. He's been initiated on aspirin, statin, beta blockers. Reevaluated today on 07/25/2021, patient is scheduled to undergo myocardial revascularization tomorrow, pulmonary-maddox, the patient is doing great, no cough no wheezing no shortness of breath, patient is doing excellent with incentive spirometry, his FEV1 baseline is 89%, and we have cleared him yesterday for surgery which is scheduled tomorrow. Chest x-ray a few days ago showed no acute cardiopulmonary process. Reevaluated today on 07/27/2021, patient is postoperative day #1, remains in the ICU, patient is doing great. No major issues overnight, patient was extubated shortly after he arrived to the ICU. Patient is hemodynamically stable, not requiring any inotropes or any pressors. He was extubated at 6:35 PM, he is now on room air, not in any distress. Doing extremely well with incentive spirometry about 1500 mL. Chest tubes and the amount of drainage noted. And that being addressed by thoracic surgery. His right IJ Cordis and Milford Omid remain in place. His last cardiac output was 5.7 index 2.4 pulmonary artery pressures 17/8. Chest x-ray is unremarkable. CBC is relatively normal left lites are normal renal profile is normal. Objective - Vital Signs Vital signs: Vital Signs Temp 99.5 F 07/27/21 08:00 Pulse 72 07/27/21 11:40 Resp 18 07/27/21 11:40 BP 126/82 07/26/21 06:10 Pulse Ox 96 07/27/21 10:30 Intake & Output 07/26/21 07/27/21 07/27/21 18:59 06:59 18:59 Intake Total 683.906 7779.829 284.214 Output Total 4610 1228 1050 Balance -4070.007 1243.829 -765.786 Weight 66 kg 105.1 kg Intake: IV 449 1258 266 .9 NS pressure bag 36 108 36 ACETAMINOPHEN IV (For NPO 100 100 ) 1,000 mg In Empty Bag 1 bag @ 400 mls/hr IVPB Q6HR [facility] Rx#:[id number] Albumin Human 5% 250 ml 250 In Empty Bag 1 bag @ 250 mls/hr IVPB Q1HR PRN Rx#: [id number] CO/CI 60 180 Sodium Chloride 0.9% 1, 200 570 180 000 ml @ 50 mls/hr IV . Q20H [facility] Rx#:[id number] ceFAZolin 2 gm In Sodium 50 50 Chloride 0.9% 50 ml @ 100 mls/hr IVPB Q8HR [facility] Rx# :[id number] Intake, IV Titration 90.993 13.829 18.214 Amount Clevidipine Butyrate 25 50.000 mg In Empty Bag 1 bag @ 1 MG/HR 2 mls/hr IV .Q24H [facility] Rx#:[id number] Dexmedetomidine/0.9% NaCl 21.175 (Pmx) 400 mcg In Empty Bag 1 bag @ Titrate IV . Q0M [facility] Rx#:[id number] Insulin Regular 100 unit 1.338 13.829 18.214 In Sodium Chloride 0.9% 100 ml @ Per Protocol IV .Q0M [facility] Rx#:[id number] propofoL 1,000 mg In 18.48 Empty Bag 1 bag @ Titrate IV .Q0M [facility] Rx#: [id number] Oral 1200 Output: Chest Tube Drainage 610 428 390 Chest Tube Left 120 118 40 Chest Tube Mediastinal 300 160 50 Chest Tube Right 190 150 300 Urine 2500 800 660 Estimated Blood Loss 1500 Other: Voiding Method Indwelling Catheter Indwelling Catheter Indwelling Catheter ABP, PAP, CO, CI - Last Documented Arterial Blood Pressure 115/50 Pulmonary Artery Pressure 21/10 Cardiac Output 5.7 Cardiac Index 2.4 - Exam CONSTITUTIONAL: Revealed 55-year-old white male in no distress. HEENT: [place], EOMI, anicteric, right IJ Cordis and Milford-Katie noted to be in plac e. RESPIRATORY: Symmetrical chest expansion, clear throughout no crackles or rhonchi or wheezes CARDIOVASCULAR: Normal S1 and S2, no S3 gallop, no murmur. GASTROINTESTINAL: Soft nontender no megaly no rebound no guarding. INTEGUMENTARY: No clubbing edema or cyanosis, NEUROLOGIC: Alert oriented 3 no gross focal deficits. MUSKULOSKELETAL: No deformities noted limitation range of motion PSYCHIATRIC: Normal mood affect and normal mental status examination. - Labs CBC & Chem 7: 07/27/21 05:00 07/27/21 05:00 Labs: Abnormal Lab Results - Last 24 Hours (Table) 07/25/21 07/26/21 07/26/21 Range/Units 06:30 08:49 11:37 WBC (3.8-10.6) k/uL RBC (4.30-5.90) m/uL Hgb (13.0-17.5) gm/dL Hct (39.0-53.0) % Plt Count (150-450) k/uL Neutrophils # (1.3-7.7) k/uL Lymphocytes # (1.0-4.8) k/uL APTT (22.0-30.0) sec ABG pCO2 46 H (35-45) mmHg ABG pO2 >420 H 381 H (83-108) mmHg ABG HCO3 26 H 27 H (21-25) mmol/L ABG Total CO2 27 H 29 H (19-24) mmol/L ABG O2 Saturation 100.0 H 100.0 H (94-97) % ABG Potassium (3.4-4.5) mmol/L ABG Ionized Calcium (4.5-5.3) mg/dL ABG Glucose 117 H 135 H (75-99) mg/dL Hemoglobin 12.9 L (13.0-17.5) gm/dL Sodium (137-145) mmol/L Chloride (98-107) mmol/L BUN (9-20) mg/dL Creatinine (0.66-1.25) mg/dL Glucose (74-99) mg/dL POC Glucose (mg/dL) (75-99) mg/dL Calcium (8.4-10.2) mg/dL Alkaline Phosphatase (38-126) U/L Total Protein (6.3-8.2) g/dL Albumin (3.5-5.0) g/dL Arterial Blood Potassium (3.4-4.5) mmol/L Arterial Blood Glucose 117 H 135 H (75-99) mg/dL Crossmatch See Detail 07/26/21 07/26/21 07/26/21 Range/Units 12:13 12:50 14:37 WBC (3.8-10.6) k/uL RBC (4.30-5.90) m/uL Hgb (13.0-17.5) gm/dL Hct (39.0-53.0) % Plt Count (150-450) k/uL Neutrophils # (1.3-7.7) k/uL Lymphocytes # (1.0-4.8) k/uL APTT (22.0-30.0) sec ABG pCO2 (35-45) mmHg ABG pO2 >420 H 316 H (83-108) mmHg ABG HCO3 26 H (21-25) mmol/L ABG Total CO2 27 H 27 H (19-24) mmol/L ABG O2 Saturation 100.0 H 100.0 H (94-97) % ABG Potassium 4.6 H (3.4-4.5) mmol/L ABG Ionized Calcium 4.1 L 4.2 L (4.5-5.3) mg/dL ABG Glucose 127 H 136 H (75-99) mg/dL Hemoglobin 11.0 L 12.4 L (13.0-17.5) gm/dL Sodium (137-145) mmol/L Chloride (98-107) mmol/L BUN (9-20) mg/dL Creatinine (0.66-1.25) mg/dL Glucose (74-99) mg/dL POC Glucose (mg/dL) 111 H (75-99) mg/dL Calcium (8.4-10.2) mg/dL Alkaline Phosphatase (38-126) U/L Total Protein (6.3-8.2) g/dL Albumin (3.5-5.0) g/dL Arterial Blood Potassium 4.6 H (3.4-4.5) mmol/L Arterial Blood Glucose 127 H 136 H (75-99) mg/dL Crossmatch 07/26/21 07/26/21 07/26/21 Range/Units 14:39 14:39 14:39 WBC (3.8-10.6) k/uL RBC 3.56 L (4.30-5.90) m/uL Hgb 11.9 L (13.0-17.5) gm/dL Hct 33.2 L (39.0-53.0) % Plt Count 109 L (150-450) k/uL Neutrophils # (1.3-7.7) k/uL Lymphocytes # (1.0-4.8) k/uL APTT 43.5 H (22.0-30.0) sec ABG pCO2 (35-45) mmHg ABG pO2 (83-108) mmHg ABG HCO3 (21-25) mmol/L ABG Total CO2 (19-24) mmol/L ABG O2 Saturation (94-97) % ABG Potassium (3.4-4.5) mmol/L ABG Ionized Calcium (4.5-5.3) mg/dL ABG Glucose (75-99) mg/dL Hemoglobin (13.0-17.5) gm/dL Sodium (137-145) mmol/L Chloride 109 H (98-107) mmol/L BUN 8 L (9-20) mg/dL Creatinine 0.55 L (0.66-1.25) mg/dL Glucose 110 H (74-99) mg/dL POC Glucose (mg/dL) (75-99) mg/dL Calcium 7.8 L (8.4-10.2) mg/dL Alkaline Phosphatase 37 L (38-126) U/L Total Protein 4.3 L (6.3-8.2) g/dL Albumin 2.3 L (3.5-5.0) g/dL Arterial Blood Potassium (3.4-4.5) mmol/L Arterial Blood Glucose (75-99) mg/dL Crossmatch 07/26/21 07/26/21 07/26/21 Range/Units 15:17 15:23 16:07 WBC (3.8-10.6) k/uL RBC (4.30-5.90) m/uL Hgb (13.0-17.5) gm/dL Hct (39.0-53.0) % Plt Count (150-450) k/uL Neutrophils # (1.3-7.7) k/uL Lymphocytes # (1.0-4.8) k/uL APTT (22.0-30.0) sec ABG pCO2 (35-45) mmHg ABG pO2 175 H (83-108) mmHg ABG HCO3 27 H (21-25) mmol/L ABG Total CO2 28 H (19-24) mmol/L ABG O2 Saturation 99.4 H (94-97) % ABG Potassium (3.4-4.5) mmol/L ABG Ionized Calcium (4.5-5.3) mg/dL ABG Glucose (75-99) mg/dL Hemoglobin (13.0-17.5) gm/dL Sodium (137-145) mmol/L Chloride (98-107) mmol/L BUN (9-20) mg/dL Creatinine (0.66-1.25) mg/dL Glucose (74-99) mg/dL POC Glucose (mg/dL) 113 H 158 H (75-99) mg/dL Calcium (8.4-10.2) mg/dL Alkaline Phosphatase (38-126) U/L Total Protein (6.3-8.2) g/dL Albumin (3.5-5.0) g/dL Arterial Blood Potassium (3.4-4.5) mmol/L Arterial Blood Glucose (75-99) mg/dL Crossmatch 07/26/21 07/26/21 07/26/21 Range/Units 17:04 17:30 18:07 WBC 11.0 H (3.8-10.6) k/uL RBC (4.30-5.90) m/uL Hgb (13.0-17.5) gm/dL Hct (39.0-53.0) % Plt Count 141 L (150-450) k/uL Neutrophils # 9.5 H (1.3-7.7) k/uL Lymphocytes # 0.9 L (1.0-4.8) k/uL APTT (22.0-30.0) sec ABG pCO2 (35-45) mmHg ABG pO2 (83-108) mmHg ABG HCO3 (21-25) mmol/L ABG Total CO2 (19-24) mmol/L ABG O2 Saturation (94-97) % ABG Potassium (3.4-4.5) mmol/L ABG Ionized Calcium (4.5-5.3) mg/dL ABG Glucose (75-99) mg/dL Hemoglobin (13.0-17.5) gm/dL Sodium (137-145) mmol/L Chloride (98-107) mmol/L BUN (9-20) mg/dL Creatinine (0.66-1.25) mg/dL Glucose (74-99) mg/dL POC Glucose (mg/dL) 184 H 160 H (75-99) mg/dL Calcium (8.4-10.2) mg/dL Alkaline Phosphatase (38-126) U/L Total Protein (6.3-8.2) g/dL Albumin (3.5-5.0) g/dL Arterial Blood Potassium (3.4-4.5) mmol/L Arterial Blood Glucose (75-99) mg/dL Crossmatch 07/26/21 07/26/21 07/26/21 Range/Units 18:18 18:59 20:00 WBC (3.8-10.6) k/uL RBC 3.99 L (4.30-5.90) m/uL Hgb (13.0-17.5) gm/dL Hct 37.8 L (39.0-53.0) % Plt Count 128 L (150-450) k/uL Neutrophils # 9.4 H (1.3-7.7) k/uL Lymphocytes # 0.5 L (1.0-4.8) k/uL APTT (22.0-30.0) sec ABG pCO2 48 H (35-45) mmHg ABG pO2 118 H (83-108) mmHg ABG HCO3 27 H (21-25) mmol/L ABG Total CO2 28 H (19-24) mmol/L ABG O2 Saturation 98.6 H (94-97) % ABG Potassium (3.4-4.5) mmol/L ABG Ionized Calcium (4.5-5.3) mg/dL ABG Glucose (75-99) mg/dL Hemoglobin (13.0-17.5) gm/dL Sodium (137-145) mmol/L Chloride (98-107) mmol/L BUN (9-20) mg/dL Creatinine (0.66-1.25) mg/dL Glucose (74-99) mg/dL POC Glucose (mg/dL) 142 H (75-99) mg/dL Calcium (8.4-10.2) mg/dL Alkaline Phosphatase (38-126) U/L Total Protein (6.3-8.2) g/dL Albumin (3.5-5.0) g/dL Arterial Blood Potassium (3.4-4.5) mmol/L Arterial Blood Glucose (75-99) mg/dL Crossmatch 07/26/21 07/26/21 07/26/21 Range/Units 20:04 21:07 22:07 WBC (3.8-10.6) k/uL RBC (4.30-5.90) m/uL Hgb (13.0-17.5) gm/dL Hct (39.0-53.0) % Plt Count (150-450) k/uL Neutrophils # (1.3-7.7) k/uL Lymphocytes # (1.0-4.8) k/uL APTT (22.0-30.0) sec ABG pCO2 (35-45) mmHg ABG pO2 (83-108) mmHg ABG HCO3 (21-25) mmol/L ABG Total CO2 (19-24) mmol/L ABG O2 Saturation (94-97) % ABG Potassium (3.4-4.5) mmol/L ABG Ionized Calcium (4.5-5.3) mg/dL ABG Glucose (75-99) mg/dL Hemoglobin (13.0-17.5) gm/dL Sodium (137-145) mmol/L Chloride (98-107) mmol/L BUN (9-20) mg/dL Creatinine (0.66-1.25) mg/dL Glucose (74-99) mg/dL POC Glucose (mg/dL) 116 H 124 H 135 H (75-99) mg/dL Calcium (8.4-10.2) mg/dL Alkaline Phosphatase (38-126) U/L Total Protein (6.3-8.2) g/dL Albumin (3.5-5.0) g/dL Arterial Blood Potassium (3.4-4.5) mmol/L Arterial Blood Glucose (75-99) mg/dL Crossmatch 07/26/21 07/27/21 07/27/21 Range/Units 23:11 00:11 02:15 WBC (3.8-10.6) k/uL RBC (4.30-5.90) m/uL Hgb (13.0-17.5) gm/dL Hct (39.0-53.0) % Plt Count (150-450) k/uL Neutrophils # (1.3-7.7) k/uL Lymphocytes # (1.0-4.8) k/uL APTT (22.0-30.0) sec ABG pCO2 (35-45) mmHg ABG pO2 (83-108) mmHg ABG HCO3 (21-25) mmol/L ABG Total CO2 (19-24) mmol/L ABG O2 Saturation (94-97) % ABG Potassium (3.4-4.5) mmol/L ABG Ionized Calcium (4.5-5.3) mg/dL ABG Glucose (75-99) mg/dL Hemoglobin (13.0-17.5) gm/dL Sodium (137-145) mmol/L Chloride (98-107) mmol/L BUN (9-20) mg/dL Creatinine (0.66-1.25) mg/dL Glucose (74-99) mg/dL POC Glucose (mg/dL) 139 H 134 H 139 H (75-99) mg/dL Calcium (8.4-10.2) mg/dL Alkaline Phosphatase (38-126) U/L Total Protein (6.3-8.2) g/dL Albumin (3.5-5.0) g/dL Arterial Blood Potassium (3.4-4.5) mmol/L Arterial Blood Glucose (75-99) mg/dL Crossmatch 07/27/21 07/27/21 07/27/21 Range/Units 03:02 04:56 05:00 WBC 11.1 H (3.8-10.6) k/uL RBC 3.89 L (4.30-5.90) m/uL Hgb 12.9 L (13.0-17.5) gm/dL Hct 36.7 L (39.0-53.0) % Plt Count 129 L (150-450) k/uL Neutrophils # 9.8 H (1.3-7.7) k/uL Lymphocytes # 0.6 L (1.0-4.8) k/uL APTT (22.0-30.0) sec ABG pCO2 (35-45) mmHg ABG pO2 (83-108) mmHg ABG HCO3 (21-25) mmol/L ABG Total CO2 (19-24) mmol/L ABG O2 Saturation (94-97) % ABG Potassium (3.4-4.5) mmol/L ABG Ionized Calcium (4.5-5.3) mg/dL ABG Glucose (75-99) mg/dL Hemoglobin (13.0-17.5) gm/dL Sodium (137-145) mmol/L Chloride (98-107) mmol/L BUN (9-20) mg/dL Creatinine (0.66-1.25) mg/dL Glucose (74-99) mg/dL POC Glucose (mg/dL) 132 H 128 H (75-99) mg/dL Calcium (8.4-10.2) mg/dL Alkaline Phosphatase (38-126) U/L Total Protein (6.3-8.2) g/dL Albumin (3.5-5.0) g/dL Arterial Blood Potassium (3.4-4.5) mmol/L Arterial Blood Glucose (75-99) mg/dL Crossmatch 07/27/21 07/27/21 07/27/21 Range/Units 05:00 06:15 07:06 WBC (3.8-10.6) k/uL RBC (4.30-5.90) m/uL Hgb (13.0-17.5) gm/dL Hct (39.0-53.0) % Plt Count (150-450) k/uL Neutrophils # (1.3-7.7) k/uL Lymphocytes # (1.0-4.8) k/uL APTT (22.0-30.0) sec ABG pCO2 (35-45) mmHg ABG pO2 (83-108) mmHg ABG HCO3 (21-25) mmol/L ABG Total CO2 (19-24) mmol/L ABG O2 Saturation (94-97) % ABG Potassium (3.4-4.5) mmol/L ABG Ionized Calcium (4.5-5.3) mg/dL ABG Glucose (75-99) mg/dL Hemoglobin (13.0-17.5) gm/dL Sodium 132 L (137-145) mmol/L Chloride (98-107) mmol/L BUN (9-20) mg/dL Creatinine 0.54 L (0.66-1.25) mg/dL Glucose 127 H (74-99) mg/dL POC Glucose (mg/dL) 135 H 153 H (75-99) mg/dL Calcium 8.1 L (8.4-10.2) mg/dL Alkaline Phosphatase (38-126) U/L Total Protein 5.4 L (6.3-8.2) g/dL Albumin 3.2 L (3.5-5.0) g/dL Arterial Blood Potassium (3.4-4.5) mmol/L Arterial Blood Glucose (75-99) mg/dL Crossmatch 07/27/21 Range/Units 10:45 WBC (3.8-10.6) k/uL RBC (4.30-5.90) m/uL Hgb (13.0-17.5) gm/dL Hct (39.0-53.0) % Plt Count (150-450) k/uL Neutrophils # (1.3-7.7) k/uL Lymphocytes # (1.0-4.8) k/uL APTT (22.0-30.0) sec ABG pCO2 (35-45) mmHg ABG pO2 (83-108) mmHg ABG HCO3 (21-25) mmol/L ABG Total CO2 (19-24) mmol/L ABG O2 Saturation (94-97) % ABG Potassium (3.4-4.5) mmol/L ABG Ionized Calcium (4.5-5.3) mg/dL ABG Glucose (75-99) mg/dL Hemoglobin (13.0-17.5) gm/dL Sodium (137-145) mmol/L Chloride (98-107) mmol/L BUN (9-20) mg/dL Creatinine (0.66-1.25) mg/dL Glucose (74-99) mg/dL POC Glucose (mg/dL) 141 H (75-99) mg/dL Calcium (8.4-10.2) mg/dL Alkaline Phosphatase (38-126) U/L Total Protein (6.3-8.2) g/dL Albumin (3.5-5.0) g/dL Arterial Blood Potassium (3.4-4.5) mmol/L Arterial Blood Glucose (75-99) mg/dL Crossmatch Assessment and Plan Assessment: 1 Exertional dyspnea and chest tightness and a patient found to have significant coronary artery disease including 70% stenosis of the distal left main and 90% stenosis of the proximal LAD status post CABG postoperative day #1. 2 Hyperlipidemia 3 Hypertension 4 Lifelong nonsmoker, FEV1 89% of predicted 5 Daily alcohol use 6 History of proximal atrial fibrillation status post ablation in 2012 Recommendation: Continue aspirin statins and Plavix beta blockers Continue incentive spirometry. Ambulate and increase activity as tolerated. Continue to monitor daily x-rays of the chest. Continue pain control. Discontinue unnecessary catheters. And lites. Continue CIWA protocol. We will continue to follow. Time with Patient: Less than 30
[2021-07-27 14:45] LABS: Glucose,Whole Blood 113 mg/dL (75-99)
--- NOTE | 2021-07-27 15:29 | P.PN ---
Subjective Patient has been extubated. His chest tubes are out he is postop day 1 He is sitting up in a chair he is alert and oriented talking minimal discomfort He is using his incentive spirometer very well Breath sounds are equal bilaterally no rhonchi no crackles Heart sounds S1 and S2 are soft and normal Rhythm is regular No lower extremity edema No respiratory distress Pulse rate in the 70s, respirations 16 and blood pressure 115/50 mmHg Impression left main distal coronary artery disease, occlusive and extending into the proximal LAD and into the proximal circumflex Status post coronary artery bypass grafting R TRACEY to the LAD and MARTÍNEZ to the obtuse marginal/ramus intermedius Exclusion of the left atrial appendage Plan Dual antiplatelet therapy, atorvastatin 80 mg by mouth daily and continue beta blockers Objective - Vital Signs Vital signs: Vital Signs Temp 99.5 F 07/27/21 08:00 Pulse 72 07/27/21 11:40 Resp 18 07/27/21 11:40 BP 126/82 07/26/21 06:10 Pulse Ox 96 07/27/21 10:30 Intake & Output 07/26/21 07/27/21 07/27/21 18:59 06:59 18:59 Intake Total 734.009 5423.829 284.214 Output Total 4610 1228 1050 Balance -4070.007 1243.829 -765.786 Weight 66 kg 105.1 kg Intake: IV 449 1258 266 .9 NS pressure bag 36 108 36 ACETAMINOPHEN IV (For NPO 100 100 ) 1,000 mg In Empty Bag 1 bag @ 400 mls/hr IVPB Q6HR [facility] Rx#:[id number] Albumin Human 5% 250 ml 250 In Empty Bag 1 bag @ 250 mls/hr IVPB Q1HR PRN Rx#: [id number] CO/CI 60 180 Sodium Chloride 0.9% 1, 200 570 180 000 ml @ 50 mls/hr IV . Q20H [facility] Rx#:[id number] ceFAZolin 2 gm In Sodium 50 50 Chloride 0.9% 50 ml @ 100 mls/hr IVPB Q8HR [facility] Rx# :[id number] Intake, IV Titration 90.993 13.829 18.214 Amount Clevidipine Butyrate 25 50.000 mg In Empty Bag 1 bag @ 1 MG/HR 2 mls/hr IV .Q24H [facility] Rx#:[id number] Dexmedetomidine/0.9% NaCl 21.175 (Pmx) 400 mcg In Empty Bag 1 bag @ Titrate IV . Q0M [facility] Rx#:[id number] Insulin Regular 100 unit 1.338 13.829 18.214 In Sodium Chloride 0.9% 100 ml @ Per Protocol IV .Q0M [facility] Rx#:[id number] propofoL 1,000 mg In 18.48 Empty Bag 1 bag @ Titrate IV .Q0M [facility] Rx#: [id number] Oral 1200 Output: Chest Tube Drainage 610 428 390 Chest Tube Left 120 118 40 Chest Tube Mediastinal 300 160 50 Chest Tube Right 190 150 300 Urine 2500 800 660 Estimated Blood Loss 1500 Other: Voiding Method Indwelling Catheter Indwelling Catheter Indwelling Catheter ABP, PAP, CO, CI - Last Documented Arterial Blood Pressure 115/50 Pulmonary Artery Pressure 21/10 Cardiac Output 5.7 Cardiac Index 2.4 - Labs CBC & Chem 7: 07/27/21 05:00 07/27/21 05:00 Labs: Abnormal Lab Results - Last 24 Hours (Table) 07/25/21 07/26/21 07/26/21 Range/Units 06:30 15:17 16:07 WBC (3.8-10.6) k/uL RBC (4.30-5.90) m/uL Hgb (13.0-17.5) gm/dL Hct (39.0-53.0) % Plt Count (150-450) k/uL Neutrophils # (1.3-7.7) k/uL Lymphocytes # (1.0-4.8) k/uL ABG pCO2 (35-45) mmHg ABG pO2 175 H (83-108) mmHg ABG HCO3 27 H (21-25) mmol/L ABG Total CO2 28 H (19-24) mmol/L ABG O2 Saturation 99.4 H (94-97) % Sodium (137-145) mmol/L Creatinine (0.66-1.25) mg/dL Glucose (74-99) mg/dL POC Glucose (mg/dL) 158 H (75-99) mg/dL Calcium (8.4-10.2) mg/dL Total Protein (6.3-8.2) g/dL Albumin (3.5-5.0) g/dL Crossmatch See Detail 07/26/21 07/26/2107/26/21 Range/Units 17:04 17:30 18:07 WBC 11.0 H (3.8-10.6) k/uL RBC (4.30-5.90) m/uL Hgb (13.0-17.5) gm/dL Hct (39.0-53.0) % Plt Count 141 L (150-450) k/uL Neutrophils # 9.5 H (1.3-7.7) k/uL Lymphocytes # 0.9 L (1.0-4.8) k/uL ABG pCO2 (35-45) mmHg ABG pO2 (83-108) mmHg ABG HCO3 (21-25) mmol/L ABG Total CO2 (19-24) mmol/L ABG O2 Saturation (94-97) % Sodium (137-145) mmol/L Creatinine (0.66-1.25) mg/dL Glucose (74-99) mg/dL POC Glucose (mg/dL) 184 H 160 H (75-99) mg/dL Calcium (8.4-10.2) mg/dL Total Protein (6.3-8.2) g/dL Albumin (3.5-5.0) g/dL Crossmatch 07/26/21 07/26/21 07/26/21 Range/Units 18:18 18:59 20:00 WBC (3.8-10.6) k/uL RBC 3.99 L (4.30-5.90) m/uL Hgb (13.0-17.5) gm/dL Hct 37.8 L (39.0-53.0) % Plt Count 128 L (150-450) k/uL Neutrophils # 9.4 H (1.3-7.7) k/uL Lymphocytes # 0.5 L (1.0-4.8) k/uL ABG pCO2 48 H (35-45) mmHg ABG pO2 118 H (83-108) mmHg ABG HCO3 27 H (21-25) mmol/L ABG Total CO2 28 H (19-24) mmol/L ABG O2 Saturation 98.6 H (94-97) % Sodium (137-145) mmol/L Creatinine (0.66-1.25) mg/dL Glucose (74-99) mg/dL POC Glucose (mg/dL) 142 H (75-99) mg/dL Calcium (8.4-10.2) mg/dL Total Protein (6.3-8.2) g/dL Albumin (3.5-5.0) g/dL Crossmatch 07/26/21 07/26/21 07/26/21 Range/Units 20:04 21:07 22:07 WBC (3.8-10.6) k/uL RBC (4.30-5.90) m/uL Hgb (13.0-17.5) gm/dL Hct (39.0-53.0) % Plt Count (150-450) k/uL Neutrophils # (1.3-7.7) k/uL Lymphocytes # (1.0-4.8) k/uL ABG pCO2 (35-45) mmHg ABG pO2 (83-108) mmHg ABG HCO3 (21-25) mmol/L ABG Total CO2 (19-24) mmol/L ABG O2 Saturation (94-97) % Sodium (137-145) mmol/L Creatinine (0.66-1.25) mg/dL Glucose (74-99) mg/dL POC Glucose (mg/dL) 116 H 124 H 135 H (75-99) mg/dL Calcium (8.4-10.2) mg/dL Total Protein (6.3-8.2) g/dL Albumin (3.5-5.0) g/dL Crossmatch 07/26/21 07/27/21 07/27/21 Range/Units 23:11 00:11 02:15 WBC (3.8-10.6) k/uL RBC (4.30-5.90) m/uL Hgb (13.0-17.5) gm/dL Hct (39.0-53.0) % Plt Count (150-450) k/uL Neutrophils # (1.3-7.7) k/uL Lymphocytes # (1.0-4.8) k/uL ABG pCO2 (35-45) mmHg ABG pO2 (83-108) mmHg ABG HCO3 (21-25) mmol/L ABG Total CO2 (19-24) mmol/L ABG O2 Saturation (94-97) % Sodium (137-145) mmol/L Creatinine (0.66-1.25) mg/dL Glucose (74-99) mg/dL POC Glucose (mg/dL) 139 H 134 H 139 H (75-99) mg/dL Calcium (8.4-10.2) mg/dL Total Protein (6.3-8.2) g/dL Albumin (3.5-5.0) g/dL Crossmatch 07/27/21 07/27/21 07/27/21 Range/Units 03:02 04:56 05:00 WBC 11.1 H (3.8-10.6) k/uL RBC 3.89 L (4.30-5.90) m/uL Hgb 12.9 L (13.0-17.5) gm/dL Hct 36.7 L (39.0-53.0) % Plt Count 129 L (150-450) k/uL Neutrophils # 9.8 H (1.3-7.7) k/uL Lymphocytes # 0.6 L (1.0-4.8) k/uL ABG pCO2 (35-45) mmHg ABG pO2 (83-108) mmHg ABG HCO3 (21-25) mmol/L ABG Total CO2 (19-24) mmol/L ABG O2 Saturation (94-97) % Sodium (137-145) mmol/L Creatinine (0.66-1.25) mg/dL Glucose (74-99) mg/dL POC Glucose (mg/dL) 132 H 128 H (75-99) mg/dL Calcium (8.4-10.2) mg/dL Total Protein (6.3-8.2) g/dL Albumin (3.5-5.0) g/dL Crossmatch 07/27/21 07/27/21 07/27/21 Range/Units 05:00 06:15 07:06 WBC (3.8-10.6) k/uL RBC (4.30-5.90) m/uL Hgb (13.0-17.5) gm/dL Hct (39.0-53.0) % Plt Count (150-450) k/uL Neutrophils # (1.3-7.7) k/uL Lymphocytes # (1.0-4.8) k/uL ABG pCO2 (35-45) mmHg ABG pO2 (83-108) mmHg ABG HCO3 (21-25) mmol/L ABG Total CO2 (19-24) mmol/L ABG O2 Saturation (94-97) % Sodium 132 L (137-145) mmol/L Creatinine 0.54 L (0.66-1.25) mg/dL Glucose 127 H (74-99) mg/dL POC Glucose (mg/dL) 135 H 153 H (75-99) mg/dL Calcium 8.1 L (8.4-10.2) mg/dL Total Protein 5.4 L (6.3-8.2) g/dL Albumin 3.2 L (3.5-5.0) g/dL Crossmatch 07/27/21 07/27/21 Range/Units 10:45 14:43 WBC (3.8-10.6) k/uL RBC (4.30-5.90) m/uL Hgb (13.0-17.5) gm/dL Hct (39.0-53.0) % Plt Count (150-450) k/uL Neutrophils # (1.3-7.7) k/uL Lymphocytes # (1.0-4.8) k/uL ABG pCO2 (35-45) mmHg ABG pO2 (83-108) mmHg ABG HCO3 (21-25) mmol/L ABG Total CO2 (19-24) mmol/L ABG O2 Saturation (94-97) % Sodium (137-145) mmol/L Creatinine (0.66-1.25) mg/dL Glucose (74-99) mg/dL POC Glucose (mg/dL) 141 H 113 H (75-99) mg/dL Calcium (8.4-10.2) mg/dL Total Protein (6.3-8.2) g/dL Albumin (3.5-5.0) g/dL Crossmatch
[2021-07-27] MEDS: NITROGLYCERIN-D5W PMX 50 MG in DEXTROSE/WATER 1 250ML.BAG IV SCH (17:23)
[2021-07-27] MEDS: ACETAMINOPHEN TAB 500 MG TAB PO PRN (17:52)
[2021-07-27 18:53] LABS: Glucose,Whole Blood 148 mg/dL (75-99)
[2021-07-27] MEDS ORDERED: MORPHINE SULFATE 2 MG/ML SYRINGE IVP STA (19:02)
[2021-07-27 20:42] LABS: Glucose,Whole Blood 127 mg/dL (75-99)
--- NOTE | 2021-07-27 20:50 | P.PN ---
Subjective This is a pleasant 55 years old male with past medical history of paroxysmal atrial fibrillation status post ablation, hypertension, hyperlipidemia. Alcohol abuse. Patient had cardiac cath yesterday with Dr. Luis showed significant coronary artery disease with 70% stenosis of the left main artery and 90% of the LAD. Patient admitted and evaluated by cardiothoracic surgery for bypass procedure this coming Thursday 07/26. Patient currently lying in bed comfortable, he says he has mild chest discomfort and dyspnea. No other complaints. No abdominal pain. No diarrhea. No dysuria. No fever. Vitals are stable. Labs are unremarkable including CBC, BMP, liver enzymes and INR. Patient drink 6 years per day and he is already on CIWA protocol maintained 07/25/2021 patient Is sitting up in bed comfortably. No chest pain or dyspnea. No other complaints Labs and vitals are stable Continue with aspirin, metoprolol, CIWA protocol, no signs of local withdrawal Patient is going for bypass surgery tomorrow 07/26/2021 Pressure undergoing vascular surgery for his coronary artery disease for planned bypass today, after that he will be moved to the intensive care unit we will continue to follow Vitals and labs are reviewed, unremarkable and stable this morning 07/27/2021 Patient with no specific complaint is status post coronary artery bypass grafting. Eating his diet with no dyspnea. Minimal chest pain at surgical site inspected. Constipated. Vitals are stable. His continued with aspirin, Plavix and metoprolol as well as statin. Objective - Vital Signs Vital signs: Vital Signs Temp 99.5 F 07/27/21 08:00 Pulse 72 07/27/21 11:40 Resp 18 07/27/21 11:40 BP 126/82 07/26/21 06:10 Pulse Ox 96 07/27/21 10:30 Intake & Output 07/26/21 07/27/21 07/27/21 18:59 06:59 18:59 Intake Total 828.382 1783.829 284.214 Output Total 4610 1228 1050 Balance -4070.007 1243.829 -765.786 Weight 66 kg 105.1 kg Intake: IV 449 1258 266 .9 NS pressure bag 36 108 36 ACETAMINOPHEN IV (For NPO 100 100 ) 1,000 mg In Empty Bag 1 bag @ 400 mls/hr IVPB Q6HR [facility] Rx#:[id number] Albumin Human 5% 250 ml 250 In Empty Bag 1 bag @ 250 mls/hr IVPB Q1HR PRN Rx#: [id number] CO/CI 60 180 Sodium Chloride 0.9% 1, 200 570 180 000 ml @ 50 mls/hr IV . Q20H [facility] Rx#:[id number] ceFAZolin 2 gm In Sodium 50 50 Chloride 0.9% 50 ml @ 100 mls/hr IVPB Q8HR [facility] Rx# :[id number] Intake, IV Titration 90.993 13.829 18.214 Amount Clevidipine Butyrate 25 50.000 mg In Empty Bag 1 bag @ 1 MG/HR 2 mls/hr IV .Q24H [facility] Rx#:[id number] Dexmedetomidine/0.9% NaCl 21.175 (Pmx) 400 mcg In Empty Bag 1 bag @ Titrate IV . Q0M [facility] Rx#:[id number] Insulin Regular 100 unit 1.338 13.829 18.214 In Sodium Chloride 0.9% 100 ml @ Per Protocol IV .Q0M [facility] Rx#:[id number] propofoL 1,000 mg In 18.48 Empty Bag 1 bag @ Titrate IV .Q0M [facility] Rx#: [id number] Oral 1200 Output: Chest Tube Drainage 610 428 390 Chest Tube Left 120 118 40 Chest Tube Mediastinal 300 160 50 Chest Tube Right 190 150 300 Urine 2500 800 660 Estimated Blood Loss 1500 Other: Voiding Method Indwelling Catheter Indwelling Catheter Indwelling Catheter ABP, PAP, CO, CI - Last Documented Arterial Blood Pressure 115/50 Pulmonary Artery Pressure 21/10 Cardiac Output 5.7 Cardiac Index 2.4 - Exam GENERAL: The patient is alert and oriented x3, not in any acute distress. Well developed, well nourished. HEENT: Pupils are round and equally reacting to light. EOMI. No scleral icterus. No conjunctival pallor. Normocephalic, atraumatic. No pharyngeal erythema. No thyromegaly. CARDIOVASCULAR: S1 and S2 present. No murmurs, rubs, or gallops. PULMONARY: Chest is clear to auscultation, no wheezing or crackles. ABDOMEN: Soft, nontender, nondistended, normoactive bowel sounds. No palpable organomegaly. MUSCULOSKELETAL: No joint swelling or deformity. EXTREMITIES: No cyanosis, clubbing, or pedal edema. NEUROLOGICAL: Gross neurological examination did not reveal any focal deficits. SKIN: No rashes. no petechiae. - Labs CBC & Chem 7: 07/27/21 05:00 07/27/21 05:00 Labs: Abnormal Lab Results - Last 24 Hours (Table) 07/25/21 07/26/21 07/26/21 Range/Units 06:30 14:37 14:39 WBC (3.8-10.6) k/uL RBC 3.56 L (4.30-5.90) m/uL Hgb 11.9 L (13.0-17.5) gm/dL Hct 33.2 L (39.0-53.0) % Plt Count 109 L (150-450) k/uL Neutrophils # (1.3-7.7) k/uL Lymphocytes # (1.0-4.8) k/uL APTT (22.0-30.0) sec ABG pCO2 (35-45) mmHg ABG pO2 (83-108) mmHg ABG HCO3 (21-25) mmol/L ABG Total CO2 (19-24) mmol/L ABG O2 Saturation (94-97) % Sodium (137-145) mmol/L Chloride (98-107) mmol/L BUN (9-20) mg/dL Creatinine (0.66-1.25) mg/dL Glucose (74-99) mg/dL POC Glucose (mg/dL) 111 H (75-99) mg/dL Calcium (8.4-10.2) mg/dL Alkaline Phosphatase (38-126) U/L Total Protein (6.3-8.2) g/dL Albumin (3.5-5.0) g/dL Crossmatch See Detail 07/26/21 07/26/21 07/26/21 Range/Units 14:39 14:39 15:17 WBC (3.8-10.6) k/uL RBC (4.30-5.90) m/uL Hgb (13.0-17.5) gm/dL Hct (39.0-53.0) % Plt Count (150-450) k/uL Neutrophils # (1.3-7.7) k/uL Lymphocytes # (1.0-4.8) k/uL APTT 43.5 H (22.0-30.0) sec ABG pCO2 (35-45) mmHg ABG pO2 175 H (83-108) mmHg ABG HCO3 27 H (21-25) mmol/L ABG Total CO2 28 H (19-24) mmol/L ABG O2 Saturation 99.4 H (94-97) % Sodium (137-145) mmol/L Chloride 109 H (98-107) mmol/L BUN 8 L (9-20) mg/dL Creatinine 0.55 L (0.66-1.25) mg/dL Glucose 110 H (74-99) mg/dL POC Glucose (mg/dL) (75-99) mg/dL Calcium 7.8 L (8.4-10.2) mg/dL Alkaline Phosphatase 37 L (38-126) U/L Total Protein 4.3 L (6.3-8.2) g/dL Albumin 2.3 L (3.5-5.0) g/dL Crossmatch 07/26/21 07/26/21 07/26/21 Range/Units 15:23 16:07 17:04 WBC (3.8-10.6) k/uL RBC (4.30-5.90) m/uL Hgb (13.0-17.5) gm/dL Hct (39.0-53.0) % Plt Count (150-450) k/uL Neutrophils # (1.3-7.7) k/uL Lymphocytes # (1.0-4.8) k/uL APTT (22.0-30.0) sec ABG pCO2 (35-45) mmHg ABG pO2 (83-108) mmHg ABG HCO3 (21-25) mmol/L ABG Total CO2 (19-24) mmol/L ABG O2 Saturation (94-97) % Sodium (137-145) mmol/L Chloride (98-107) mmol/L BUN (9-20) mg/dL Creatinine (0.66-1.25) mg/dL Glucose (74-99) mg/dL POC Glucose (mg/dL) 113 H 158 H 184 H (75-99) mg/dL Calcium (8.4-10.2) mg/dL Alkaline Phosphatase (38-126) U/L Total Protein (6.3-8.2) g/dL Albumin (3.5-5.0) g/dL Crossmatch 07/26/21 07/26/21 07/26/21 Range/Units 17:30 18:07 18:18 WBC 11.0 H (3.8-10.6) k/uL RBC (4.30-5.90) m/uL Hgb (13.0-17.5) gm/dL Hct (39.0-53.0) % Plt Count 141 L (150-450) k/uL Neutrophils # 9.5 H (1.3-7.7) k/uL Lymphocytes # 0.9 L (1.0-4.8) k/uL APTT (22.0-30.0) sec ABG pCO2 48 H (35-45) mmHg ABG pO2 118 H (83-108) mmHg ABG HCO3 27 H (21-25) mmol/L ABG Total CO2 28 H (19-24) mmol/L ABG O2 Saturation 98.6 H (94-97) % Sodium (137-145) mmol/L Chloride (98-107) mmol/L BUN (9-20) mg/dL Creatinine (0.66-1.25) mg/dL Glucose (74-99) mg/dL POC Glucose (mg/dL) 160 H (75-99) mg/dL Calcium (8.4-10.2) mg/dL Alkaline Phosphatase (38-126) U/L Total Protein (6.3-8.2) g/dL Albumin (3.5-5.0) g/dL Crossmatch 07/26/21 07/26/21 07/26/21 Range/Units 18:59 20:00 20:04 WBC (3.8-10.6) k/uL RBC 3.99 L (4.30-5.90) m/uL Hgb (13.0-17.5) gm/dL Hct 37.8 L (39.0-53.0) % Plt Count 128 L (150-450) k/uL Neutrophils # 9.4 H (1.3-7.7) k/uL Lymphocytes # 0.5 L (1.0-4.8) k/uL APTT (22.0-30.0) sec ABG pCO2 (35-45) mmHg ABG pO2 (83-108) mmHg ABG HCO3 (21-25) mmol/L ABG Total CO2 (19-24) mmol/L ABG O2 Saturation (94-97) % Sodium (137-145) mmol/L Chloride (98-107) mmol/L BUN (9-20) mg/dL Creatinine (0.66-1.25) mg/dL Glucose (74-99) mg/dL POC Glucose (mg/dL) 142 H 116 H (75-99) mg/dL Calcium (8.4-10.2) mg/dL Alkaline Phosphatase (38-126) U/L Total Protein (6.3-8.2) g/dL Albumin (3.5-5.0) g/dL Crossmatch 07/26/21 07/26/21 07/26/21 Range/Units 21:07 22:07 23:11 WBC (3.8-10.6) k/uL RBC (4.30-5.90) m/uL Hgb (13.0-17.5) gm/dL Hct (39.0-53.0) % Plt Count (150-450) k/uL Neutrophils # (1.3-7.7) k/uL Lymphocytes # (1.0-4.8) k/uL APTT (22.0-30.0) sec ABG pCO2 (35-45) mmHg ABG pO2 (83-108) mmHg ABG HCO3 (21-25) mmol/L ABG Total CO2 (19-24) mmol/L ABG O2 Saturation (94-97) % Sodium (137-145) mmol/L Chloride (98-107) mmol/L BUN (9-20) mg/dL Creatinine (0.66-1.25) mg/dL Glucose (74-99) mg/dL POC Glucose (mg/dL) 124 H 135 H 139 H (75-99) mg/dL Calcium (8.4-10.2) mg/dL Alkaline Phosphatase (38-126) U/L Total Protein (6.3-8.2) g/dL Albumin (3.5-5.0) g/dL Crossmatch 07/27/21 07/27/21 07/27/21 Range/Units 00:11 02:15 03:02 WBC (3.8-10.6) k/uL RBC (4.30-5.90) m/uL Hgb (13.0-17.5) gm/dL Hct (39.0-53.0) % Plt Count (150-450) k/uL Neutrophils # (1.3-7.7) k/uL Lymphocytes # (1.0-4.8) k/uL APTT (22.0-30.0) sec ABG pCO2 (35-45) mmHg ABG pO2 (83-108) mmHg ABG HCO3 (21-25) mmol/L ABG Total CO2 (19-24) mmol/L ABG O2 Saturation (94-97) % Sodium (137-145) mmol/L Chloride (98-107) mmol/L BUN (9-20) mg/dL Creatinine (0.66-1.25) mg/dL Glucose (74-99) mg/dL POC Glucose (mg/dL) 134 H 139 H 132 H (75-99) mg/dL Calcium (8.4-10.2) mg/dL Alkaline Phosphatase (38-126) U/L Total Protein (6.3-8.2) g/dL Albumin (3.5-5.0) g/dL Crossmatch 07/27/21 07/27/21 07/27/21 Range/Units 04:56 05:00 05:00 WBC 11.1 H (3.8-10.6) k/uL RBC 3.89 L (4.30-5.90) m/uL Hgb 12.9 L (13.0-17.5) gm/dL Hct 36.7 L (39.0-53.0) % Plt Count 129 L (150-450) k/uL Neutrophils # 9.8 H (1.3-7.7) k/uL Lymphocytes # 0.6 L (1.0-4.8) k/uL APTT (22.0-30.0) sec ABG pCO2 (35-45) mmHg ABG pO2 (83-108) mmHg ABG HCO3 (21-25) mmol/L ABG Total CO2 (19-24) mmol/L ABG O2 Saturation (94-97) % Sodium 132 L (137-145) mmol/L Chloride (98-107) mmol/L BUN (9-20) mg/dL Creatinine 0.54 L (0.66-1.25) mg/dL Glucose 127 H (74-99) mg/dL POC Glucose (mg/dL) 128 H (75-99) mg/dL Calcium 8.1 L (8.4-10.2) mg/dL Alkaline Phosphatase (38-126) U/L Total Protein 5.4 L (6.3-8.2) g/dL Albumin 3.2 L (3.5-5.0) g/dL Crossmatch 07/27/21 07/27/21 07/27/21 Range/Units 06:15 07:06 10:45 WBC (3.8-10.6) k/uL RBC (4.30-5.90) m/uL Hgb (13.0-17.5) gm/dL Hct (39.0-53.0) % Plt Count (150-450) k/uL Neutrophils # (1.3-7.7) k/uL Lymphocytes # (1.0-4.8) k/uL APTT (22.0-30.0) sec ABG pCO2 (35-45) mmHg ABG pO2 (83-108) mmHg ABG HCO3 (21-25) mmol/L ABG Total CO2 (19-24) mmol/L ABG O2 Saturation (94-97) % Sodium (137-145) mmol/L Chloride (98-107) mmol/L BUN (9-20) mg/dL Creatinine (0.66-1.25) mg/dL Glucose (74-99) mg/dL POC Glucose (mg/dL) 135 H 153 H 141 H (75-99) mg/dL Calcium (8.4-10.2) mg/dL Alkaline Phosphatase (38-126) U/L Total Protein (6.3-8.2) g/dL Albumin (3.5-5.0) g/dL Crossmatch Assessment and Plan Assessment: coronary artery disease with stenosis of left main artery 70%, and LAD 90%, status post bypass surgery on 07/26. Paroxysmal atrial fibrillation status post ablation, not on anticoagulation Alcohol abuse at-risk of alcohol withdrawal Hypertension Hyperlipidemia Plan: This is a pleasant 55 years old male with significant coronary artery disease scheduled for bypass on Thursday 07/26 Continue with aspirin and Plavix and add metoprolol and statin status post Continue with CIWA protocol and a mean Several consultants on the case including cardiology and cardiothoracic surgery and pulmonary Labs and medication were reviewed.. Continue same treatment. Continue with symptomatic treatment. Resume home medication. Monitor lytes and vitals. DVT and GI prophylaxis. Further recommendations as per clinical course of the patient DVT prophylaxis: Subcutaneous heparin Lovenox GI Prophylaxis: Ppi Prognosis is guarded
[2021-07-27] MEDS: SENNOSIDES-DOCUSATE SODIUM 1 EACH TAB PO SCH (20:55)
[2021-07-27] MEDS ORDERED: traMADol 50 MG TAB PO SCH (22:00)
[2021-07-27] MEDS ORDERED: HYDROcodone/APAP 7.5-325MG 1 EACH TAB PO PRN (22:55)
[2021-07-27 23:19] LABS: Glucose,Whole Blood 119 mg/dL (75-99)
[2021-07-28 03:27] LABS: Glucose,Whole Blood 110 mg/dL (75-99)
[2021-07-28 05:07] LABS: Glucose,Whole Blood 117 mg/dL (75-99)
[2021-07-28 05:38] LABS: Basophils % (A) 0 %; Eosinophils # (A) 0.1 k/uL (0-0.7); Eosinophils % (A) 1 %; HGB 11.2 gm/dL (13.0-17.5); Lymphocytes # (A) 0.8 k/uL (1.0-4.8); Lymphocytes % (A) 9 %; MCH 33.3 pg (25.0-35.0); MCHC 35.1 g/dL (31.0-37.0); Mean Platelet Volume 8.6; Monocytes # (A) 0.7 k/uL (0-1.0); Monocytes % (A) 8 %; Neutrophils # (A) 7.4 k/uL (1.3-7.7); Neutrophils % (A) 81 %; Platelet Count 114 k/uL (150-450); RBC 3.36 m/uL (4.30-5.90); RDW 12.2 % (11.5-15.5); WBC 9.1 k/uL (3.8-10.6)
[2021-07-28 05:49] LABS: Ionized Calcium 4.6 mg/dL (4.5-5.3)
[2021-07-28 05:59] LABS: ALT 18 U/L (4-49); AST 35 U/L (17-59); African American GFR (CKD) >90 (>60 ml/min/1.73 sqM); Alkaline Phosphatase 60 U/L (38-126); Anion Gap 4 mmol/L; Blood Urea Nitrogen 14 mg/dL (9-20); Calcium 8.2 mg/dL (8.4-10.2); Carbon Dioxide 26 mmol/L (22-30); Chloride 102 mmol/L (98-107); Glucose 115 mg/dL (74-99); Magnesium 2.2 mg/dL (1.6-2.3); Non-African American GFR(CKD) >90 (>60 ml/min/1.73 sqM); Potassium 3.9 mmol/L (3.5-5.1); Sodium 132 mmol/L (137-145); Total Bilirubin 1.3 mg/dL (0.2-1.3); Total Protein 5.2 g/dL (6.3-8.2)
[2021-07-28] MEDS: KETOROLAC 15 MG/ML 1 ML VIAL IVP SCH ×3 (06:58→20:30)
[2021-07-28] MEDS ORDERED: POTASSIUM CHLORIDE ER 20 MEQ TAB.ER PO SCH (07:00)
[2021-07-28 07:17] LABS: Glucose,Whole Blood 125 mg/dL (75-99)
--- NOTE | 2021-07-28 07:25 | XR ---
EXAMINATION TYPE: XR chest 1V portable DATE OF EXAM: 07/28/2021 COMPARISON: Chest x-ray 07/27/2021 HISTORY: Postop coronary artery bypass graft TECHNIQUE: Single frontal view of the chest is obtained. FINDINGS: Central venous catheter has been removed, central venous sheath remains in place over the jugular distribution on the right. Patient is post median sternotomy and left atrial appendage clip p lacement. The left-sided chest tube and right-sided chest tubes have been removed, median sternal melanie in no longer seen. No evident pneumothorax or sizable pleural effusion, minimal blunting of the right costophrenic angle noted. Minimal patchy basilar density noted within the lungs. Cardiac mediastinal silhouette shows a stable appearance. IMPRESSION: Interval tube removal, basilar atelectasis, difficult to exclude minimal pleural fluid o n the right.
[2021-07-28] MEDS: IPRATROPIUM-ALBUTEROL 3 ML NEB INHALATION SCH ×4 (08:05→20:11)
[2021-07-28] MEDS: SODIUM CHLORIDE 0.9% 1,000 ML IV SCH (08:06)
[2021-07-28] MEDS: ASPIRIN 325 MG TAB PO SCH (08:06)
[2021-07-28] MEDS: CLOPIDOGREL 75 MG TAB PO SCH (08:07)
[2021-07-28] MEDS: THIAMINE 100 MG TAB PO SCH ×2 (08:07→17:57)
[2021-07-28] MEDS: ATORVASTATIN 80 MG TAB PO SCH (08:07)
[2021-07-28] MEDS: PANTOPRAZOLE 40 MG TABLET PO SCH (08:08)
[2021-07-28] MEDS: HEPARIN SODIUM,PORCINE/PF 5,000 UNIT/0.5 ML SYRINGE SQ SCH ×2 (08:10→15:26)
[2021-07-28] MEDS: METOPROLOL TARTRATE 25 MG TAB PO SCH ×2 (08:10→20:29)
[2021-07-28] MEDS: AMIODARONE 200 MG TAB PO SCH ×2 (08:10→20:29)
[2021-07-28] MEDS: MUPIROCIN 2% OINT 22 GM TUBE NASAL SCH ×2 (08:14→20:30)
[2021-07-28] MEDS ORDERED: FUROSEMIDE 10 MG/ML 2 ML VIAL IV STA (09:47)
--- NOTE | 2021-07-28 10:11 | P.PN ---
Subjective Progress Note Date: 07/28/21 Principal diagnosis: Coronary artery disease with left main disease. Past medical history significant for paroxysmal atrial fibrillation status post ablation in 2012, hypertension, hyperlipidemia, appendicitis status post appendectomy in September 2020, daily EtOH use without history of withdrawal, lifetime nonsmoker and a family history of heart disease on his mother's side and son having Marfan's. POD #2 total arterial double coronary artery bypass grafting using the skele tonized in situ right internal mammary artery crossing anteriorly to the left anterior descending coronary artery, the skeletonized in situ left internal mammary artery to the ramus intermedius coronary artery. Exclusion of the left atrial appendage using a 35 mm Atriclip. Intraoperative graft flow measurements using the [place] system, intraoperative transesophageal echocardiogram and epi-aortic scanning. Postoperative acute blood loss anemia and thrombocytopenia, expected given hemodilution and cardiopulmonary bypass pump. The patient was seen in follow-up today 07/28/2021 at his bedside in the intensive care unit. Currently he is sitting up to the bedside chair, is awake, alert and oriented 3 and is in no acute distress. Denies any complaints of shortness of breath, although is complaining of some intermittent surgical type pain to his chest. Currently he is rating his pain 4 out of 10 on the pain scale. The patient's chest tubes, Brown catheter and [place] catheter removed yesterday without incident. He remains hemodynamically stable and is currently on no inotropic pressure support. Right IJ cordis remains in place with current CVP pressure of 12 mmHg. Oxygen saturations are 94% on room air and he is achieving 3000 mL on his incentive spirometry with encouragement. Bedside telemetry showing normal sinus rhythm heart rate 77 BPM. He reports he has been up ambulating in the intensive care unit hallway with standby assistance from nursing staff 3 or 4 times and is tolerating well. No new concerns. Objective - Vital Signs Vital signs: Vital Signs Temp 98.5 F 07/28/21 08:00 Pulse 80 07/28/21 09:00 Resp 25 H 07/28/21 09:00 BP 104/64 07/28/21 09:00 Pulse Ox 95 07/28/21 09:00 Intake & Output 07/27/21 07/28/21 07/28/21 18:59 06:59 18:59 Intake Total 592.035 914.592 36 Output Total 8040 811 1776 Balance -1197.965 214.592 -964 Weight 105.7 kg Intake: IV 554 432 36 .9 NS pressure bag 84 72 6 Sodium Chloride 0.9% 1, 420 360 30 000 ml @ 50 mls/hr IV . Q20H [facility] Rx#:[id number] ceFAZolin 2 gm In Sodium 50 Chloride 0.9% 50 ml @ 100 mls/hr IVPB Q8HR [facility] Rx# :[id number] Intake, IV Titration 38.035 2.592 Amount Insulin Regular 100 unit 38.035 2.592 In Sodium Chloride 0.9% 100 ml @ Per Protocol IV .Q0M [facility] Rx#:[id number] Oral 480 Output: Chest Tube Drainage 390 Chest Tube Left 40 Chest Tube Mediastinal 50 Chest Tube Right 300 Urine 3525 903 4100 Other: Voiding Method Indwelling Catheter Toilet Urinal # Voids 0 1 ABP, PAP, CO, CI - Last Documented Arterial Blood Pressure 99/49 Pulmonary Artery Pressure 21/10 Cardiac Output 5.7 Cardiac Index 2.4 - Exam CONSTITUTIONAL: Sitting up to the bedside chair in the intensive care unit, appears comfortable, cooperative, no apparent acute distress. HEENT: Neck is supple, no JVD, no lymphadenopathy. Right IJ Cordis in place and functioning. RESPIRATORY: Lungs sounds essentially clear throughout, diminished to his bilateral bases. Respirations are symmetrical and nonlabored. Currently on room air with oxygen saturations 94%. Able to achieve 3000 mL on his incentive spirometry. Strong cough. CARDIOVASCULAR: Regular rhythm and rate. S1 and S2 present, negative for S3, gallop or murmur. Sternum is stable. Palpable peripheral pulses bilaterally, no edema present to his bilateral lower extremities. No calf pain or tenderness noted. Heart hugger in place with patient demonstrating appropriate use. Knee- high LUKE hose and sequential compression devices in place to his bilateral lower extremities. GASTROINTESTINAL: Abdomen soft, nontender, nondistended. Hypoactive bowel sounds present 4 quadrants. Tolerating diet. Passing flatus. No guarding or rigidity. GENITOURINARY: Continues to void. Urine output 1000 mL in the last 8 hours. INTEGUMENTARY: Skin is warm and dry with no evidence of clubbing or cyanosis. Midline sternal incision clean dry and well approximated, covered with dry intact dressing. NEUROLOGIC: Cranial nerves II through XII intact. No focal deficits. MUSKULOSKELETAL: Able to move all extremities, strength equal bilaterally. PSYCHIATRIC: Alert and oriented to person place and time, appropriate affect, i ntact judgment and insight. INVASIVE LINES AND TUBES: Right internal jugular Cordis, right radial arterial line present. Last CVP 12 mmHg. - Allied health notes Allied health notes reviewed: nursing - Labs CBC & Chem 7: 07/28/21 05:00 07/28/21 05:00 Labs: Abnormal Lab Results - Last 24 Hours (Table) 07/25/21 07/27/21 07/27/21 Range/Units 06:30 10:45 14:43 RBC (4.30-5.90) m/uL Hgb (13.0-17.5) gm/dL Hct (39.0-53.0) % Plt Count (150-450) k/uL Lymphocytes # (1.0-4.8) k/uL Sodium (137-145) mmol/L Creatinine (0.66-1.25) mg/dL Glucose (74-99) mg/dL POC Glucose (mg/dL) 141 H 113 H (75-99) mg/dL Calcium (8.4-10.2) mg/dL Total Protein (6.3-8.2) g/dL Albumin (3.5-5.0) g/dL Crossmatch See Detail 07/27/21 07/27/21 07/27/21 Range/Units 18:51 20:41 23:17 RBC (4.30-5.90) m/uL Hgb (13.0-17.5) gm/dL Hct (39.0-53.0) % Plt Count (150-450) k/uL Lymphocytes # (1.0-4.8) k/uL Sodium (137-145) mmol/L Creatinine (0.66-1.25) mg/dL Glucose (74-99) mg/dL POC Glucose (mg/dL) 148 H 127 H 119 H (75-99) mg/dL Calcium (8.4-10.2) mg/dL Total Protein (6.3-8.2) g/dL Albumin (3.5-5.0) g/dL Crossmatch 07/28/21 07/28/21 07/28/21 Range/Units 03:25 05:00 05:00 RBC 3.36 L (4.30-5.90) m/uL Hgb 11.2 L (13.0-17.5) gm/dL Hct 32.0 L (39.0-53.0) % Plt Count 114 L (150-450) k/uL Lymphocytes # 0.8 L (1.0-4.8) k/uL Sodium 132 L (137-145) mmol/L Creatinine 0.65 L (0.66-1.25) mg/dL Glucose 115 H (74-99) mg/dL POC Glucose (mg/dL) 110 H (75-99) mg/dL Calcium 8.2 L (8.4-10.2) mg/dL Total Protein 5.2 L (6.3-8.2) g/dL Albumin 3.0 L (3.5-5.0) g/dL Crossmatch 07/28/21 07/28/21 Range/Units 05:06 07:15 RBC (4.30-5.90) m/uL Hgb (13.0-17.5) gm/dL Hct (39.0-53.0) % Plt Count (150-450) k/uL Lymphocytes # (1.0-4.8) k/uL Sodium (137-145) mmol/L Creatinine (0.66-1.25) mg/dL Glucose (74-99) mg/dL POC Glucose (mg/dL) 117 H 125 H (75-99) mg/dL Calcium (8.4-10.2) mg/dL Total Protein (6.3-8.2) g/dL Albumin (3.5-5.0) g/dL Crossmatch - Imaging and Cardiology Chest x-ray: report reviewed, image reviewed Assessment and Plan Assessment: 1. Coronary artery disease with left main disease, status post total arterial Doppler coronary artery bypass grafting surgery 2. History of paroxysmal atrial fibrillation status post ablation in 2012, status post exclusion of the left atrial appendage using a 35 mm Atriclip 3. Hypertension 4. Hyperlipidemia, treated, cholesterol 219, LDL 125 5. Appendicitis status post appendectomy in September 2020 6. 6 pack of beer per day EtOH use without history of withdrawal, currently on CIWA protocol 7. Lifetime nonsmoker, preoperative FEV1 89% of predicted 8. Family history of heart disease, including son with Marfan's 9. Postoperative acute blood loss anemia, expected Plan: 1. Continue aspirin, statin, Plavix, beta shabnam. Will increase metoprolol tartrate as tolerated, his metoprolol tartrate was increased to 25 mg by mouth twice a day yesterday 07/27/2021. 2. Continue amiodarone 400 mg by mouth twice a day for atrial fibrillation prophylaxis. 3. Bronchodilators per pulmonology management. Encourage incentive spirometer use 10 times every hour while awake. 4. Increase activity, ambulate as tolerated, PT/OT/cardiac rehab following. 5. Will monitor daily labs and chest x-rays. Electrolyte replacement per protocol. 6. GI/DVT prophylaxis. 7. Insulin management per primary care service. The patient is a nondiabetic, preoperative hemoglobin A1c 4.9%, does need tight blood sugar control to promote sternal union and prevent infection. 8. Pain control with current medication regimen. 9. We will remove his right IJ Cordis and right radial arterial line. 10. Lasix 40 mg IV 1 now 11. Remove Brown, continue to record strict and accurate I's and O's. Daily weights. 12. Continue CIWA protocol. 13. First postoperative shower today. 14. More recommendations to follow based on patient's clinical course. Time with Patient: Greater than 30
[2021-07-28 12:11] LABS: Glucose,Whole Blood 114 mg/dL (75-99)
--- NOTE | 2021-07-28 12:23 | P.PN ---
Subjective Progress Note Date: 07/28/21 Principal diagnosis: Coronary artery disease with 70% stenosis of distal left main and 90% stenosis of proximal LAD This is a very pleasant 55-year-old male patient who follows with Dr. Zepeda as his primary care provider. He has a history of hypertension, hyperlipidemia, paroxysmal atrial fibrillation with previous ablation approximately 8 years ago. He does drink about 6 beers daily. He is a lifelong nonsmoker. FEV1 value 89% of predicted. He had been having issues with exertional shortness of breath and chest tightness. He had cardiology workup and stress testing revealed evidence of ischemia. He was brought in yesterday for an elective cardiac catheterization and was found to have 70% distal left main stenosis and a 90% proximal LAD stenosis is being considered for coronary artery bypass surgery. Presently, he is resting quite comfortably in bed. Awake and alert in no acute distress. Denies any chest pain, shortness of breath, cough or congestion. Maintaining good O2 saturation in the 90s on room air. Chest x-ray reveals no acute cardiopulmonary process. Carotid Dopplers revealed no significant carotid stenosis. White count 5.6. Hemoglobin 14.8. Clear liquids 191. Sodium 136. Potassium 4.1. Creatinine 0.70. Glucose 105. He's been initiated on aspirin, statin, beta blockers. Reevaluated today on 07/25/2021, patient is scheduled to undergo myocardial revascularization tomorrow, pulmonary-maddox, the patient is doing great, no cough no wheezing no shortness of breath, patient is doing excellent with incentive spirometry, his FEV1 baseline is 89%, and we have cleared him yesterday for surgery which is scheduled tomorrow. Chest x-ray a few days ago showed no acute cardiopulmonary process. Reevaluated today on 07/27/2021, patient is postoperative day #1, remains in the ICU, patient is doing great. No major issues overnight, patient was extubated shortly after he arrived to the ICU. Patient is hemodynamically stable, not requiring any inotropes or any pressors. He was extubated at 6:35 PM, he is now on room air, not in any distress. Doing extremely well with incentive spirometry about 1500 mL. Chest tubes and the amount of drainage noted. And that being addressed by thoracic surgery. His right IJ Cordis and Center Cross Omid remain in place. His last cardiac output was 5.7 index 2.4 pulmonary artery pressures 17/8. Chest x-ray is unremarkable. CBC is relatively normal left lites are normal renal profile is normal. Reevaluated today on 07/28/21, patient remains in the ICU, he is now postoperative day #2. Patient is sitting in a bedside chair, he is on room air, not in any distress, he had uneventful last 24 hours. Pain scale is 4 out of 10, patient had his chest tubes Brown catheter and Center Cross-Katie catheter removed yesterday. He is hemodynamically stable, not requiring any pressors or inotropes. Chest x-ray is reassuring, basically unremarkable. Patient is in sinus rhythm, and again he is hemodynamically stable. CBC is relatively normal left lites are normal renal profile is normal. Objective - Vital Signs Vital signs: Vital Signs Temp 98.5 F 07/28/21 08:00 Pulse 74 07/28/21 11:53 Resp 16 07/28/21 11:53 BP 112/70 07/28/21 10:00 Pulse Ox 95 07/28/21 09:00 Intake & Output 07/27/21 07/28/21 07/28/21 18:59 06:59 18:59 Intake Total 592.035 914.592 144 Output Total 0271 031 3954 Balance -1197.965 214.592 -2156 Weight 105.7 kg Intake: IV 554 432 144 .9 NS pressure bag 84 72 24 Sodium Chloride 0.9% 1, 420 360 120 000 ml @ 50 mls/hr IV . Q20H [facility] Rx#:[id number] ceFAZolin 2 gm In Sodium 50 Chloride 0.9% 50 ml @ 100 mls/hr IVPB Q8HR [facility] Rx# :[id number] Intake, IV Titration 38.035 2.592 Amount Insulin Regular 100 unit 38.035 2.592 In Sodium Chloride 0.9% 100 ml @ Per Protocol IV .Q0M [facility] Rx#:[id number] Oral 480 Output: Chest Tube Drainage 390 Chest Tube Left 40 Chest Tube Mediastinal 50 Chest Tube Right 300 Urine 9578 345 8598 Other: Voiding Method Indwelling Catheter Toilet Toilet Urinal Urinal # Voids 0 1 ABP, PAP, CO, CI - Last Documented Arterial Blood Pressure 99/49 Pulmonary Artery Pressure 21/10 Cardiac Output 5.7 Cardiac Index 2.4 - Exam CONSTITUTIONAL: Revealed 55-year-old white male in no distress. On room air. HEENT: [place], EOMI, anicteric, right IJ Cordis remains in place, swan Katie catheter has been removed yesterday. RESPIRATORY: Symmetrical chest expansion, clear throughout no crackles or rhonchi or wheezes CARDIOVASCULAR: Normal S1 and S2, no S3 gallop, no murmur. GASTROINTESTINAL: Soft nontender no megaly no rebound no guarding. INTEGUMENTARY: No clubbing edema or cyanosis, NEUROLOGIC: Alert oriented 3 no gross focal deficits. MUSKULOSKELETAL: No deformities noted limitation range of motion PSYCHIATRIC: Normal mood affect and normal mental status examination. - Labs CBC & Chem 7: 07/28/21 05:00 07/28/21 05:00 Labs: Abnormal Lab Results - Last 24 Hours (Table) 07/25/21 07/27/21 07/27/21 Range/Units 06:30 14:43 18:51 RBC (4.30-5.90) m/uL Hgb (13.0-17.5) gm/dL Hct (39.0-53.0) % Plt Count (150-450) k/uL Lymphocytes # (1.0-4.8) k/uL Sodium (137-145) mmol/L Creatinine (0.66-1.25) mg/dL Glucose (74-99) mg/dL POC Glucose (mg/dL) 113 H 148 H (75-99) mg/dL Calcium (8.4-10.2) mg/dL Total Protein (6.3-8.2) g/dL Albumin (3.5-5.0) g/dL Crossmatch See Detail 07/27/21 07/27/21 07/28/21 Range/Units 20:41 23:17 03:25 RBC (4.30-5.90) m/uL Hgb (13.0-17.5) gm/dL Hct (39.0-53.0) % Plt Count (150-450) k/uL Lymphocytes # (1.0-4.8) k/uL Sodium (137-145) mmol/L Creatinine (0.66-1.25) mg/dL Glucose (74-99) mg/dL POC Glucose (mg/dL) 127 H 119 H 110 H (75-99) mg/dL Calcium (8.4-10.2) mg/dL Total Protein (6.3-8.2) g/dL Albumin (3.5-5.0) g/dL Crossmatch 07/28/21 07/28/21 07/28/21 Range/Units 05:00 05:00 05:06 RBC 3.36 L (4.30-5.90) m/uL Hgb 11.2 L (13.0-17.5) gm/dL Hct 32.0 L (39.0-53.0) % Plt Count 114 L (150-450) k/uL Lymphocytes # 0.8 L (1.0-4.8) k/uL Sodium 132 L (137-145) mmol/L Creatinine 0.65 L (0.66-1.25) mg/dL Glucose 115 H (74-99) mg/dL POC Glucose (mg/dL) 117 H (75-99) mg/dL Calcium 8.2 L (8.4-10.2) mg/dL Total Protein 5.2 L (6.3-8.2) g/dL Albumin 3.0 L (3.5-5.0) g/dL Crossmatch 07/28/21 07/28/21 Range/Units 07:15 12:09 RBC (4.30-5.90) m/uL Hgb (13.0-17.5) gm/dL Hct (39.0-53.0) % Plt Count (150-450) k/uL Lymphocytes # (1.0-4.8) k/uL Sodium (137-145) mmol/L Creatinine (0.66-1.25) mg/dL Glucose (74-99) mg/dL POC Glucose (mg/dL) 125 H 114 H (75-99) mg/dL Calcium (8.4-10.2) mg/dL Total Protein (6.3-8.2) g/dL Albumin (3.5-5.0) g/dL Crossmatch Assessment and Plan Assessment: 1 Exertional dyspnea and chest tightness and a patient found to have significant coronary artery disease including 70% stenosis of the distal left main and 90% stenosis of the proximal LAD status post CABG postoperative day #2 2 Hyperlipidemia 3 Hypertension 4 Lifelong nonsmoker, FEV1 89% of predicted 5 Daily alcohol use 6 History of proximal atrial fibrillation status post ablation in 2013 Recommendation: Continue aspirin statins and Plavix beta blockers Continue incentive spirometry. Ambulate and increase activity as tolerated. Continue to monitor daily x-rays of the chest. Continue pain control. Discontinue unnecessary catheters. This was already done. Continue CIWA protocol. We will continue to follow. Time with Patient: Less than 30
[2021-07-28] MEDS: ACETAMINOPHEN TAB 500 MG TAB PO PRN ×2 (12:43→20:29)
[2021-07-28] MEDS: INSULIN ASPART (NovoLOG) 100 UNIT/ML VIAL SQ SCH ×3 (12:43→20:23)
--- NOTE | 2021-07-28 12:53 | P.PN ---
Subjective Patient is sitting comfortably in a chair. Most of his lines out. Chest tube is out He has some pleuritic chest discomfort 4-10 but he looks very comfortable Breath sounds are equal bilaterally No crackles at the bases Heart sounds S1 and S2 normal Heart rate in the 70s afebrile, blood pressure 125/66 mmHg Hemoglobin 11.2, sodium 132, creatinine 0.6 Impression CAD with left main distal disease that encroaches into the proximal LAD and circumflex, status post coronary bypass grafting Appendage occlusion Abnormal stress test with symptoms of angina that led to cut a catheterization History of paroxysmal atrial fibrillation the past status post pulmonary vein isolation almost 8-9 years back by me No recurrence of atrial fibrillation after that ablation Dyslipidemia Plan Continue antiplatelet therapy, atorvastatin 80 mg daily Increase metoprolol dose to 50 mrem twice daily If he is treated with amiodarone this should be well less than 1 month Amiodarone must be discontinued in a month and at discharge a limit to be placed on the duration of therapy Objective - Vital Signs Vital signs: Vital Signs Temp 98.1 F 07/28/21 12:00 Pulse 86 07/28/21 12:00 Resp 24 07/28/21 12:00 BP 125/66 07/28/21 12:00 Pulse Ox 95 07/28/21 12:00 Intake & Output 07/27/21 07/28/21 07/28/21 18:59 06:59 18:59 Intake Total 592.035 914.592 144 Output Total 6456 994 1208 Balance -1197.965 214.592 -2156 Weight 105.7 kg Intake: IV 554 432 144 .9 NS pressure bag 84 72 24 Sodium Chloride 0.9% 1, 420 360 120 000 ml @ 50 mls/hr IV . Q20H [facility] Rx#:[id number] ceFAZolin 2 gm In Sodium 50 Chloride 0.9% 50 ml @ 100 mls/hr IVPB Q8HR [facility] Rx# :[id number] Intake, IV Titration 38.035 2.592 Amount Insulin Regular 100 unit 38.035 2.592 In Sodium Chloride 0.9% 100 ml @ Per Protocol IV .Q0M [facility] Rx#:[id number] Oral 480 Output: Chest Tube Drainage 390 Chest Tube Left 40 Chest Tube Mediastinal 50 Chest Tube Right 300 Urine 7240 215 9120 Other: Voiding Method Indwelling Catheter Toilet Toilet Urinal Urinal # Voids 0 1 ABP, PAP, CO, CI - Last Documented Arterial Blood Pressure 99/49 Pulmonary Artery Pressure 21/10 Cardiac Output 5.7 Cardiac Index 2.4 - Labs CBC & Chem 7: 07/28/21 05:00 07/28/21 05:00 Labs: Abnormal Lab Results - Last 24 Hours (Table) 07/25/21 07/27/21 07/27/21 Range/Units 06:30 14:43 18:51 RBC (4.30-5.90) m/uL Hgb (13.0-17.5) gm/dL Hct (39.0-53.0) % Plt Count (150-450) k/uL Lymphocytes # (1.0-4.8) k/uL Sodium (137-145) mmol/L Creatinine (0.66-1.25) mg/dL Glucose (74-99) mg/dL POC Glucose (mg/dL) 113 H 148 H (75-99) mg/dL Calcium (8.4-10.2) mg/dL Total Protein (6.3-8.2) g/dL Albumin (3.5-5.0) g/dL Crossmatch See Detail 07/27/21 07/27/21 07/28/21 Range/Units 20:41 23:17 03:25 RBC (4.30-5.90) m/uL Hgb (13.0-17.5) gm/dL Hct (39.0-53.0) % Plt Count (150-450) k/uL Lymphocytes # (1.0-4.8) k/uL Sodium (137-145) mmol/L Creatinine (0.66-1.25) mg/dL Glucose (74-99) mg/dL POC Glucose (mg/dL) 127 H 119 H 110 H (75-99) mg/dL Calcium (8.4-10.2) mg/dL Total Protein (6.3-8.2) g/dL Albumin (3.5-5.0) g/dL Crossmatch 07/28/21 07/28/21 07/28/21 Range/Units 05:00 05:00 05:06 RBC 3.36 L (4.30-5.90) m/uL Hgb 11.2 L (13.0-17.5) gm/dL Hct 32.0 L (39.0-53.0) % Plt Count 114 L (150-450) k/uL Lymphocytes # 0.8 L (1.0-4.8) k/uL Sodium 132 L (137-145) mmol/L Creatinine 0.65 L (0.66-1.25) mg/dL Glucose 115 H (74-99) mg/dL POC Glucose (mg/dL) 117 H (75-99) mg/dL Calcium 8.2 L (8.4-10.2) mg/dL Total Protein 5.2 L (6.3-8.2) g/dL Albumin 3.0 L (3.5-5.0) g/dL Crossmatch 07/28/21 07/28/21 Range/Units 07:15 12:09 RBC (4.30-5.90) m/uL Hgb (13.0-17.5) gm/dL Hct (39.0-53.0) % Plt Count (150-450) k/uL Lymphocytes # (1.0-4.8) k/uL Sodium (137-145) mmol/L Creatinine (0.66-1.25) mg/dL Glucose (74-99) mg/dL POC Glucose (mg/dL) 125 H 114 H (75-99) mg/dL Calcium (8.4-10.2) mg/dL Total Protein (6.3-8.2) g/dL Albumin (3.5-5.0) g/dL Crossmatch
[2021-07-28 17:03] LABS: Glucose,Whole Blood 111 mg/dL (75-99)
[2021-07-28] MEDS ORDERED: MELATONIN 5 MG TABLET PO PRN (19:40)
[2021-07-28 20:23] LABS: Glucose,Whole Blood 120 mg/dL (75-99)
[2021-07-28] MEDS: SENNOSIDES-DOCUSATE SODIUM 1 EACH TAB PO SCH (20:29)
[2021-07-29] MEDS: KETOROLAC 15 MG/ML 1 ML VIAL IVP SCH ×3 (00:13→12:04)
[2021-07-29] MEDS: HEPARIN SODIUM,PORCINE/PF 5,000 UNIT/0.5 ML SYRINGE SQ SCH ×2 (00:13→08:34)
[2021-07-29 03:52] LABS: HCT 31.2 % (39.0-53.0); HGB 10.7 gm/dL (13.0-17.5); MCHC 34.3 g/dL (31.0-37.0); MCV 96.4 fL (80.0-100.0); Mean Platelet Volume 8.3; Platelet Count 135 k/uL (150-450); RBC 3.23 m/uL (4.30-5.90); RDW 12.2 % (11.5-15.5); WBC 8.3 k/uL (3.8-10.6)
[2021-07-29 04:00] LABS: African American GFR (CKD) >90 (>60 ml/min/1.73 sqM); Anion Gap 5 mmol/L; Blood Urea Nitrogen 15 mg/dL (9-20); Calcium 8.5 mg/dL (8.4-10.2); Carbon Dioxide 28 mmol/L (22-30); Chloride 103 mmol/L (98-107); Glucose 110 mg/dL (74-99); Non-African American GFR(CKD) >90 (>60 ml/min/1.73 sqM); Sodium 136 mmol/L (137-145)
[2021-07-29 07:09] LABS: Glucose,Whole Blood 103 mg/dL (75-99)
[2021-07-29] MEDS: IPRATROPIUM-ALBUTEROL 3 ML NEB INHALATION SCH ×2 (08:06→12:30)
[2021-07-29] MEDS: INSULIN ASPART (NovoLOG) 100 UNIT/ML VIAL SQ SCH ×2 (08:33→13:46)
[2021-07-29] MEDS: ASPIRIN 325 MG TAB PO SCH (08:33)
[2021-07-29] MEDS: THIAMINE 100 MG TAB PO SCH (08:33)
[2021-07-29] MEDS: AMIODARONE 200 MG TAB PO SCH (08:33)
[2021-07-29] MEDS: CLOPIDOGREL 75 MG TAB PO SCH (08:33)
[2021-07-29] MEDS: ATORVASTATIN 80 MG TAB PO SCH (08:33)
[2021-07-29] MEDS: PANTOPRAZOLE 40 MG TABLET PO SCH (08:34)
[2021-07-29] MEDS: METOPROLOL TARTRATE 25 MG TAB PO SCH (08:34)
[2021-07-29] MEDS: MUPIROCIN 2% OINT 22 GM TUBE NASAL SCH (08:35)
[2021-07-29] MEDS ORDERED: FUROSEMIDE 10 MG/ML 2 ML VIAL IV STA (08:39)
--- NOTE | 2021-07-29 08:51 | P.PN ---
Subjective Progress Note Date: 07/29/21 Principal diagnosis: Coronary artery disease with left main disease. Past medical history significant for paroxysmal atrial fibrillation status post ablation in 2012, hypertension, hyperlipidemia, appendicitis status post appendectomy in September 2020, daily EtOH use without history of withdrawal, lifetime nonsmoker and a family history of heart disease on his mother's side and son having Marfan's. POD #3 total arterial double coronary artery bypass grafting using the skele tonized in situ right internal mammary artery crossing anteriorly to the left anterior descending coronary artery, the skeletonized in situ left internal mammary artery to the ramus intermedius coronary artery. Exclusion of the left atrial appendage using a 35 mm Atriclip. Intraoperative graft flow measurements using the [employer] system, intraoperative transesophageal echocardiogram and epi-aortic scanning. Postoperative acute blood loss anemia and thrombocytopenia, expected given hemodilution and cardiopulmonary bypass pump. The patient was seen in follow-up today 07/29/2021 at his bedside in the intensive care unit. Currently he is sitting up to the bedside chair, is awake, alert and oriented 3 and is in no acute distress. He denies any complaints of shortness of breath or surgical type pain at this time. He reports he isn't sleeping well despite taking melatonin. He's been up ambulating in the intensive care unit hallway with standby assistance from nursing and physical/occupational therapy staff. The patient had his first postoperative shower yesterday and tolerated it well. He remained hemodynamically stable and is currently on no inotropic or pressor support. Oxygen saturations are 95% on room air and he is achieving 3000 mL on his incentive spirometry. Bedside telemetry showing normal sinus rhythm heart rate 77 BPM. No new concerns. Objective - Vital Signs Vital signs: Vital Signs Temp 98.3 F 07/29/21 04:00 Pulse 82 07/29/21 08:18 Resp 20 07/29/21 06:11 BP 106/66 07/29/21 04:00 Pulse Ox 95 07/29/21 04:00 Intake & Output 07/28/21 07/29/21 07/29/21 18:59 06:59 18:59 Intake Total 394 480 Output Total 3600 1500 Balance -3206 -1020 Weight 103.4 kg Intake: IV 144 .9 NS pressure bag 24 Sodium Chloride 0.9% 1, 120 000 ml @ 50 mls/hr IV . Q20H [facility] Rx#:[id number] Oral 250 480 Output: Urine 3600 1500 Other: Voiding Method Toilet Toilet Urinal Urinal # Voids 1 1 ABP, PAP, CO, CI - Last Documented Arterial Blood Pressure 99/49 Pulmonary Artery Pressure 21/10 Cardiac Output 5.7 Cardiac Index 2.4 - Exam CONSTITUTIONAL: Sitting up to the bedside chair in the intensive care unit, appears comfortable, cooperative, no apparent acute distress. HEENT: Neck is supple, no JVD, no lymphadenopathy. RESPIRATORY: Lungs sounds essentially clear throughout, diminished to his bilateral bases. Respirations are symmetrical and nonlabored. Currently on room air with oxygen saturations 95%. Able to achieve 3000 mL on his incentive spirometry. Strong cough. CARDIOVASCULAR: Regular rhythm and rate. S1 and S2 present, negative for S3, gallop or murmur. Sternum is stable. Palpable peripheral pulses bilaterally, no edema present to his bilateral lower extremities. No calf pain or tenderness noted. Heart hugger in place with patient demonstrating appropriate use. Knee- high LUKE hose and sequential compression devices in place to his bilateral lower extremities. GASTROINTESTINAL: Abdomen soft, nontender, nondistended. Active bowel sounds present 4 quadrants. Tolerating diet. Passing flatus. No guarding or rigidity. GENITOURINARY: Continues to void. Urine output 700 mL in the last 8 hours. INTEGUMENTARY: Skin is warm and dry with no evidence of clubbing or cyanosis. Midline sternal incision clean dry and well approximated, covered with dry intact dressing. NEUROLOGIC: Cranial nerves II through XII intact. No focal deficits. MUSKULOSKELETAL: Able to move all extremities, strength equal bilaterally. PSYCHIATRIC: Alert and oriented to person place and time, appropriate affect, intact judgment and insight. - Allied health notes Allied health notes reviewed: nursing - Labs CBC & Chem 7: 07/29/21 03:13 07/29/21 03:13 Labs: Abnormal Lab Results - Last 24 Hours (Table) 07/28/21 07/28/21 07/28/21 Range/Units 12:09 17:02 20:21 RBC (4.30-5.90) m/uL Hgb (13.0-17.5) gm/dL Hct (39.0-53.0) % Plt Count (150-450) k/uL Sodium (137-145) mmol/L Glucose (74-99) mg/dL POC Glucose (mg/dL) 114 H 111 H 120 H (75-99) mg/dL 07/29/21 07/29/21 07/29/21 Range/Units 03:13 03:13 07:08 RBC 3.23 L (4.30-5.90) m/uL Hgb 10.7 L (13.0-17.5) gm/dL Hct 31.2 L (39.0-53.0) % Plt Count 135 L (150-450) k/uL Sodium 136 L (137-145) mmol/L Glucose 110 H (74-99) mg/dL POC Glucose (mg/dL) 103 H (75-99) mg/dL - Imaging and Cardiology Chest x-ray: report reviewed, image reviewed Assessment and Plan Assessment: 1. Coronary artery disease with left main disease, status post total arterial Doppler coronary artery bypass grafting surgery 2. History of paroxysmal atrial fibrillation status post ablation in 2012, status post exclusion of the left atrial appendage using a 35 mm Atriclip 3. Hypertension 4. Hyperlipidemia, treated, cholesterol 219, LDL 125 5. Appendicitis status post appendectomy in September 2020 6. 6 pack of beer per day EtOH use without history of withdrawal, currently on CIWA protocol 7. Lifetime nonsmoker, preoperative FEV1 89% of predicted 8. Family history of heart disease, including son with Marfan's 9. Postoperative acute blood loss anemia, expected Plan: 1. Continue aspirin, statin, Plavix, beta shabnam. Will increase metoprolol tartrate as tolerated. 2. Continue amiodarone 400 mg by mouth twice a day for atrial fibrillation prophylaxis. 3. Bronchodilators per pulmonology management. Encourage incentive spirometer use 10 times every hour while awake. 4. Increase activity, ambulate as tolerated, PT/OT/cardiac rehab following. 5. Will monitor daily labs and chest x-rays. Electrolyte replacement per protocol. 6. GI/DVT prophylaxis. 7. Insulin management per primary care service. The patient is a nondiabetic, preoperative hemoglobin A1c 4.9%, does need tight blood sugar control to promote sternal union and prevent infection. 8. Pain control with current medication regimen. Ariton discontinued. 9. Lasix 20 mg IV 1 now 10. Continue to record strict and accurate I's and O's. Daily weights. 11. Continue CIWA protocol. 12. Transfer to third floor cardiac stepdown unit when bed available. 13. Discharge planning in place, anticipate discharge home with home health care to follow it within the next 24 hours. Discharge instructions reviewed. 14. More recommendations to follow based on patient's clinical course. Time with Patient: Greater than 30
--- NOTE | 2021-07-29 08:57 | XR ---
EXAMINATION TYPE: XR chest 2V DATE OF EXAM: 07/29/2021 COMPARISON: 07/28/2017 TECHNIQUE: PA and lateral views submitted. HISTORY: Postop FINDINGS: Right lower lobe infiltrate and small effusion with interstitial pattern compatible with mild venous congestion. Biapical pleural thickening. Cardiomegaly and postoperative change. IMPRESSION: 1. Right lower lobe infiltrate and small effusion correlate for mild venous congestion versus interst itial pneumonitis
[2021-07-29 09:12] VITALS: TEMP 98.6
--- NOTE | 2021-07-29 10:08 | P.PN ---
Subjective This is a pleasant 55 years old male with past medical history of paroxysmal atrial fibrillation status post ablation, hypertension, hyperlipidemia. Alcohol abuse. Patient had cardiac cath yesterday with Dr. Luis showed significant coronary artery disease with 70% stenosis of the left main artery and 90% of the LAD. Patient admitted and evaluated by cardiothoracic surgery for bypass procedure this coming Thursday 07/26. Patient currently lying in bed comfortable, he says he has mild chest discomfort and dyspnea. No other complaints. No abdominal pain. No diarrhea. No dysuria. No fever. Vitals are stable. Labs are unremarkable including CBC, BMP, liver enzymes and INR. Patient drink 6 years per day and he is already on CIWA protocol maintained 07/25/2021 patient Is sitting up in bed comfortably. No chest pain or dyspnea. No other complaints Labs and vitals are stable Continue with aspirin, metoprolol, CIWA protocol, no signs of local withdrawal Patient is going for bypass surgery tomorrow 07/26/2021 Pressure undergoing vascular surgery for his coronary artery disease for planned bypass today, after that he will be moved to the intensive care unit we will continue to follow Vitals and labs are reviewed, unremarkable and stable this morning 07/27/2021 Patient with no specific complaint is status post coronary artery bypass grafting. Eating his diet with no dyspnea. Minimal chest pain at surgical site inspected. Constipated. Vitals are stable. His continued with aspirin, Plavix and metoprolol as well as statin. 07/28/2021 Patient feeling well with no chest pain or dyspnea. Vitals are stable. WBC is 9.1 and hemoglobin 11.2 and BMP is unremarkable. Chest x-ray showing atelectasis He is on aspirin, Plavix and metoprolol and CIWA protocol but with no symptoms of withdrawal currently. Objective - Vital Signs Vital signs: Vital Signs Temp 98.5 F 07/28/21 08:00 Pulse 74 07/28/21 11:53 Resp 16 07/28/21 11:53 BP 112/70 07/28/21 10:00 Pulse Ox 95 07/28/21 09:00 Intake & Output 07/27/21 07/28/21 07/28/21 18:59 06:59 18:59 Intake Total 592.035 914.592 144 Output Total 1395 049 7741 Balance -1197.965 214.592 -2156 Weight 105.7 kg Intake: IV 554 432 144 .9 NS pressure bag 84 72 24 Sodium Chloride 0.9% 1, 420 360 120 000 ml @ 50 mls/hr IV . Q20H [facility] Rx#:[id number] ceFAZolin 2 gm In Sodium 50 Chloride 0.9% 50 ml @ 100 mls/hr IVPB Q8HR [facility] Rx# :[id number] Intake, IV Titration 38.035 2.592 Amount Insulin Regular 100 unit 38.035 2.592 In Sodium Chloride 0.9% 100 ml @ Per Protocol IV .Q0M [facility] Rx#:[id number] Oral 480 Output: Chest Tube Drainage 390 Chest Tube Left 40 Chest Tube Mediastinal 50 Chest Tube Right 300 Urine 0640 438 6446 Other: Voiding Method Indwelling Catheter Toilet Toilet Urinal Urinal # Voids 0 1 ABP, PAP, CO, CI - Last Documented Arterial Blood Pressure 99/49 Pulmonary Artery Pressure 21/10 Cardiac Output 5.7 Cardiac Index 2.4 - Exam GENERAL: The patient is alert and oriented x3, not in any acute distress. Well developed, well nourished. HEENT: Pupils are round and equally reacting to light. EOMI. No scleral icterus. No conjunctival pallor. Normocephalic, atraumatic. No pharyngeal erythema. No thyromegaly. CARDIOVASCULAR: S1 and S2 present. No murmurs, rubs, or gallops. PULMONARY: Chest is clear to auscultation, no wheezing or crackles. ABDOMEN: Soft, nontender, nondistended, normoactive bowel sounds. No palpable organomegaly. MUSCULOSKELETAL: No joint swelling or deformity. EXTREMITIES: No cyanosis, clubbing, or pedal edema. NEUROLOGICAL: Gross neurological examination did not reveal any focal deficits. SKIN: No rashes. no petechiae. - Labs CBC & Chem 7: 07/29/21 03:13 07/29/21 03:13 Labs: Abnormal Lab Results - Last 24 Hours (Table) 07/25/21 07/27/21 07/27/21 Range/Units 06:30 14:43 18:51 RBC (4.30-5.90) m/uL Hgb (13.0-17.5) gm/dL Hct (39.0-53.0) % Plt Count (150-450) k/uL Lymphocytes # (1.0-4.8) k/uL Sodium (137-145) mmol/L Creatinine (0.66-1.25) mg/dL Glucose (74-99) mg/dL POC Glucose (mg/dL) 113 H 148 H (75-99) mg/dL Calcium (8.4-10.2) mg/dL Total Protein (6.3-8.2) g/dL Albumin (3.5-5.0) g/dL Crossmatch See Detail 07/27/21 07/27/21 07/28/21 Range/Units 20:41 23:17 03:25 RBC (4.30-5.90) m/uL Hgb (13.0-17.5) gm/dL Hct (39.0-53.0) % Plt Count (150-450) k/uL Lymphocytes # (1.0-4.8) k/uL Sodium (137-145) mmol/L Creatinine (0.66-1.25) mg/dL Glucose (74-99) mg/dL POC Glucose (mg/dL) 127 H 119 H 110 H (75-99) mg/dL Calcium (8.4-10.2) mg/dL Total Protein (6.3-8.2) g/dL Albumin (3.5-5.0) g/dL Crossmatch 07/28/21 07/28/21 07/28/21 Range/Units 05:00 05:00 05:06 RBC 3.36 L (4.30-5.90) m/uL Hgb 11.2 L (13.0-17.5) gm/dL Hct 32.0 L (39.0-53.0) % Plt Count 114 L (150-450) k/uL Lymphocytes # 0.8 L (1.0-4.8) k/uL Sodium 132 L (137-145) mmol/L Creatinine 0.65 L (0.66-1.25) mg/dL Glucose 115 H (74-99) mg/dL POC Glucose (mg/dL) 117 H (75-99) mg/dL Calcium 8.2 L (8.4-10.2) mg/dL Total Protein 5.2 L (6.3-8.2) g/dL Albumin 3.0 L (3.5-5.0) g/dL Crossmatch 07/28/21 07/28/21 Range/Units 07:15 12:09 RBC (4.30-5.90) m/uL Hgb (13.0-17.5) gm/dL Hct (39.0-53.0) % Plt Count (150-450) k/uL Lymphocytes # (1.0-4.8) k/uL Sodium (137-145) mmol/L Creatinine (0.66-1.25) mg/dL Glucose (74-99) mg/dL POC Glucose (mg/dL) 125 H 114 H (75-99) mg/dL Calcium (8.4-10.2) mg/dL Total Protein (6.3-8.2) g/dL Albumin (3.5-5.0) g/dL Crossmatch Assessment and Plan Assessment: coronary artery disease with stenosis of left main artery 70%, and LAD 90%, status post bypass surgery on 07/26. Paroxysmal atrial fibrillation status post ablation, not on anticoagulation Alcohol abuse at-risk of alcohol withdrawal Hypertension Hyperlipidemia Plan: This is a pleasant 55 years old male with significant coronary artery disease scheduled for bypass on Thursday 07/26 Continue with aspirin and Plavix and add metoprolol and statin status post Continue with CIWA protocol and a mean Several consultants on the case including cardiology and cardiothoracic surgery and pulmonary Labs and medication were reviewed.. Continue same treatment. Continue with symptomatic treatment. Resume home medication. Monitor lytes and vitals. DVT and GI prophylaxis. Further recommendations as per clinical course of the pat ient DVT prophylaxis: Subcutaneous heparin Lovenox GI Prophylaxis: Ppi Prognosis is guarded
--- NOTE | 2021-07-29 10:51 | P.PN ---
Subjective Progress Note Date: 07/29/21 Principal diagnosis: Status post bypass grafting. Coronary artery disease with 70% stenosis of distal left main and 90% stenosis of proximal LAD This is a very pleasant 55-year-old male patient who follows with Dr. Zepeda as his primary care provider. He has a history of hypertension, hyperlipidemia, paroxysmal atrial fibrillation with previous ablation approximately 8 years ago. He does drink about 6 beers daily. He is a lifelong nonsmoker. FEV1 value 89% of predicted. He had been having issues with exertional shortness of breath and chest tightness. He had cardiology workup and stress testing revealed evidence of ischemia. He was brought in yesterday for an elective cardiac catheterization and was found to have 70% distal left main stenosis and a 90% proximal LAD stenosis is being considered for coronary artery bypass surgery. Presently, he is resting quite comfortably in bed. Awake and alert in no acute distress. Denies any chest pain, shortness of breath, cough or congestion. Maintaining good O2 saturation in the 90s on room air. Chest x-ray reveals no acute cardiopulmonary process. Carotid Dopplers revealed no significant carotid stenosis. White count 5.6. Hemoglobin 14.8. Clear liquids 191. Sodium 136. Potassium 4.1. Creatinine 0.70. Glucose 105. He's been initiated on aspirin, statin, beta blockers. Reevaluated today on 07/25/2021, patient is scheduled to undergo myocardial revascularization tomorrow, pulmonary-maddox, the patient is doing great, no cough no wheezing no shortness of breath, patient is doing excellent with incentive spirometry, his FEV1 baseline is 89%, and we have cleared him yesterday for surgery which is scheduled tomorrow. Chest x-ray a few days ago showed no acute cardiopulmonary process. Reevaluated today on 07/27/2021, patient is postoperative day #1, remains in the ICU, patient is doing great. No major issues overnight, patient was extubated shortly after he arrived to the ICU. Patient is hemodynamically stable, not requiring any inotropes or any pressors. He was extubated at 6:35 PM, he is now on room air, not in any distress. Doing extremely well with incentive spirometry about 1500 mL. Chest tubes and the amount of drainage noted. And that being addressed by thoracic surgery. His right IJ [place] and [place] remain in place. His last cardiac output was 5.7 index 2.4 pulmonary artery pressures 17/8. Chest x-ray is unremarkable. CBC is relatively normal left lites are normal renal profile is normal. Reevaluated today on 07/28/21, patient remains in the ICU, he is now post operative day #2. Patient is sitting in a bedside chair, he is on room air, not in any distress, he had uneventful last 24 hours. Pain scale is 4 out of 10, patient had his chest tubes Brown catheter and [place] catheter removed yesterday. He is hemodynamically stable, not requiring any pressors or inotropes. Chest x-ray is reassuring, basically unremarkable. Patient is in sinus rhythm, and again he is hemodynamically stable. CBC is relatively normal left lites are normal renal profile is normal. Progress note dated 07/29/2029. This is a patient who is 55 years of age, who is again seen in room 255, and the intensive care unit. The patient is postop day #3, status post 2 vessel bypass grafting. The patient is not receiving any supplemental oxygen, and not receiving any IV fluids. The patient is doing very well. We again encouraged daily use of incentive spirometer, every hour. And again, we recommend deep breathing, coughing, and clearing of secretions. White count 8.3, hemoglobin 10.7, hematocrit 31.2, and platelet count 135,000. His electrolyte profile is completely normal save for minimally low sodium of 136. Calcium 8.5. Chest x- ray from today shows minimal bibasilar infiltrates/atelectasis. Objective - Vital Signs Vital signs: Vital Signs Temp 98.6 F 07/29/21 08:00 Pulse 76 07/29/21 10:00 Resp 17 07/29/21 10:00 BP 132/74 07/29/21 08:00 Pulse Ox 96 07/29/21 08:00 Intake & Output 07/28/21 07/29/21 07/29/21 18:59 06:59 18:59 Intake Total 394 480 200 Output Total 3600 1500 900 Balance -3206 -1020 -700 Weight 103.4 kg Intake: IV 144 .9 NS pressure bag 24 Sodium Chloride 0.9% 1, 120 000 ml @ 50 mls/hr IV . Q20H [facility] Rx#:[id number] Oral 250 480 200 Output: Urine 3600 1500 900 Other: Voiding Method Toilet Toilet Toilet Urinal Urinal Urinal # Voids 1 1 ABP, PAP, CO, CI - Last Documented Arterial Blood Pressure 99/49 Pulmonary Artery Pressure 21/10 Cardiac Output 5.7 Cardiac Index 2.4 - Exam No acute distress, oriented 3. No supplemental oxygen. HEENT examination is grossly unremarkable. Neck supple. Full range of motion. No adenopathy thyromegaly or neck vein distention. Cardiovascular examination reveals regular rhythm rate. S1-S2 normal. No S3 or S4. No discernible murmur noted. Heart rate 76 bpm. Lungs reveal mostly clear breath sounds. Mild scattered rhonchi noted. No wheezes or crackles. Breath sounds equal bilaterally. Abdomen soft bowel sounds are heard. No masses or tenderness. Extremities are intact. No cyanosis clubbing or edema. Skin is without rash or lesion. Neurologic examination is brief but nonfocal. - Labs CBC & Chem 7: 07/29/21 03:13 07/29/21 03:13 Labs: Abnormal Lab Results - Last 24 Hours (Table) 07/28/21 07/28/21 07/28/21 Range/Units 12:09 17:02 20:21 RBC (4.30-5.90) m/uL Hgb (13.0-17.5) gm/dL Hct (39.0-53.0) % Plt Count (150-450) k/uL Sodium (137-145) mmol/L Glucose (74-99) mg/dL POC Glucose (mg/dL) 114 H 111 H 120 H (75-99) mg/dL 07/29/21 07/29/21 07/29/21 Range/Units 03:13 03:13 07:08 RBC 3.23 L (4.30-5.90) m/uL Hgb 10.7 L (13.0-17.5) gm/dL Hct 31.2 L (39.0-53.0) % Plt Count 135 L (150-450) k/uL Sodium 136 L (137-145) mmol/L Glucose 110 H (74-99) mg/dL POC Glucose (mg/dL) 103 H (75-99) mg/dL Assessment and Plan Assessment: Postop day #3, status post two-vessel bypass grafting. History of coronary artery disease. Routine postoperative ventilator management. History of hyperlipidemia. History of hypertension. History of paroxysmal atrial fibrillation, status post ablation, 2013. Lifelong nontobacco use. Plan: Plan dated 07/29/2021. The patient appears be doing very well. We continue to recommend hourly use of the incentive spirometer. We also recommend deep breathing, coughing, clearing of secretions. The patient seems be doing well and, could be considered for discharge by thoracic surgery in the near future. Additional recommendations and suggestions are forthcoming. We will continue to follow and make recommendations where appropriate. Overall prognosis remains good. Time with Patient: Less than 30
[2021-07-29 11:38] LABS: Glucose,Whole Blood 110 mg/dL (75-99)
[2021-07-29 12:19] VITALS: BP 123/69
--- NOTE | 2021-07-29 13:59 | PN ---
PROGRESS NOTE Familia is a 55-year-old gentleman who underwent cardiac catheterization because of an abnormal stress test and had tight distal left main stenosis and went on to have bypass surgery today. Patient is in sinus rhythm. Heart rate is 80 beats per minute. Blood pressure is 106/60 respiratory is 18. Chest exam reveals good air entry bilaterally. Heart exam reveals first and second heart sounds. No gallop. No murmur. Abdomen is soft, nontender. Examination of extremities did not reveal any edema. Peripheral pulses are felt. LABS: Labs show that the hemoglobin is 10.7, platelet count is 135, potassium is 4. Creatinine is 0.8. The patient has history of atrial fibrillation in the past and as a result, he is on amiodarone and the plan is to leave him on amiodarone for 4 weeks. ASSESSMENT: 1. Coronary artery disease status post coronary artery bypass grafting. 2. Paroxysmal atrial fibrillation. PLAN: Patient is doing well. We will continue the aspirin, Lipitor, Plavix and Lopressor that he is on. He will be followed up by Dr. Luis in the office. MMODL / IJN: [id number] /
--- NOTE | 2021-07-29 14:12 | P.DS ---
Providers Date of admission: 07/26/21 07:46 Expected date of discharge: 07/29/21 Attending physician: Brendan Luis DO Consults: 07/23/21 17:04 Consult Physician Routine Consulting Provider: Dung Malcolm Consult Reason/Comments: cad Do you want consulting provider notified?: Already Contacted Placement Type Exists?: Yes 07/24/21 08:42 Consult Physician Routine Consulting Provider: Nate Rolle Consult Reason/Comments: preop cabg Do you want consulting provider notified?: Already Contacted 07/24/21 09:41 Consult Physician Routine Consulting Provider: Saulo Cardenas Consult Reason/Comments: med mgmt; Ismaelzo patient Do you want consulting provider notified?: Yes 07/25/21 10:12 Consult to Anesthesia Routine Consulting Provider: Anesthesia,Services Consult Reason/Comments: Cardiac Surgery Pre-Op 07/26/21 14:00 Consult Physician Routine Consulting Provider: Greg Burgos Consult Reason/Comments: Disassembler Product Consult: post cardiac surgery Do you want consulting provider notified?: Already Contacted Primary care physician: Duane Penning[facility] Hospital Course: FINAL DIAGNOSIS: 1. Coronary artery disease with left main disease, status post total arterial Doppler coronary artery bypass grafting surgery 2. History of paroxysmal atrial fibrillation status post ablation in 2012, status post exclusion of the left atrial appendage using a 35 mm Atriclip 3. Hypertension 4. Hyperlipidemia, treated, cholesterol 219, LDL 125 5. Appendicitis status post appendectomy in September 2020 6. 6 pack of beer per day EtOH use without history of withdrawal, currently on CIWA protocol 7. Lifetime nonsmoker, preoperative FEV1 89% of predicted 8. Family history of heart disease, including son with Marfan's 9. Postoperative acute blood loss anemia, expected PRINCIPAL PROCEDURE: 1. Total arterial double coronary artery bypass grafting using the skeletonized in situ right internal mammary artery crossing anteriorly to the left anterior descending coronary artery, the skeletonized in situ left internal mammary artery to the ramus intermedius coronary artery. 2. Exclusion of the left atrial appendage using a 35 mm Atriclip. 3. Intraoperative graft flow measurements using the Bag[employer] Nashstim system. 4. Intraoperative transesophageal echocardiogram. 5. Intraoperative epi-aortic scanning. HISTORY OF PRESENT ILLNESS: This is a 55-year-old very active gentleman who follows on an outpatient basis with Dr. Zepeda from primary care and Dr. Burgos from cardiology. Recently, the patient has had complaints of experiencing exertional dyspnea with mid sternal chest pressure which he attributed to getting older and being out of shape. The symptoms have been present for the last year or so. The patient had a young friend who from a massive heart attack and he was concerned and decided his symptoms should not be overlooked so he presented to his hydrology teacher's office for further evaluation and treatment recommendations. Subsequently, for evaluation he underwent a stress test which was abnormal and for further evaluation underwent a cardiac catheterization. The cardiac catheterization demonstrated a 70% stenosis to his left main coronary artery, a 90% stenosis to his proximal left anterior descending coronary artery and a 60% stenosis to his mid left and teary or descending coron jericho artery. Due to the findings on the cardiac catheterization in the patient's symptoms he was referred to Dr. Dung Malcolm from cardiothoracic surgery for further evaluation and recommendations including myocardial revascularization surgery. Dr. Malcolm met with the patient, discussed the findings on his cardiac catheterization, discussed treatment options including myocardial revascularization. Risks and benefits of myocardial vascularization surgery discussed with the patient and knowing and understanding the risks the patient wished to proceed with the surgical option. An STS risk score was calculated in discussed with the patient by Dr. Malcolm. HOSPITAL COURSE: The patient was admitted to the hospital, and on 07/26/2021 after obtaining consent, was taken to the preoperative area, prepared in the usual fashion and subsequently taken to the operating room where Dr. Dung Malcolm performed a total arterial double coronary artery bypass grafting using the skeletonized in situ right internal mammary artery crossing anteriorly to the left anterior descending coronary artery, the skeletonized in situ left internal mammary artery to the ramus intermedius coronary artery, exclusion of the left atrial appendage using a 35 mm Atriclip, intraoperative graft flow measurements using the Medistim system, intraoperative transesophageal echocardiogram and epi-aortic scanning. Upon completion of his surgery the patient was transferred to the cardiovascular intensive care unit where he was recovered and monitored hemodynamically. He was extubated, all lines, tubes and supportive drips were discontinued when appropriate and transfer orders were placed for the third floor cardiac stepdown unit. Due to lack of bed availability on the stepdown unit he was kept in the ICU until discharge. His oxygen was titrated down, he continued to work with physical/occupational therapy and cardiac rehabilitation, he was tolerating an oral diet, his pain was well controlled and he was ready to be discharged home with [facility] care on postoperative day #3. He has received written and verbal instructions regarding his medications, activity restrictions, signs and symptoms requiring physician notification and his follow-up appointments. Plan - Discharge Summary Discharge Rx Participant: Yes New Discharge Prescriptions: New Pantoprazole [Protonix] 40 mg PO AC-BRKFST #30 tab Sennosides-Docusate Sodium [Senokot-S] 2 each PO HS #14 tab Aspirin 325 mg PO DAILY tab Amiodarone [Cordarone] 200 mg PO BID #35 tab Atorvastatin [Lipitor] 80 mg PO DAILY #30 tab Metoprolol Tartrate [Lopressor] 25 mg PO BID #60 tab Clopidogrel [Plavix] 75 mg PO DAILY #30 tab SILVER sulfADIAZINE CREAM [Silvadene Cream] 1 applic TOPICAL BID #25 gm Acetaminophen Tab [Tylenol] 1,000 mg PO Q6HR PRN tab PRN Reason: Fever And/ Or Pain Thiamine [Vitamin B-1] 100 mg PO BID-W/MEALS tab Discontinued Metoprolol Succinate [Toprol XL] 25 mg PO DAILY Aspirin [Adult Low Dose Aspirin EC] 81 mg PO DAILY Rosuvastatin [Crestor] 20 mg PO DAILY Discharge Medication List Acetaminophen Tab [Tylenol] 1,000 mg PO Q6HR PRN tab 07/29/21 [Rx] Amiodarone [Cordarone] 200 mg PO BID #35 tab 07/29/21 [Rx] Aspirin 325 mg PO DAILY tab 07/29/21 [Rx] Atorvastatin [Lipitor] 80 mg PO DAILY #30 tab 07/29/21 [Rx] Clopidogrel [Plavix] 75 mg PO DAILY #30 tab 07/29/21 [Rx] Metoprolol Tartrate [Lopressor] 25 mg PO BID #60 tab 07/29/21 [Rx] Pantoprazole [Protonix] 40 mg PO AC-BRKFST #30 tab 07/29/21 [Rx] SILVER sulfADIAZINE CREAM [Silvadene Cream] 1 applic TOPICAL BID #25 gm 07/29/21 [Rx] Sennosides-Docusate Sodium [Senokot-S] 2 each PO HS #14 tab 07/29/21 [Rx] Thiamine [Vitamin B-1] 100 mg PO BID-W/MEALS tab 07/29/21 [Rx] Follow up Appointment(s)/Referral(s): Nate Rolle MD [STAFF PHYSICIAN] - 08/20/21 9:30 am Greg Burgos MD [STAFF PHYSICIAN] - 2 Weeks (Dr. Burgos's office will call with a follow-up appointment.) Jovita Haas, ZULEYMA [Nurse Practitioner] - 08/05/21 11:30 am [facility],Cardiac [NON-STAFF] - 4 Weeks (You will be called in 4 weeks for evaluation for cardiac rehab) Isrrael Zepeda MD [Primary Care Provider] - 08/05/21 10:30 am Dung Malcolm MD [STAFF PHYSICIAN] - 08/23/21 10:30 am [facility], [NON-STAFF] - Ambulatory/Diagnostic Orders: Complete Blood Count w/diff [LAB.AMB] Time Frame: 08/01/21, Facility: [facility], Location: [facility] Comprehensive Metabolic Panel [LAB.AMB] Time Frame: 08/01/21, Facility: [facility], Location: [facility] Patient Instructions/Handouts: After Radial Heart Catheterization (GEN), Procedural Sedation (ED) Activity/Diet/Wound Care/Special Instructions: DISCHARGE INSTRUCTIONS: 1. No driving for 4 weeks, or until physician gives their ok. 2. The patient should sleep in their own bed, no medical bed needed. 3. Stairs are not an issue. If the bedroom is upstairs, it is advised that the patient go up at night and down in the morning for the first week. Go slowly, using handrail and take 1 step at a time. 4. LUKE hose are to be worn for 30 days or until physician discontinues. 5. Heart hugger is to be worn 100% of the time until physician discontinues.(except when showering) 6. No lifting, pushing, or pulling more than 10 pounds for 12 weeks. The physician will advise of any restriction changes. 7. The patient is expected to continue the prescribed walking program. 8. Continue pain control per as needed orders. 9. Continue with incentive spirometry and splinting/heart hugger until otherw ise directed by the physician. 10. Must shower daily using liquid antibacterial soap and a separate white washcloth for each individual incision. 11. Routine sternal incision care. No powders, lotions, ointments on incisions. No dressings are necessary on incisions unless they are draining. Dermabond tape is to remain on sternal incision until surgeon follow-up. 12. Please call surgeon/FINANCIAL SALES REPRESENTATIVE for temp greater than 101 F or purulent drainage from incisions. 13. All prescriptions given by surgeon for 30 days. Refills need to be filled through hydrology teacher/primary care physician. 14. A Red armband has been placed on the patient. It should be worn for 30 days post surgery and will be removed by the cardiac surgeons. If an ER visit is necessary, please make sure the number on the Red armband is called. 15. You have been referred to and are expected to begin Cardiac Rehab in approximately 4-6 weeks. HOME HEALTH SERVICES TO PROVIDE: RN SKILLED HOME CARE SERVICES FOR POST-OP SURGICAL PATIENTS WITH THE FOLLOWING: Coronary Artery Bypass Surgery (CABG), Mitral Valve Replacement/Repair ( MVR), Aortic Valve Replacement/Repair (AVR) RN TO CONTINUE EDUCATION FROM ``ROAD TO A HEALTH HEART PATIENT EDUCATION MANUAL (GIVEN TO PATIENT IN THE HOSPITAL) MEDICATION RECONCILIATION WITH EDUCATION NEEDED ON FIRST HOME VISIT EMPHASIZE IMPORTANCE OF WEARING BREAST SUPPORT/HEART HUGGER ENCOURAGE USE OF INCENTIVE SPIROMETER 10 X EVERY HOUR WHILE AWAKE ENCOURAGE UTILIZATION OF LOWER EXTREMITY COMPRESSION STOCKINGS/LUKE HOSE and ELEVATE LEGS ABOVE LEVEL OF HEART WHILE AT REST. ENCOURAGE AMBULATION 3-5x/day INCREASING TOLERATES, WHILE AVOIDING EXTREMES IN TEMPERATURE FREQUENCY: RN TO OPEN THE PATIENT WITHIN 24 HOURS OF DISCHARGE FROM THE HOSPITAL WITH [place] [facility] [place] 2-3 X A WEEK FOR 4 WEEKS ESTABLISHED BY PATIENT NEEDS. LABORATORY: CBC, CMP TO BE DRAWN ON THE THIRD DAY HOME, (RAN STAT) FAX RESULTS TO 2 [phone]. TELEHEALTH PARAMETERS: WEIGHT: NOTIFY MD OF WEIGHT GAIN OF 2 LBS IN 24 HOURS OR 5 LBS IN ONE WEEK HR: NOTIFY MD OF HR <55 BPM OR HR>100 BPM BP: NOTIFY MD IF BP <90/55 OR BP>140/100 O2 SAT: NOTIFY MD IF PO2<93% ON ROOM AIR SEND TELEHEALTH REPORT TO STATE TROOPER AND CARDIOVASCULAR SURGEON THE FIRST WEEK OF CARE AND THEN BI-WEEKLY. PLEASE ADDITIONALLY COMMUNICATE ANY ABNORMALS AND NEW FINDINGS TO THE SURGEONS OFFICE. Discharge Disposition: HOME WITH HOME HEALTH SERVICES
[2021-07-29 14:49] VITALS: PULSE 92; RESP 22
--- NOTE | 2021-07-31 10:11 | P.VSCSTY ---
Greater Saphenous Vein Mapping This is bilateral lower extremity greater saphenous vein mapping. Date of service: 07/23/2021 Vein quality and ultrasound appearance: We see no intraluminal thrombus or significant wall changes. Vein size groin right : 6.4 x 4.2 groin left: 6.6 x 5.9 High thigh right: 5.2 x 4.6 high thigh left: 5.2 x 4.2 Mid thigh right: 5.5 x 4.5 mid thigh left: 4.4 x 3.0 Above-knee right: 4.3 x 3.8 above-knee left: 3.0 x 2.7 Below knee right: 3.7 x 3.4 below-knee left: 3.6 x 2.4 Mid calf right: 2.6 x 2.5 mid calf left: 2.8 x 2.2 Ankle right: 3.8 x 3.1 ankle left: 3.0 x 2.0 Impression: Usable bilateral greater saphenous vein.
== END 2021-07-29 16:43 | disposition home health service (06) | DRG 234 ==
LOC: CATHCVL 07:31 → 3SCARD 09:20 → CATHCVL 07-25 16:18 → 2SICU 07-26 07:33 → OBSVTOIN 07-26 07:46 → 2SICU 07-26 14:51
PROVIDERS: ADMIT Internal Medicine; ATTEND Internal Medicine
PROC: B2111ZZ Fluoroscopy of Multiple Coronary Arteries using Low Osmolar Contrast (ICD-10-PCS; 2021-07-23)
PROC: 02100Z8 Bypass Coronary Artery, One Artery from Right Internal Mammary, Open Approach (ICD-10-PCS; 2021-07-26)
PROC: 02L70CK Occlusion of Left Atrial Appendage with Extraluminal Device, Open Approach (ICD-10-PCS; 2021-07-26)
PROC: B24BZZZ Ultrasonography of Heart with Aorta (ICD-10-PCS; 2021-07-26)
PROC: 5A1221Z Performance of Cardiac Output, Continuous (ICD-10-PCS; 2021-07-26)
PROC: 02100Z9 Bypass Coronary Artery, One Artery from Left Internal Mammary, Open Approach (ICD-10-PCS; principal; 2021-07-26 08:00)
PROC: B2111ZZ Fluoroscopy of Multiple Coronary Arteries using Low Osmolar Contrast (ICD-10-PCS; 2021-07-26 08:00)
DX: I25.10 Atherosclerotic heart disease of native coronary artery without angina pectoris (principal); D62 Acute posthemorrhagic anemia; D69.6 Thrombocytopenia, unspecified; E78.5 Hyperlipidemia, unspecified; F10.10 Alcohol abuse, uncomplicated; I10 Essential (primary) hypertension; I48.0 Paroxysmal atrial fibrillation; K59.00 Constipation, unspecified; Z20.822 Contact with and (suspected) exposure to COVID-19; Z79.82 Long term (current) use of aspirin; Z79.899 Other long term (current) drug therapy; Z80.52 Family history of malignant neoplasm of bladder; Z80.8 Family history of malignant neoplasm of other organs or systems; Z82.49 Family history of ischemic heart disease and other diseases of the circulatory system; Z90.49 Acquired absence of other specified parts of digestive tract
CPT/HCPCS: 71045; 71046; 80048; 80053; 80061; 80074; 81003; 82330; 82805; 83036; 83735; 84132; 85025; 85027; 85520; 85610; 85730; 86850; 86891; 86900; 86901; 86920; 87070; 87635; 93306; 93458; 93880; 93970; 93979; 94150; 94640

== ENCOUNTER → 2021-09-04 | Outpatient (CLI) | payer BC ==
--- NOTE | 2021-09-04 16:41 | XR ---
EXAMINATION TYPE: XR chest 2V DATE OF EXAM: 09/04/2021 COMPARISON: Chest x-ray dated 08/20/2021 HISTORY: Shortness of breath TECHNIQUE: Frontal and lateral views of the chest are obtained. FINDINGS: Patient is post median sternotomy and left atrial appendage clip placement. There is abnorm al attenuation at the lung bases, blunting the costophrenic angle similar to prior exam. Cardiac medi astinal silhouette shows a similar appearance. No evident pneumothorax. Osseous structures are stable . Prominent lung times are consistent with underlying COPD. IMPRESSION: Suspect basilar effusions and associated atelectasis.
== END | disposition home or self-care (01) ==
LOC: RADXRMAIN 13:42
PROVIDERS: ATTEND Surgery
DX: R06.02 Shortness of breath (principal)
CPT/HCPCS: 71046

== ENCOUNTER → 2021-12-13 | Outpatient (CLI) | payer BC ==
[2021-12-13 14:58] LABS: HCT 43.3 % (39.6-50.0); HGB 13.9 g/dL (13.0-17.0); MCH 29.1 pg (27.0-32.0); MCHC 32.1 g/dL (32.0-37.0); MCV 90.6 fL (80.0-97.0); Mean Platelet Volume 10.4 fL (9.5-12.2); NRBC Per 100 WBC 0 /100 WBCS (0.0-0.0); Platelet Count 203 X 10*3/uL (140-440); RBC 4.78 X 10*6/uL (4.40-5.60); RDW 14.5 % (11.5-14.5); WBC 6.05 X 10*3/uL (4.50-10.00)
[2021-12-13 16:06] LABS: African American GFR (CKD) 87.7 (60.0-200.0); Blood Urea Nitrogen 14.6 mg/dL (9.0-27.0); Carbon Dioxide 25.2 mmol/L (20.0-27.5); Chloride 105 mmol/L (96-109); Chol/HDL Ratio 2.56 Ratio; LDL Cholesterol,Calculated 60.4 mg/dL (0.0-131.0); Non-African American GFR(CKD) 75.7 (60.0-200.0); Potassium 4.8 mmol/L (3.5-5.5); Sodium 142 mmol/L (135-145); VLDL Calculation 15.82 mg/dL (5.00-40.00)
[2021-12-14 13:12] LABS: Coronavirus SARS CoV-2 Not Detected (Not Detected)
== END | disposition home or self-care (01) ==
LOC: LABPAT 09:09
PROVIDERS: ATTEND Internal Medicine Clinical Cardiac Electrophysiology
DX: Z01.812 Encounter for preprocedural laboratory examination (principal); I48.19 Other persistent atrial fibrillation; Z20.822 Contact with and (suspected) exposure to COVID-19
CPT/HCPCS: 80051; 80061; 82565; 84520; 85027; U0003; C9803

== ENCOUNTER 2021-12-16 09:18 | Day surgery (SDC) | payer BC ==
[2021-12-13 10:38] VITALS: BMI 25.2
[~2021-12-16 09:18] MED LIST changes: -ALPRAZolam 0.25 MG TAB PO PRN; -ALPRAZolam 0.5 MG TAB PO PRN; -ASPIRIN 325 MG TAB PO STA; -ATORVASTATIN 80 MG TAB PO STA; -HEPARIN SODIUM,PORCINE 10,000 UNIT in SODIUM CHLORIDE 0.9% 1,000 ML IRRIGATION PRN; -HEPARIN SODIUM,PORCINE 2,500 UNIT in SODIUM CHLORIDE 0.9% 250 ML IRRIGATION PRN; -NITROGLYCERIN SL TABS 0.4 MG TAB SUBLINGUAL PRN; +SODIUM CHLORIDE 0.9% 1,000 ML IV SCH
[2021-12-16 09:53] VITALS: RESP 18; TEMP 97.8
[2021-12-16] MEDS ORDERED: PROPOFOL 10 MG/ML 20 ML VIAL IV ONE (10:26)
[2021-12-16] MEDS ORDERED: MIDAZOLAM 2 MG/2 ML VIAL ONE (10:26)
[2021-12-16] MEDS ORDERED: LIDOCAINE 1% INJ 10MG/ML (20 ML MDV) ONE (10:26)
--- NOTE | 2021-12-16 11:27 | P.EPPROC ---
- EP Procedure Note Electrophysiology Procedure Note: Diagnoses Persistent atrial fibrillation, symptomatic with RVR, on ELIQUIS Recently started on Multaq 400 mg twice daily Post COVID atrial fibrillation Past history of atrial fibrillation status post antral isolation of the pulmonary veins almost 10 years back Details Under conscious sedation a 200 J biphasic shock in the AP configuration converted the patient to sinus rhythm Heart rates in the 50s Plan Continue Multaq Reduce metoprolol to 50 mg twice daily Continue Plavix ELIQUIS atorvastatin Follow-up with Dr. Burgos in 3-4 weeks Follow-up Holter monitor
--- NOTE | 2021-12-16 11:28 | P.PRLE ---
RE: Familia Lara Dear Dr. Duane Warner underwent successful electrical cardioversion for persistent atrial fibrillation I had started him on Multaq a few days prior to this Today I'm reducing the dose of metoprolol to 50 mrem twice daily line he will continue Multaq and ELIQUIS and other cardiac medications as before Thank you for entrusting me with the care of the patient Warm regards Sincerely Greg Burgos
[2021-12-16 12:21] VITALS: BP 112/64; PULSE 54
== END 2021-12-16 12:30 | disposition home or self-care (01) ==
LOC: CATHEP 09:18
PROVIDERS: ATTEND Internal Medicine Clinical Cardiac Electrophysiology
DX: I48.19 Other persistent atrial fibrillation (principal); R94.31 Abnormal electrocardiogram [ECG] [EKG]; Z95.1 Presence of aortocoronary bypass graft; Z79.01 Long term (current) use of anticoagulants; Z79.02 Long term (current) use of antithrombotics/antiplatelets; Z79.899 Other long term (current) drug therapy
CPT/HCPCS: 92960; J2250; J2001; J2704

== ENCOUNTER → 2022-07-24 | Outpatient (CLI) | payer BC | END | disposition home or self-care (01) | LOC: LABWHC1 12:53 | PROVIDERS: ATTEND Internal Medicine | DX: N40.0 Benign prostatic hyperplasia without lower urinary tract symptoms (principal); N52.9 Male erectile dysfunction, unspecified | CPT/HCPCS: 36415; 84403 ==

== ENCOUNTER → 2023-03-13 | Outpatient (CLI) | payer BC ==
[2023-03-13 15:21] LABS: Basophils # (A) 0.02 X 10*3/uL (0.00-0.10); Basophils % (A) 0.4 %; HCT 38.6 % (39.6-50.0); HGB 12.4 g/dL (13.0-17.0); Immature Grans, Automated 0.4 %; Lymphocytes # (A) 1.52 X 10*3/uL (0.90-5.00); Lymphocytes % (A) 30.5 %; MCHC 32.1 g/dL (32.0-37.0); MCV 83.9 fL (80.0-97.0); Mean Platelet Volume 10.1 fL (9.5-12.2); Monocytes # (A) 0.58 X 10*3/uL (0.20-1.00); Monocytes % (A) 11.6 %; NRBC Per 100 WBC 0 /100 WBCS (0.0-0.0); Neutrophils # (A) 2.74 X 10*3/uL (1.80-7.70); Neutrophils % (A) 55.1 %; Platelet Count 228 X 10*3/uL (140-440); RDW 13.6 % (11.5-14.5); WBC 4.98 X 10*3/uL (4.50-10.00)
[2023-03-13 16:20] LABS: ALT 33 U/L (10-49); AST 22 U/L (14-35); African American GFR (CKD) 97.8 (60.0-200.0); Albumin 4.6 g/dL (3.8-4.9); Alkaline Phosphatase 111 U/L (41-126); Blood Urea Nitrogen 16.2 mg/dL (9.0-27.0); Calcium 9.3 mg/dL (8.7-10.3); Carbon Dioxide 26.3 mmol/L (20.0-27.5); Chloride 105 mmol/L (96-109); Chol/HDL Ratio 4.22 Ratio; Glucose 103 mg/dL (70-110); LDL Cholesterol,Calculated 142.7 mg/dL (0.0-131.0); Magnesium 2.3 mg/dL (1.5-2.4); Non-African American GFR(CKD) 84.4 (60.0-200.0); Potassium 4.3 mmol/L (3.5-5.5); Sodium 142 mmol/L (135-145); Total Protein 6.6 g/dL (6.2-8.2); VLDL Calculation 15.16 mg/dL (5.00-40.00)
== END | disposition home or self-care (01) ==
LOC: LABWHC1 09:02
PROVIDERS: ATTEND Nurse Practitioner Adult Health
DX: I10 Essential (primary) hypertension (principal); I25.10 Atherosclerotic heart disease of native coronary artery without angina pectoris; I48.0 Paroxysmal atrial fibrillation; E78.5 Hyperlipidemia, unspecified
CPT/HCPCS: 36415; 80053; 80061; 83735; 84443; 85025

== ENCOUNTER 2023-09-17 09:32 | Day surgery (SDC) | payer BC ==
[2023-09-14 10:57] VITALS: BMI 27.2
[2023-09-17] MEDS ORDERED: SODIUM CHLORIDE 0.9% 500 ML 500 ML IV ONE (09:45)
[2023-09-17] MEDS ORDERED: fentaNYL (PF) 50 MCG/ML 2 ML AMP ONE (10:01)
[2023-09-17] MEDS ORDERED: BENZOCAINE SPRAY 1 CAN TOPICAL ONE (10:18)
[2023-09-17] MEDS: fentaNYL (PF) 50 MCG/ML 2 ML AMP IVP ONE ×2 (10:20→10:30)
[2023-09-17] MEDS: MIDAZOLAM 2 MG/2 ML VIAL IVP ONE ×2 (10:21→10:29)
[2023-09-17] MEDS ORDERED: MIDAZOLAM 2 MG/2 ML VIAL IVP ONE (10:21)
[2023-09-17 10:22] VITALS: RESP 16; TEMP 98.1
[2023-09-17 12:17] VITALS: BP 121/78; PULSE 58
--- NOTE | 2023-09-17 19:08 | P.TEE ---
Date of Procedure: 09/17/23 Description of Procedure(s): Procedure performed: 1. Transesophageal Echocardiogram with color flow doppler, pulsed wave doppler and continuous wave doppler 2. Moderate conscious sedation. Sedation time 10 mins. Indications: Evaluation of patency of left atrial appendage after Atriclip occlusion 57-year-old history of CABG and atrial fibrillation status post Atriclip occlusion has been having significant bruising on systemic anticoagulation. He's been planned to be taken off systemic anticoagulation. For this we will elect to rule out if patient has any significant flow across the left atrial appendage after his Atriclip occlusion. He was scheduled for a JOHN to study this further. Consent: I have discussed the risks, benefits and alternative therapies for the above-mentioned procedure. The patient has indicated understanding and acceptance of the risks of the procedure. Signed consent was obtained and was placed in the paper chart. Procedural Steps: Timeout was performed in usual fashion. Patient's heart rate, blood pressure, oxygen saturation and ECG were monitored. Benzocaine was sprayed liberally in the back of the throat. Bite block was placed between the jaw. 4 mg of Versed and 75 mcg of Fentanyl were administered intravenously. After achieving appropriate moderate conscious sedation, JOHN probe was advanced without difficulty and without any immediate complications to the esophagus. JOHN study was performed with color flow doppler, pulsed wave doppler and continuous wave doppler. Agitated saline bubbles were injected to assess for any intra- atrial shunt. The probe was then removed. Patient tolerated the procedure well. Patient was transferred to the post procedure area in stable and satisfactory condition. Throughout the procedure patient's heart rate, blood pressure, oxygen saturation and ECG were monitored. Total sedation time 10 mins. Complications: none FINDINGS Left Atrium: Normal Left atrial size. No evidence of mass or thrombus seen Left Atrial Appendage: Very small residual left atrial appendage with appropriate ligation and no clinically significant flow. Inter atrial septum: Intact inter-atrial septum with no evidence of atrial septal defect or patent foramen ovale. Left Ventricle: Normal global LV size and systolic function Right Atrium: Normal overall RV size Right Ventricle: Normal global RV size and systolic function Aortic Valve: Structurally normal Trileaflet, no significant calcification. Trace aortic insufficiency. Mitral Valve: Struturally normal. No evidence of prolapse. Mild MR. No evidence of stenosis. Pulmonic Valve: Not well visualized. Tricuspid Valve: Structurally normal. Ascending aorta, Aortic root and Aortic arch: Normal size aortic root and ascend ing aorta Descending aorta: Mild intimal thickening. CONCLUSION: Very small residual left atrial appendage with appropriate ligation and no clinically significant flow. No evidence of thrombus in left atrium Mild MR Trace AI Okay to stop systemic anticoagulation and continue antiplatelet therapy. Follow up outpatient with
== END 2023-09-17 12:00 | disposition home or self-care (01) ==
LOC: CATHCVL 09:32
PROVIDERS: ATTEND Student in an Organized Health Care Education/Training Program
DX: I48.19 Other persistent atrial fibrillation (principal); I25.10 Atherosclerotic heart disease of native coronary artery without angina pectoris; E78.5 Hyperlipidemia, unspecified; Z95.5 Presence of coronary angioplasty implant and graft; Z79.01 Long term (current) use of anticoagulants; Z79.899 Other long term (current) drug therapy
CPT/HCPCS: 93312; 93320; 93325; J2250; J3010

== ENCOUNTER → 2025-04-12 | Outpatient (CLI) | payer BC ==
[2025-04-12 10:16] VITALS: BP 123/76; PULSE 60; RESP 16; TEMP 97.9
--- NOTE | 2025-04-12 12:16 | P.SLEEP ---
History of Present Illness DATE: 04/12/2025 CONSULTATION/NEW PATIENT EVALUATION HISTORY OF PRESENT ILLNESS/SLEEP-WAKE EVALUATION 59-year-old gentleman had been evaluated in the sleep center for possible obstructive sleep apnea hypopnea syndrome. SLEEP SCHEDULE: Usually sleep schedule from 1012 until 6 to 6:30 AM. FALLING ASLEEP: sometimes patient has difficulties with falling asleep. DURING SLEEP: patient snores, grinding teeth, has episodes of panic attacks and episodes of gasping for air. Patient wakes up from sleep up to 2 times with one episode of nocturia. No history of hypnogogical hallucinations, sleep paralysis, or cataplexy. DURING THE DAY/WAKE STATE: In the morning patient wake up tired, has problems with concentration, irritability, depression and anxiety. [place] sleepiness scale is 4. patient rarely takes naps. PAST MEDICAL HISTORY: atrial fibrillation, coronary artery disease headaches, hyperlipidemia, acid reflux. PAST SURGICAL HISTORY: CABG, cardiac ablation for atrial fibrillation. MEDICATIONS: please see below. SOCIAL HISTORY: please see below. FAMILY HISTORY: please see below. REVIEW OF SYSTEMS: snoring, awakenings from sleep, episodes of sleepiness during the day. No fevers. No double vision. No recent chest pain. No shortness of breath. No abdominal pain. No bleeding episodes. No blood in urine. No seizure episodes. PHYSICAL EXAMINATION: GENERAL: A pleasant patient without any distress. VITAL SIGNS: please see below, weight 229 pounds, BMI 27.7. HEENT: PERRLA, EOMI. Evaluation of oropharynx showed tongue protrudes midline, low position of soft palate M, BMI 27.70, short distance between soft palate and posterior pharingeal wall, retrognathia 2 mm. NECK: Supple. No JVD. Thyroid is not palpable. 16-1/3 inches in circumference. LUNGS: Clear to percussion and to auscultation. Good air exchange. No wheezing or rhonchi. HEART: S1, S2 regular. No murmurs, gallops or rubs. ABDOMEN: Soft and nontender. Bowel sounds are present. No organomegaly appreciated. EXTREMITIES: No clubbing or cyanosis. ADULT CROSSING GUARD: Awake, alert, and oriented x3. Cranial nerves 2 to 7 intact. There is no fasciculation or atrophy noted. No focal deficits observed. ASSESSMENT: 1. Loud snoring, multiple awakenings from sleep with episodes of gasping for air, retrognathia. obstructive sleep apnea hypopnea syndrome. 2. coronary artery disease, status post CABG. 3. history of atrial fibrillation, status post cardiac ablation. 4. acid reflux. 5 hyperlipidemia. PLAN: 1. Polysomnography for evaluation of patient's breathing during sleep. 2. Following plan after reading sleep study. 3. Preferable position during sleep on the side. 4. No driving if patient feels any sleepiness. Patient is aware of civil and criminal liability for unsafe driving. 5. Sleep hygiene with regular sleep time for at least 7.5-8 hours. 6. Watching weight. Thank you very much for referring this patient for consultation. Sincerely, Flavio Howard MD, PhD, FAASM. Diplomat of [place] [employer], Sleep Medicine Board by [place] [employer] [place] [employer] Workforce Investment Act Career Manager of [facility] [place] cc: Sean Hernandez DO Past Medical History Past Medical History: Atrial Fibrillation, Coronary Artery Disease (CAD), Hyperlipidemia, Hypertension, Prostate Disorder Additional Past Medical History / Comment(s): PTSD, CABG History of Any Multi-Drug Resistant Organisms: None Reported Past Surgical History: Appendectomy, Cardiac Ablation, Coronary Bypass/CABG Additional Past Surgical History / Comment(s): CARDIAC ABLATION X2, double bypass 2020 Past Anesthesia/Blood Transfusion Reactions: No Reported Reaction Past Psychological History: PTSD Smoking Status: Never smoker Past Alcohol Use History: Occasional Additional Past Alcohol Use History / Comment(s): USE TO DRINK MODERATELY BUT SINCE MY CABG I seldom have a drink. Past Drug Use History: None Reported - Past Family History Father Family Medical History: Cancer Additional Family Medical History / Comment(s): Bladder cancer; skin cancer; smoker Mother Family Medical History: AFIB Additional Family Medical History / Comment(s): sOME OF MY UNCLES ON MY MOMS SIDE OF THE FAMILY HAVE HEART PROBLEMS. family Additional Family Medical History / Comment(s): rossy runs in the family Medications and Allergies Home Medications Medication Instructions Recorded Confirmed Type Clopidogrel [Plavix] 75 mg PO DAILY #30 tab 07/29/21 04/12/25 Rx Apixaban [Eliquis] 5 mg PO BID 12/13/21 09/17/23 History Atorvastatin [Lipitor] 80 mg PO HS 12/13/21 04/12/25 History Metoprolol Tartrate [Lopressor] 25 mg PO BID 12/13/21 04/12/25 History tadalafiL [Cialis] 5 mg PO DAILY 12/13/21 04/12/25 History Ezetimibe [Zetia] 10 mg PO HS 09/14/23 04/12/25 History Allergies Allergy/AdvReac Type Severity Reaction Status Date / Time No Known Allergies Allergy Verified 09/14/23 10:47 Physical Exam Vitals: Vital Signs Temp Pulse Resp BP Pulse Ox 04/12/25 10:14 97.9 F 60 16 123/76 96 Intake and Output 04/11/25 04/12/25 04/12/25 22:59 06:59 14:59 Other: Weight 103.873 kg Sleep Note - Sleep Data ESS Total: 4 - Sleep Note Sleep Note: Temperature: 97.9 F Pulse Rate: 60 Respiratory Rate: 16 Blood Pressure: 123/76 SpO2: 96 Height: 6 ft 4.2 in Weight: 103.873 kg BMI: Neck Circumference: 16.3
== END ==
LOC: 3 N SLEEP 09:48
PROVIDERS: ATTEND Internal Medicine
DX: G47.33 Obstructive sleep apnea (adult) (pediatric) (principal); I25.10 Atherosclerotic heart disease of native coronary artery without angina pectoris; I48.91 Unspecified atrial fibrillation; K21.9 Gastro-esophageal reflux disease without esophagitis; E78.5 Hyperlipidemia, unspecified; Z98.890 Other specified postprocedural states; Z95.1 Presence of aortocoronary bypass graft
CPT/HCPCS: 99211

== ENCOUNTER 2025-04-18 18:59 | Outpatient (CLI) | payer BC ==
--- NOTE | 2025-04-20 11:21 | P.PCN ---
Description of Procedure: POLYSOMNOGRAPHY REPORT PROCEDURE(S)/DATE(S): Polysomnography 04/18/2025 CLINICAL: Patient has been seen in the sleep center for evaluation of obstructive sleep apnea-hypopnea syndrome. Please see my consultation. Sleep study has been done for evaluation of patient breathing during the sleep. PROCEDURE: The standard montage for clinical polysomnography included the electroencephalogram, the electrooculogram, the mentalis surface electromyography and Lead II cardiography. The respiratory battery consisted of measurements of nasal/buccal air flow, pressure transducer measurements from nose, thoracic and/or abdominal effort and intercostal surface electromyography. Video monitoring has been done to check for any parasomnia events. Nocturnal oxyhemoglobin saturations were obtained by finger oximetry. Step-maddox titration with positive airway pressure was utilized to control the respiratory events, if necessary. RESULTS: During the diagnostic sleep study sleep efficiency was borderline 86.4%. Latency to sleep onset was increased to 35.5 min. Sleep architecture showed stage NI was short 2.1%, Delta sleep was short 3.6%, REM sleep was normal 22.7%. Respiratory channel showed 0 obstructive apneas, 0 mixed apneas, 0 central apneas, 13 hypopneas with lowest oxygen level 87%. Total apnea hypopnea index was 2.2. Heart rate was in the range between 60 and 68, average 64. EMG showed 0 periodic limb movements per hour. IMPRESSIONS: 1. No significant respiratory abnormalities have been documented during the sleep study. 2. No significant periodic limb movements have been documented. 3. Mild snoring have been documented during sleep test. Please see other impressions from consultation PLAN: 1. Sleep hygiene with regular time in bed for at least 7-1/2 hours . 2. I will see patient for follow-up visit to explain results of the test. 3. No driving if feeling sleepiness. Thank you very much for allowing me to participate in the management of your patient. Sincerely, Flavio Howard MD, PhD, FAASM. Diplomat of [place] [employer], Sleep Medicine Board by [place] [employer] [facility] [place] cc: Sean Hernandez DO
== END 2025-04-19 06:20 | disposition home or self-care (01) ==
LOC: 3 N SLEEP 18:59
PROVIDERS: ATTEND Internal Medicine
DX: G47.33 Obstructive sleep apnea (adult) (pediatric) (principal)
CPT/HCPCS: 95810